=== PATIENT | male | born 1990 | race Caucasian/White ===

== ENCOUNTER 2024-11-18 13:19 | Outpatient (AMB) | payer OTHER, SELFPAY ==
--- NOTE | 2024-11-18 13:35 | MHC.PC.OV ---
Vital Signs 11/18/24 13:36 Height 5 ft 9.37 in Weight 201 lb 8 oz BMI 29.4 BP 114/76 Blood Pressure Location Lt brachial Position Sitting Pulse 73 Pulse Source Pulse Oximeter Temp 97.3 F Temp Source Temporal Artery Scan Pulse Oximetry (%) 97 Oxygen Delivery Method Room Air Intake Visit Reasons: establish care Web Systems Developer Required: No Accompanied by: Self / Same As Patient Allergies sulfamethoxazole (From Bactrim) Allergy (Severe, Verified 11/18/24 13:45) Hives trimethoprim (From Bactrim) Allergy (Severe, Verified 11/18/24 13:45) Hives Medication List - Last Reconciled 11/18/24 by Esteban Slaughter PA-C clotrimazole 1% appl topical DAILY ferrous sulfate 325 mg PO DAILY folic acid 1 mg PO DAILY loratadine 10 mg PO DAILY omeprazole 20 mg PO DAILY Tobacco use date assessed: 11/18/24 Dental Screening Dental Screen Date: 11/18/24 Did you have a dental visit in the last 12 months?: Yes Did you have a dental problem in the last 6 months where you did not have access to dental care?: No Was dental information given to patient?: Patient has dentist HPI establish care HPI Details The patient is a 34-year-old male presenting for a new patient visit and medication management. The patient reports a history of allergic rhinitis, primarily triggered by exposure to cats and seasonal allergens such as grass and tree pollen. He manages these symptoms with loratadine, which he requires regularly due to his significant allergic reactions. The patient has been diagnosed with gastroesophageal reflux disease, for which he takes omeprazole. He experiences occasional exacerbations, particularly after consuming spicy foods, and sometimes forgets to take his medication when asymptomatic. The patient was previously informed of anemia following an episode of severe illness characterized by vomiting and dehydration. He was advised to take iron supplements, which he continues to use. 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 1. Little interest or pleasure in doing things: not at all 2. Feeling down, depressed, or hopeless: not at all 3. Trouble falling or staying asleep, or sleeping too much: not at all 4. Feeling tired or having little energy: not at all 5. Poor appetite or overeating: not at all 6. Feeling bad about yourself - or that you are a failure or have let yourself or your family down: not at all 7. Trouble concentrating on things, such as reading the newspaper or watching television: not at all 8. Moving or speaking so slowly that other people could have noticed. Or the opposite - being so fidgety or restless that you have been moving around a lot more than usual: not at all 9. Thoughts that you would be better off or of hurting yourself in some way: not at all Total score: 0 Depression Screening Interpretation: Negative Depression Screening Done: Yes 66114 - PHQ-9 Billing: Yes Source: Developed by Drs. James Gutierrez, Lazara Lorenzo, Sammy Ceja and colleagues, with an educational kedar from [employer]. Thrive Questionnaire Date Thrive assessed: 11/18/24 I am a: Patient What is your living situation today?: I have a steady place to live Within the past 12 months, did the food you bought not last and you didn't have the money to get more?: I choose not to answer this question Within the past 12 months, did you worry whether your food would run out before you got money to buy more?: I choose not to answer this question Do you have trouble paying for medicines?: I choose not to answer this question Do you have trouble getting transportation to medical appointments?: I choose not to answer this question Do you have trouble paying your heating and electricity bill?: I choose not to answer this question Do you have trouble taking care of your child, family member or friend?: I choose not to answer this question Do you have trouble with day-to-day activities such as bathing, preparing meals, shopping, managing finances, etc.?: No Are you currently unemployed and looking for a job?: I choose not to answer this question Are you interested in more education?: I choose not to answer this question Please select the resources that you would like help with: None Currently or been in a relationship where the following occur: No concerns reported THRIVE Score: 0 AUDIT C Alcohol Use Questionnaire (AUDIT-C) 1. How often do you have a drink containing alcohol?: Never 3. How often do you have six or more drinks on one occasion?: Never Total Score: 0 BRISEIDA-7 AMB Questionnaire BRISEIDA-7 Date BRISEIDA - 7 assessed: 11/18/24 Feeling nervous, anxious, or on edge: 0 = Not at all Not being able to stop or control worryin = Not at all Worrying too much about different things: 0 = Not at all Trouble relaxin = Not at all Being so restless that it is hard to sit still: 0 = Not at all Becoming easily annoyed or irritable: 0 = Not at all Feeling afraid as if something awful might happen: 0 = Not at all Total BRISEIDA-7 score (0-4 normal; 5-9 mild; 10-14 moderate; 15-21 severe): 0 Source: Developed by Drs. James Gutierrez, Lazara Lorenzo, Sammy Ceja and colleagues, with an educational kedar from [employer]. BRISEIDA-7 Assessment Billing BRISEIDA-7 Assessment Tool: BRISEIDA-7 Assessment 19386 Review of Systems Const Denies headache(s) Eyes Denies loss of vision ENT Denies vertigo, Denies dizziness, Denies headache(s) and Denies sore throat Card Denies chest pain, Denies leg edema and Denies lightheadedness Resp Denies cough, Denies hemoptysis and Denies wheezing GI Denies abdominal pain, Denies melena, Denies constipation, Denies diarrhea and Denies vomiting Denies dysuria, Denies urinary frequency and Denies urinary urgency Musc Denies arthralgias, Denies joint swelling, Denies numbness and Denies tingling Neuro Denies Abnormal speech present, Denies behavioral changes, Denies vertigo, Denies dizziness, Denies headache(s), Denies loss of vision, Denies memory loss, Denies numbness and Denies tingling Psych Denies anxiety, Denies behavioral changes, Denies depression, Denies memory loss and Denies panic attacks Jesús/Lymph Denies easy bleeding and Denies easy bruising Aller/Immun Denies wheezing Physical exam (Primary Care) Vital Signs: Last Vital Signs Temp 97.3 F 11/18/24 13:36 Pulse 73 11/18/24 13:36 BP 114/76 11/18/24 13:36 Pulse Ox 97 11/18/24 13:36 Oxygen Delivery Method Room Air 11/18/24 13:36 BMI result Body Mass Index 29.4 Tobacco/Smoking Status: Tobacco use Status Tobacco use date assessed 11/18/24 11/18/24 13:42 Patient Tobacco Use Status Former Tobacco user (quit 11/18/24 13:50 about 5 years ago) Tobacco use type Cigarette 11/18/24 13:50 e-Cigarette/Vaping Use Former Use 11/18/24 13:50 PHQ-9: PHQ-9 Score PHQ-9: Total score 0 11/18/24 15:15 Depression Screening Interpretation: Negative Thrive Assessment: Date of Thrive Assessment Date Thrive assessed 11/18/24 11/18/24 13:42 Currently or been in a relationship where the following occur: No concerns reported Const General: healthy appearing, no acute distress, alert and awake Nutritional Appearance: well nourished Orientation/consciousness: oriented to person, oriented to place and oriented to time HENMT Ears: TM's normal bilaterally General nose exam: Normal nasal mucous membranes and turbinates present Eyes Conjunctivae: conjunctivae normal Sclerae: sclerae normal Pupils: Equal, round and reactive pupils present Neck Neck: Yes no lymphadenopathy and Yes no JVD Thyroid: Thyroid normal Carotids: no bruits Resp Effort & Inspection: normal respiratory effort and not tachypneic Auscultation: no crackles, no rales, no rhonchi and no wheezes Cardio Rate: regular rate Rhythm: regular rhythm Heart sounds: no murmurs and normal S1 and S2 GI Palpation (GI): Soft to palpation, nontender, no hepatomegaly and no splenomegaly Auscultation: normal bowel sounds Skin General skin exam: no rashes or lesions noted and dry skin Neuro General: oriented to person, oriented to place and oriented to time Cranial nerves: Yes Equal, round and reactive pupils present Speech: No Abnormal speech present Gait exam (Neuro): Normal gait present Motor exam (neuro): no tremor noted Extrem Right upper extremity: full ROM Left upper extremity: full ROM Right lower extremity: full ROM; no edema Left lower extremity: full ROM; no edema Psych Mental Status: mental status grossly normal Speech and movement: Normal speech and movement present Affect: normal affect Attitude: cooperative Thought process: Normal thought process present Immunizations Boostrix Tdap 2.5 Lf unit-8 mcg-5 Lf/0.5 mL intramuscular syringe Performing Provider: Esteban Slaughter PA-C [facility] Administered by: ROGELIO Cruz on 11/18/24 15:15 Dose Route Admin Location Dispensed Lot Number Expiration Date NDC Director Of Knowledge Management 0.5 mL IM Left Deltoid 0.5 mL [id number] 01/30/27 [id number] [employer] Total Dispensed Waste 0.5 mL 0 % VIS Given Date VIS Provided VIS Publication Date 11/18/24 Single Vaccine 24 Eligibility Eligibility Date Funding Source Not [facility] Eligible 11/18/24 Private Coding Level of Care Code New Pt Level 4 (98502) Diagnoses Gastroesophageal reflux disease without esophagitis K21.9 Esophagitis presence: without esophagitis Allergy, subsequent encounter T78.40XD Encounter type: subsequent encounter Screening for diabetes mellitus (DM) Z13.1 Iron deficiency anemia, unspecified iron deficiency anemia type D50.9 Anemia type: iron deficiency Iron deficiency anemia type: unspecified iron deficiency Additional Codes BRISEIDA-7 Assessment Billing - BRISEIDA-7 Assessment Tool: BRISEIDA-7 Assessment 13848 ([id number]) PHQ-9 - 88394 - PHQ-9 Billing: Yes ([id number]) Assessment & Plan Assessment & Plan (1) GERD (gastroesophageal reflux disease): Code(s): K21.9 - Gastro-esophageal reflux disease without esophagitis Category: Medical Qualifiers: Esophagitis presence: without esophagitis Qualified Code(s): K21.9 - Gastro-esophageal reflux disease without esophagitis Plan: Patient has a history of gastric reflux, uses omeprazole on nearly a daily basis. We did discuss the long-term effects of the medication and he is willing to try to use the medication on as needed basis and modify his diet to reduce his GERD symptoms. (2) Allergies: Code(s): T78.40XA - Allergy, unspecified, initial encounter Category: Medical Qualifiers: Encounter type: subsequent encounter Qualified Code(s): T78.40XD - Allergy, unspecified, subsequent encounter Plan: Continues to use loratadine on a daily basis. He reports he is mostly allergic to cats (3) Screening for diabetes mellitus (DM): Code(s): Z13.1 - Encounter for screening for diabetes mellitus Category: Medical Plan: As per HPI (4) Anemia: Code(s): D64.9 - Anemia, unspecified Category: Medical Qualifiers: Anemia type: iron deficiency Iron deficiency anemia type: unspecified iron deficiency Qualified Code(s): D50.9 - Iron deficiency anemia, unspecified Plan: The patient will continue iron supplementation, with follow-up labs to assess current anemia status and determine the necessity of ongoing treatment. Orders: Orders Complete Blood Count no Diff 11/18/24 D50.9 - Iron deficiency anemia, unspecified IRON PROFILE 11/18/24 D50.9 - Iron deficiency anemia, unspecified TDaP Immunization 11/18/24 K21.9 - Gastro-esophageal reflux disease without esophagitis, Z23 - Encounter for immunization Vitamin B12 and Folate 11/18/24 D50.9 - Iron deficiency anemia, unspecified, E53.8 - Deficiency of other specified B group vitamins Comprehensive [place]. Panel Fast 11/18/24 Z13.1 - Encounter for screening for diabetes mellitus Medications: New loratadine 10 mg PO DAILY 90 tabs 1RF 90 days T78.40XA - Allergy, unspecified, initial encounter omeprazole 20 mg PO DAILY 90 caps 1RF 90 days K21.9 - Gastro-esophageal reflux disease without esophagitis
[2024-11-18 13:36] VITALS: BP 114/76; PULSE 73; TEMP 36.3; O2SAT 97; BMI 29.4
--- OUTSIDE RECORDS SUMMARY | 2024-11-18 15:12 | XMS_ITS | Clinical Summary ---
Author Organization [facility] [address] [place] [address] [place] [phone] Phone Care Team Providers Care Genetic Coordinator Name Role Phone Unavailable Primary Care Provider Unavailabl e Allergies Active Allergy Reactions Criticality Noted Date Comments Sulfamethoxazole-Trimethoprim 2023 Other 03/20/2024 Seasonal Allergies Medications loratadine (CLARITIN) 10 mg tablet Take 1 tablet (10 mg total) by mouth 1 (one) time each day. 90 tablet 1 08/13/2024 Active omeprazole (PriLOSEC) [address] capsule Take 1 capsule (20 mg total) by mouth 1 (one) time each day. 90 capsule 1 08/13/2024 Active ferrous sulfate 325 mg (65 mg iron) EC tablet Take 1 tablet (325 mg total) by mouth 1 (one) time each day with breakfast. Do not crush, chew, or split. 90 each 08/20/2024 Active clotrimazole (LOTRIMIN) 1 % cream APPLY TO AFFECTED AREA TWICE A DAY 30 g 09/29/2024 Active folic acid (FOLVITE) 1 mg tablet TAKE 1 TABLET BY MOUTH 1 TIME EACH DAY. 30 tablet 09/29/2024 Active ondansetron (ZOFRAN) 4 mg tablet TAKE 1 TABLET (4 MG TOTAL) BY MOUTH EVERY 8 HOURS IF NEEDED FOR NAUSEA OR VOMITING FOR UP TO 7 DAYS. 20 tablet 09/29/2024 Active Active Problems Problem Noted Date Diagnosed Date Mild intermittent asthma 03/20/2024 Elevated blood pressure reading 03/20/2024 Encounters Date Type Department Care Team Description 10/29/[address] [facility] [address] [address] [place] [address] Preciado SantaADRIANA fuentes 10/24/2024 5:30 PM EDT - 10/24/2024 11:59 PM EDT Hospital Encounter [facility] MRI [address] [place] [phone] Cystic meniscus, unspecified medial meniscus, right knee Discharge Disposition: Home or Self Care 09/18/2024 10:00 AM EDT Office Visit Orthopedic Surgery - [place] [address] [facility] [address] [place] [phone] Jodi Rodriguez MD Cyst of medial meniscus of right knee (Primary Dx); Acute pain of right knee 08/26/2024 3:00 PM EDT Office Visit Adult [id number] [place], [place] [phone] Darya Meraz PA Balanitis (Primary Dx); Screen for STD (sexually transmitted disease) 08/22/2024 Telephone Adult [address] [phone] Josiah Tinoco MD std from Last 3 Months Immunizations Name Administration Dates Next Due Influenza Quadravalent, MDCK , 0.5ml, preservative free (Flucelvax) 6mo and older 05/06/2018 Surgical History Surgery Date Site/Laterality Comments SHOULDER SURGERY 01/01/2018 Right PROCEDURE: HISTORICAL SHOULDER SURGERY; COMMENT: open treatment of clavicular fracture, includes internal fixation. Medical History Medical History Date Comments Mild intermittent asthma DX:Mild intermittent asthma Tobacco abuse DX:Tobacco abuse Family History Relation Name Status Comments Brother Alive healthy Father Alive healthy Mother Alive healthy Social History Tobacco Use Types Packs/Day Years Used Date Smoking Tobacco: Former Cigarettes Smokeless Tobacco: Former Tobacco Cessation:Counseling Given: Not Answered Alcohol Use Standard Drinks/Week Comments Yes 0 (1 standard drink = 0.6 oz pur e alcohol) Sex and Gender Information Value Date Recorded Sex Assigned at Not on file Legal Sex Male 7:23 PM EST Gender Identity Not on file Sexual Orientation Not on file Obstetrics History Last Filed Vital Signs Vital Sign Reading Time Taken Comments Blood Pressure 136/88 08/26/2024 3:58 PM EDT Pulse 96 08/26/2024 2:56 PM EDT Temperature 36.8 ??C (98.3 ??F) 08/26/2024 2:56 PM ED T Respiratory Rate 18 08/26/2024 2:56 PM EDT Oxygen Saturation 97% 06/26/2024 8:33 AM EST Inhaled Oxygen Concentration - - Weight 93.9 kg (207 lb) 09/18/2024 10:12 AM EDT Height 177.8 cm (5' 10 ) 09/18/2024 10:12 AM EDT Body Mass Index 29.7 09/18/2024 10:12 AM EDT Plan of Treatment Health Maintenance Due Date Last Done Comments DTaP,Tdap,and Td Vaccines (1 - Tdap) 2010 Hepatitis A Vaccines (1 of 2 - Risk 2-dose series) 2010 Hepatitis B Vaccines (1 of 3 - 19+ 3-dose series) 2010 Pneumococcal Vaccine: Pediatrics (0 to 5 Years) and At-Risk Patients (6 to 64 Years) (1 of 2 - PCV) 2010 Depression Screening 05/06/2022 Social Influencers of Health Screening 05/06/2022 COVID-19 Vaccine (2023-2 5 season) 2024 Influenza Vaccine (Season Ended) 2025 05/06/2018 HIV Screening Completed 08/26/2024, 06/26/2024, 04/17/2023 Hepatitis C Screening Completed 08/26/2024 , 06/26/2024 HIB Vaccines Aged Out No longer eligi ble based on patient's age to complete this topic HPV Vaccines Aged Out No longer eligi ble based on patient's age to complete this topic IPV Vaccines Aged Out No longer eligi ble based on patient's age to complete this topic MMR Vaccines Aged Out No longer eligi ble based on patient's age to complete this topic Meningococcal ACWY Vaccine Aged Out N o longer eligible based on patient's age to complete this topic Meningococcal B Vaccine Aged Out No l onger eligible based on patient's age to complete this topic RSV Immunization Patients Under 20 months Aged Out No longer eligible b ased on patient's age to complete this topic Varicella Vaccines Aged Out No longer eligible based on patient's age to complete this topic Procedures Procedure Name Priority Date/Time Associated Diagnosis Comments MR KNEE WO CONTRAST RIGHT Routine 10/24/2024 6:10 PM EDT Cystic meniscus, unspecified medial meniscus, right knee HEPATITIS PANEL, ACUTE WITH REFLEX TO CONFIRMATION Routine 08/26/2024 3:43 PM EDT Screen for STD (sexually transmitted disease) HIV 1, 2 ANTIBODY, P24 ANTIGEN WITH REFLEX TO DIFFERENTIATION Routine 08/26/2024 3:43 PM EDT Screen for STD (sexually transmitted disease) TREPONEMA PALLIDUM ANTIBODY WITH REFLEX TO RPR AND PARTICLE AGGLUTINATION Routine 08/26/2024 3:43 PM EDT Screen for STD (sexually transmitted disease) HERPES SIMPLEX VIRUS 1 AND 2, IGG Routine 08/26/2024 3:43 PM EDT Screen for STD (sexually transmitted disease) CHLAMYDIA TRACHOMATIS AND NEISSERIA GONORRHOEAE PCR Routine 08/26/2024 3:43 PM EDT Screen for STD (sexually transmitted disease) from Last 3 Months Results * MR Knee wo Contrast Right (10/24/2024 6:10 PM EDT) Anatomical Region Laterality Modality Lower Extremities, Knee Right Magnetic Resonance 10/25/2024 4:56 AM EDT Impressions 10/25/2024 5:13 AM EDT 1. ??1.5 x 2.7 cm multiloculated ganglion at the level of the distal semimembranosus 2. ??Ruptured/leaking popliteal cyst with edema in the proximal right calf 3. ??Horizontal tearing of the body and posterior horn of the medial meniscus 4. ??Grade 1 MCL sprain -------- FINAL REPORT -------- Dictated By: Lata Waldrop Dictated Date: 10/25/2024 04:56 ET Assigned Physician: Lata Waldrop Reviewed and Electronically Signed By: Lata Waldrop Signed Date: 10/25/2024 05:13 ET Workstation ID: [id number] Transcribed By: Self Edit Transcribed Date: 10/25/2024 04:56 ET Narrative 10/25/2024 5:13 AM EDT INDICATION: cyst ??of medial meniscus of right knee ??palpable lump along the medial aspect of the knee. COMPARISON: ??None TECHNIQUE: ??Multiplanar, multisequence MRI examination was performed of the RIGHT knee without intravenous contrast. FINDINGS: Menisci:Horizontal signal involving the body and posterior horn of the medial meniscus in keeping with horizontal tear. ??Lateral meniscus is intact. Ligaments:Grade 1 MCL sprain. ??ACL, PCL and LCL complex are intact. ?? Tendons:Quadriceps mechanism and popliteus tendon are intact. Bones:No acute fracture or dislocation. ??Bone marrow signal is unremarkable. ??Mild lateral patellar tilt. Cartilage: Patellofemoral:Preserved Medial tibiofemoral:Mild superficial fissuring involving the weightbearing portion of the medial femoral condyle at site of patient's meniscal tear. Lateral tibiofemoral:Preserved Miscellaneous:Multiloculated fluid signal along the posterior medial aspect of the right knee at the level of the distal semimembranosus tendon measuring approximately 1.5 x 2.7 cm (series 2, image 7; series 3, image 29) in keeping with a ganglion. ??Ruptured/leaking popliteal cyst with mild edema within the proximal right calf. ??Right knee joint fluid. ??Mild prepatellar subcutaneous soft tissue swelling. Procedure Note Lata Waldrop MD - 10/25/2024 INDICATION: cyst of medial meniscus of right knee palpable lump alongthe medial aspect of the knee. COMPARISON: None TECHNIQUE: Multiplanar, multisequence MRI examination was performed ofthe RIGHT knee without intravenous contrast. FINDINGS: Menisci:Horizontal signal involving the body and posterior horn of themedial meniscus in keeping with horizontal tear. Lateral meniscus isintact. Ligaments:Grade 1 MCL sprain. ACL, PCL and LCL complex are intact. Tendons:Quadriceps mechanism and popliteus tendon are intact. Bones:No acute fracture or dislocation. Bone marrow signal isunremarkable. Mild lateral patellar tilt. Cartilage: Patellofemoral:Preserved Medial tibiofemoral:Mild superficial fissuring involving the weightbearingportion of the medial femoral condyle at site of patient's meniscaltear. Lateral tibiofemoral:Preserved Miscellaneous:Multiloculated fluid signal along the posterior medialaspect of the right knee at the level of the distal semimembranosus tendonmeasuring approximately 1.5 x 2.7 cm (series 2, image 7; series 3, image29) in keeping with a ganglion. Ruptured/leaking popliteal cyst with mildedema within the proximal right calf. Right knee joint fluid. Mildprepatellar subcutaneous soft tissue swelling. IMPRESSION: 1. 1.5 x 2.7 cm multiloculated ganglion at the level of the distalsemimembranosus 2. Ruptured/leaking popliteal cyst with edema in the proximal rightcalf 3. Horizontal tearing of the body and posterior horn of the medialmeniscus 4. Grade 1 MCL sprain -------- FINAL REPORT -------- Dictated By: Lata Waldrop Dictated Date: 10/25/2024 04:56 ET Assigned Physician: Lata Waldrop Reviewed and Electronically Signed By: Lata Waldrop Signed Date: 10/25/2024 05:13 ET Workstation ID: [id number] Transcribed By: Self Edit Transcribed Date: 10/25/2024 04:56 ET us Jodi Rodriguez MD IMG MRI PROCEDURES Final Resul t * HIV 1,2 antibody, p24 antigen with reflex to differentiation (08/26/2024 3:43 PM EDT) HIV Combo AB/AG Negative Negative LAB CHEMISTRY METHOD 08/26/2024 7:11 PM EDT [facility] Blood Venous blood specimen / Unknown Venipuncture / Unknown 08/26/2024 3:43 PM EDT 08/26/2024 3:43 PM EDT Narrative [facility] - 08/26/2024 7:11 PM EDT This assay is a 4th generation assay allowing for earlier detection of HIV infection by detecting the presence of the HIV-1 p24 antigen as well as the traditional antibodies to HIV type 1 (including group O) and type 2. ??Use of a 4th generation assay is the current CDC recommendation for HIV screening. [facility] Bahanna Meraz [place] LAB BLOOD ORDERABLES Fin al Result Performing Organization Address [facility]/ZIP Co de Phone Number [facility] [address] [place] [address], [place] [phone] * Treponema pallidum antibody with reflex to RPR and particle agglutination (08/26/2024 3:43 PM EDT) [facility] T. Pallidum Antibodies Negative Negative LAB CHEMISTRY METHOD 08/26/2024 8:06 PM EDT [facility] Blood Venous blood specimen / Unknown Venipuncture / Unknown 08/26/2024 3:43 PM EDT 08/26/2024 3:43 PM EDT [facility] [place] LAB BLOOD ORDERABLES Fin al Result Performing Organization Address [facility] Co de Phone Number [facility] [address] [place] [address], [place] [phone] * Hepatitis panel, acute with reflex to confirmation (08/26/2024 3:43 PM EDT) [facility] Hepatitis B Surface Ag Negative Negative LAB CHEMISTRY METHOD 08/26/2024 8:12 PM EDT [facility] Hepatitis A Antibody IgM Negative Negative LAB CHEMISTRY METHOD 08/26/2024 8:12 PM EDT [facility] Hep B Core IgM Negative Negative LAB CHEMISTRY METHOD 08/26/2024 8:12 PM EDT [facility] Hepatitis C Antibody Negative Negative LAB CHEMISTRY METHOD 08/26/2024 8:12 PM EDT [facility] Blood Venous blood specimen / Unknown Venipuncture / Unknown 08/26/2024 3:43 PM EDT 08/26/2024 3:43 PM EDT Draya Armstrong Bam ORTIZ LAB BLOOD ORDERABLES Fin al Result [facility] [address] [place] [address], [place] [phone] * Herpes simplex virus 1 and 2, IgG (08/26/2024 3:43 PM EDT) HSV 1 IgG 0.17 <=0.90 index luis miguel LAB CHEMISTRY METHOD 08/27/2024 10:20 AM EDT [facility] HSV-1 IgG Interpretation Negative Negative LAB CHEMISTRY METHOD 08/27/2024 10:20 AM EDT [facility] HSV 2 IgG 0.08 <=0.90 index luis miguel LAB CHEMISTRY METHOD 08/27/2024 10:20 AM EDT [facility] HSV-2 IgG Interpretation Negative Negative LAB CHEMISTRY METHOD 08/27/2024 10:20 AM EDT [facility] Blood Venous blood specimen / Unknown Venipuncture / Unknown 08/26/2024 3:43 PM EDT 08/26/2024 3:43 PM EDT Daryaemily SlaughterPattinicole ORTIZ LAB BLOOD ORDERABLES Fin al Result [facility] [address] [place] [address], [place] [phone] * Chlamydia trachomatis and Neisseria gonorrhoeae molecular study (08/26/2024 3:43 PM EDT) Neisseria gonorrhoeae PCR Negative Negative LAB MOLECULAR DIAGNOSTICS METHOD 08/27/2024 9:44 AM EDT [facility] Chlamydia trachomatis PCR Negative Negative LAB MOLECULAR DIAGNOSTICS METHOD 08/27/2024 9:44 AM EDT [facility] Swab First stream urine specimen / Unknown Non-blood Collection / Unknown 08/26/2024 3:43 PM EDT 08/26/2024 3:43 PM EDT Darya ORTIZ LAB MICROBIOLOGY - GENER AL ORDERABLES Final Result [facility] [address] [place] [address], from Last 3 Months Insurance [facility] Diagn[employer] PLAN
== END 2024-11-18 14:06 | disposition home or self-care (01) ==
PROVIDERS: PCP Physician Assistant; Visit Provider Physician Assistant
DX: K21.9 Gastro-esophageal reflux disease without esophagitis (principal); T78.40XD Allergy, unspecified, subsequent encounter; Z13.1 Encounter for screening for diabetes mellitus; D50.9 Iron deficiency anemia, unspecified

== ENCOUNTER → 2024-11-18 13:19 | Outpatient (BNVA) | payer OTHER, SELFPAY | PROVIDERS: Visit Provider Physician Assistant | DX: K21.9 Gastro-esophageal reflux disease without esophagitis (principal); J30.9 Allergic rhinitis, unspecified; D50.9 Iron deficiency anemia, unspecified; Z88.9 Allergy status to unspecified drugs, medicaments and biological substances; Z23 Encounter for immunization | CPT/HCPCS: 90471; 90715; 96127; 99202 ==

== ENCOUNTER 2025-01-08 09:39 | Outpatient (AMB) | payer OTHER, SELFPAY ==
[2025-01-08 09:47] VITALS: BP 102/60; PULSE 81; TEMP 36.7; O2SAT 96; BMI 30.3
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
--- OUTSIDE RECORDS SUMMARY | 2025-01-08 10:05 | XMS_ITS | Clinical Summary ---
Author Organization [facility] [address] [place] [address] [place] [phone] Phone Care Team Providers Care Kaiawhina Name Role Phone Unavailable Primary Care Provider [...] Care Team Description 10/29/2024 Telephone Orthopedic Surgery [facility] [address] [address] [place] [phone] Santa Preciado, ADRIANA 10/24/2024 5:30 PM EDT - 10/24/2024 11:59 PM EDT Hospital Encounter [facility] MRI [address] [place] [phone] Cystic meniscus, unspecified medial meniscus, right knee Discharge Disposition: Home or Self Care from Last 3 Months Immunizations Name Administration [...] 96 08/26/2024 2:56 PM EDT Temperature 36.8 C (98.3 F) 08/26/2024 2:56 PM EDT Respiratory Rate 18 08/26/2024 2:56 PM EDT [...] 5 Years) and At-Risk Patients (6 to 49 Years) (1 of 2 - PCV) 2010 Social Influencers of Health Screening 05/06/2022 COVID-19 Vaccine (1 - 2023-2 5 season) 2024 Depression Screening 06/04/2024 Influenza Vaccine (#1) 2025 05/06/2018 HIV Screening Completed 08/26/2024, 06/26/2024, [...] (sexually transmitted disease) from Last 3 Months or Most Recently Relevant to Health Maintenance Results * MR Knee wo Contrast Right (10/24/2024 6:10 PM EDT) Anatomical Region Laterality Modality Lower Extremities, Knee Right Magnetic Resonance 10/25/2024 4:56 AM EDT Impressions 10/25/2024 5:13 AM EDT 1. 1.5 x 2.7 cm multiloculated ganglion at the level of the distal semimembranosus 2. Ruptured/leaking popliteal cyst with edema in the proximal right calf 3. Horizontal tearing of the body and posterior horn of the medial meniscus 4. Grade 1 MCL sprain -------- FINAL REPORT -------- Dictated By: Lata Waldrop Dictated Date: 10/25/2024 04:56 ET Assigned Physician: Lata Waldrop Reviewed and Electronically Signed By: Lata Waldrop Signed Date: 10/25/2024 05:13 ET Workstation ID: [id number] Transcribed By: Self Edit Transcribed Date: 10/25/2024 04:56 ET Narrative 10/25/2024 5:13 AM EDT INDICATION: cyst of medial meniscus of right knee palpable lump along the medial aspect of the knee. COMPARISON: None TECHNIQUE: Multiplanar, multisequence MRI examination was performed of the RIGHT knee without intravenous contrast. FINDINGS: Menisci:Horizontal signal involving the body and posterior horn of the medial meniscus in keeping with horizontal tear. Lateral meniscus is intact. Ligaments:Grade 1 MCL sprain. ACL, PCL and LCL complex are intact. Tendons:Quadriceps mechanism and popliteus tendon are intact. Bones:No acute fracture or dislocation. Bone marrow signal is unremarkable. Mild lateral patellar tilt. Cartilage: Patellofemoral:Preserved Medial [...] image 29) in keeping with a ganglion. Ruptured/leaking popliteal cyst with mild edema within the proximal right calf. Right knee joint fluid. Mild prepatellar subcutaneous soft tissue swelling. Procedure Note [...] Signed Date: 10/25/2024 05:13 ET Workstation ID: [id number] Transcribed By: Self Edit Transcribed Date: 10/25/2024 04:56 ET us Jodi Rodriguez MD IMG MRI PROCEDURES Final Resul t * HIV 1,2 antibody, p24 antigen with reflex to differentiation (08/26/2024 3:43 PM EDT) [facility] HIV Combo AB/AG Negative Negative LAB CHEMISTRY METHOD 08/26/2024 7:11 PM EDT [facility] Blood Venous blood specimen / Unknown Venipuncture / Unknown 08/26/2024 3:43 PM EDT 08/26/2024 3:43 PM EDT Narrative [facility] - 08/26/2024 7:11 PM EDT This assay is a 4th generation assay allowing for earlier detection of HIV infection by detecting the presence of the HIV-1 p24 antigen as well as the traditional antibodies to HIV type 1 (including group O) and type 2. Use of a 4th generation assay is the current CDC recommendation for HIV screening. Darya ORTIZ LAB BLOOD ORDERABLES Fin al Result Performing Organization Address City/[facility]/ZIP Co de Phone Number [facility] [address] [place] [address], [place] [phone] * Hepatitis panel, acute with reflex to confirmation (08/26/2024 3:43 PM EDT) [facility] Hepatitis B Surface Ag Negative Negative LAB CHEMISTRY METHOD 08/26/2024 8:12 PM EDT [facility] Hepatitis A Antibody IgM Negative Negative LAB CHEMISTRY METHOD 08/26/2024 8:12 PM EDT [facility] Hep B Core IgM Negative Negative LAB CHEMISTRY METHOD 08/26/2024 8:12 PM EDT [facility] Hepatitis C Antibody Negative Negative LAB CHEMISTRY METHOD 08/26/2024 8:12 PM EDT [facility] Blood Venous blood specimen / Unknown Venipuncture / Unknown 08/26/2024 3:43 PM EDT 08/26/2024 3:43 PM EDT Darya ORTIZ LAB BLOOD ORDERABLES Fin al Result [facility] [address] [place] [address], from Last 3 Months or Most Recently Relevant to Health Maintenance Insurance [facility]
--- OUTSIDE RECORDS SUMMARY | 2025-01-08 10:05 | XMS_ITS | Clinical Summary ---
Author Organization [facility] Address [address] [address] Phone Care Team Providers Care Extrusion Die Repairer Name Role Phone Josiah Tinoco MD Primary Care Provider Allergies Active Allergy Reactions Criticality Noted Date Comments Sulfamethoxazole-Trimetho prim Hives 08/04/2024 Droperidol Dystonia High 08/04/2024 Abnormal mouth and tongue movements, restlessness and irritability Medications No known medications Social History Tobacco Use Types Packs/Day Years Used Date Smoking Tobacco: Never Assessed Education Answer Date Recorded Are you interested in more education? Not on wesley e 08/04/2024 Are you concerned about learning? Not on file 08/04/2024 No 08/04/2024 No 08/04/2024 Digital Access Answer Date Recorded No 08/04/2024 No 08/04/2024 Reliable internet access at home? Not on file 08/04/2024 Device with a working camera? Not on file Intimate Partner Violence Answer Date R ecorded Are you denied basic needs s uch as food, clothing, or medical care? No 08/04/2024 In the past 12 months have y ou been in a relationship with a person who hurts, threatens, or tries to control you? No 08/04/2024 Are you denied basic needs s uch as food, clothing, or medical care? No 08/04/2024 In the past 12 months have y ou been in a relationship with a person who hurts, threatens, or tries to control you? No 08/04/2024 Comments Unknown Sex and Gender Information Value Date Recorded Sex Assigned at Unknown 08/04/2024 12:12 PM EST Legal Sex Male 11:30 AM EST Gender Identity Other 08/04/2024 12:12 PM EST Sexual Orientation Don't know 08/04/2024 12 :12 PM EST Last Filed Vital Signs Vital Sign Reading Time Taken Comments Blood Pressure 141/87 08/04/2024 10:08 PM EST Pulse 82 08/04/2024 10:08 PM EST Temperature 37.2 C (99 F) 08/04/2024 10:08 PM EST Respiratory Rate 20 08/04/2024 10:08 PM EST Oxygen Saturation 97% 08/04/2024 10:08 PM EST Inhaled Oxygen Concentration - - Weight 81.6 kg (180 lb) 08/04/2024 11:36 AM EST Height 177.8 cm (5' 10 ) 08/04/2024 11:36 AM EST Body Mass Index 25.83 08/04/2024 11:36 AM EST Plan of Treatment Health Maintenance Due Date Last Done Comments Adult Td,Tdap Booster 1991 DEPRESSION SCREENING 2003 SMOKING Hx and SMOKELESS TOB ACCO SCREENING 2004 HEPATITIS C SCREENING 2009 HIV ONE-TIME SCREENING (18-6 5 YEARS) 2009 COVID-19 VACCINE ( - 2023-2 5 season) 2024 HEPATITIS A VACCINES Aged Out No long er eligible based on patient's age to complete this topic HIB VACCINES Aged Out No longer eligi ble based on patient's age to complete this topic MENINGOCOCCAL VACCINES (ACWY) Aged Out No longer eligible based on patient's age to complete this topic MENINGOCOCCAL VACCINES (B) Aged Out N o longer eligible based on patient's age to complete this topic PNEUMOCOCCAL VACCINES (0-49 years) Aged Out No longer eligible based on patient's age to complete this topic Medical Devices Not on file Insurance [facility] ACO [facility] [employer] [facility] [employer] Care Teams Extrusion Die Repairer Relationship Specialty Start Date End Date Josiah Tinoco MD [address] [place] [address] PCP - General 08/04/24 Additional Source Comments The information contained in this document represents components of the legal health record. It is not the complete legal health record.[facility]
--- OUTSIDE RECORDS SUMMARY | 2025-01-08 10:05 | XMS_ITS ---
Author Name [facility] Organization Unknown Care Team Organization Name Specialty Phone Email Start Date End Da te [facility] Josiah Tinoco Primary Care 08/09/202201/02 [facility] Jatinder Ross Primary Care 04/11/2022
== END 2025-01-08 11:10 | disposition home or self-care (01) ==
PROVIDERS: PCP Physician Assistant; Visit Provider Nurse Practitioner Family
DX: S70.02XA Contusion of left hip, initial encounter (principal); S20.212A Contusion of left front wall of thorax, initial encounter

== ENCOUNTER 2025-01-08 09:39 | Outpatient (REF) | payer OTHER, SELFPAY ==
--- NOTE | ~2025-01-08 | XR_ITS ---
EXAMINATION: XR RIBS, LEFT CLINICAL INFORMATION: S20.219A - Contusion of unspecified front wall of thorax, initial encounter COMPARISON: None available. TECHNIQUE: 3 views of the left ribs were obtained. FINDINGS: Lungs are clear. No consolidation, pneumothorax, or pleural effusion. The cardiomediastinal silhouette and pulmonary vasculature are normal. Osseous structures are unremarkable. Ribs are intact. No fractures are identified. XR/XR ribs LT min 3V w CXR1V IMPRESSION: No acute findings of the thorax or left ribs. Electronically signed by: Kurt Marquez MD 01/08/2025 10:40 AM EDT
--- NOTE | ~2025-01-08 | XR_ITS ---
EXAMINATION: XR HIP, LEFT CLINICAL INFORMATION: S70.02XA - Contusion of left hip, initial encounter COMPARISON: None available. TECHNIQUE: AP pelvis, and 2 views of the left hip. FINDINGS: No fracture, dislocation, or suspicious bone lesion. There is normal bone mineralization. The hip joints are intact and have a normal appearance. There is normal acetabular coverage. Femoral heads are normal in contour without evidence of AVN. The sacrum and SI joints appear normal. No soft tissue abnormalities. XR/XR hip LT w PEL1V IMPRESSION: Normal pelvis and left hip. Electronically signed by: Kurt Marquez MD 01/08/2025 10:39 AM EDT
== END 2025-01-08 09:40 | disposition home or self-care (01) ==
LOC: HO.HMGCX 09:39
PROVIDERS: PCP Physician Assistant; Visit Provider Nurse Practitioner Family
DX: S20.212A Contusion of left front wall of thorax, initial encounter (principal); S70.02XA Contusion of left hip, initial encounter; R07.81 Pleurodynia; M25.552 Pain in left hip; V18.0XXA Pedal cycle driver injured in noncollision transport accident in nontraffic accident, initial encounter
CPT/HCPCS: 71101; 73502; 99212

== ENCOUNTER → 2025-01-08 10:15 | Outpatient (BNV) | payer OTHER, SELFPAY | PROVIDERS: PCP Physician Assistant; Visit Provider Radiology Diagnostic Radiology | DX: R07.89 Other chest pain (principal); M25.552 Pain in left hip | CPT/HCPCS: 71101; 73502 ==

== ENCOUNTER 2025-01-13 12:52 | Outpatient (AMB) | payer OTHER, SELFPAY ==
--- OUTSIDE RECORDS SUMMARY | 2025-01-13 13:33 | XMS_ITS | Clinical Summary ---
Author Organization [facility] [address] [place] [address] [place] [phone] Phone Care Team Providers Care Trimmer Helper Name Role Phone Unavailable Primary Care Provider [...] Care Team Description 10/29/2024 Telephone Orthopedic Surgery [facility] [address] [address] [place] [phone] Santa Preciado, ARDIANA 10/24/2024 5:30 PM EDT - 10/24/2024 11:59 PM EDT Hospital Encounter [facility] MRI [address] [place] [phone] Cystic meniscus, unspecified medial meniscus, right knee [...] Signed Date: 10/25/2024 05:13 ET Workstation ID: [id number] Transcribed By: Self Edit Transcribed Date: 10/25/2024 [...] Signed Date: 10/25/2024 05:13 ET Workstation ID: [id number] Transcribed By: Self Edit Transcribed Date: 10/25/2024 04:56 ET us Jodi Rodriguez MD IMG MRI PROCEDURES Final Resul t * HIV 1,2 antibody, p24 antigen with reflex to differentiation (08/26/2024 3:43 PM EDT) [facility] HIV Combo AB/AG Negative Negative LAB CHEMISTRY METHOD 08/26/2024 7:11 PM EDT [facility] Blood Venous blood specimen / Unknown Venipuncture / Unknown 08/26/2024 3:43 PM EDT 08/26/2024 3:43 PM EDT Narrative [facility] - 08/26/2024 7:11 PM EDT This [...] ORDERABLES Fin al Result Performing Organization Address City/[facility]/ZIP Co de Phone Number [facility] [address] [place] [address], [place] [phone] * Hepatitis panel, acute with reflex to confirmation (08/26/2024 3:43 PM EDT) [facility] Hepatitis B Surface Ag Negative Negative LAB CHEMISTRY METHOD 08/26/2024 8:12 PM EDT [facility] Hepatitis A Antibody IgM Negative Negative LAB CHEMISTRY METHOD 08/26/2024 8:12 PM EDT [facility] Hep B Core IgM Negative Negative LAB CHEMISTRY METHOD 08/26/2024 8:12 PM EDT [facility] Hepatitis C Antibody Negative Negative LAB CHEMISTRY METHOD 08/26/2024 8:12 PM EDT [facility] Blood Venous blood specimen / Unknown Venipuncture / Unknown 08/26/2024 3:43 PM EDT 08/26/2024 3:43 PM EDT Darya ORTIZ LAB BLOOD ORDERABLES Fin al Result [facility] [address] [place] [address], from Last 3 Months or Most Recently Relevant to Health Maintenance Insurance [facility] HEALTH [facility]
--- OUTSIDE RECORDS SUMMARY | 2025-01-13 13:33 | XMS_ITS | Clinical Summary ---
Author Organization [facility] Address [address] [address] Phone Care Team Providers Care Security Risk Analyst Name Role Phone Josiah Tinoco MD Primary [...] topic Medical Devices Not on file Insurance [facility] [employer] ALLANCE [facility] Care Teams Security Risk Analyst Relationship Specialty Start Date End Date Josiah Tinoco MD [address] [place] [address] PCP - General 08/04/24 Additional Source Comments The information contained in this document represents components of the legal health record. It is not the complete legal health record.[facility]
[2025-01-13 13:41] VITALS: BP 110/78; PULSE 95; TEMP 36.7; O2SAT 96; BMI 30.4
--- NOTE | 2025-01-13 13:41 | MHC.OFFWIV ---
Intake Vital Signs 01/13/25 13:41 Height 5 ft 9 in Weight 206 lb BMI 30.4 BP 110/78 Blood Pressure Location Lt brachial Position Sitting Pulse 95 Pulse Source Pulse Oximeter Temp 98.0 F Temp Source Oral Pulse Oximetry (%) 96 Oxygen Delivery Method Room Air Intake Visit Reasons: EP rash under arm Intake Note: presents with itchy rash to left side of body, back and chest. Also c/o sore in nose. Patient Tobacco Use Status: Former Tobacco user (quit about 5 years ago) Allergies sulfamethoxazole (From Bactrim) Allergy (Severe, Verified 01/13/25 13:43) Hives trimethoprim (From Bactrim) Allergy (Severe, Verified 01/13/25 13:43) Hives Do you need a note to return to daycare/school/sports/work: No HPI HPI Comments History of Present Illness Details History - The patient is a 34-year-old male presenting with a rash with blisters. - The rash was first noticed last week, with blisters appearing under the armpit, on the neck, and back. - Initially thought to be bug bites, the blisters are itchy and sting, with some popping upon scratching. - The patient has been using Lotrimin and antibiotic ointment for relief, with no significant improvement. - The patient rides bikes frequently and is often outdoors, but does not recall specific exposure to plants or allergens. - No other systemic symptoms such as wheezing or shortness of breath were reported. - He denies new lotions, soaps, detergents, medications, foods, travel, pets, cologne, deodorants, or contact. Physical Exam General: Cooperative, healthy appearing, comfortable, no acute distress and well developed Orientation: Patient oriented x3 Limitations: No limitations Mouth: normal, moist oral mucosa Neck: Normal visual inspection with blisters noted, Yes full ROM Respiratory: Normal respiratory effort and able to speak in complete sentences. Clear to auscultation bilaterally. No w/r/r noted. Cardiovascular: RRR, no m/r/g noted. Normal S1 and S2 Skin: Erythematous, flat, dry, flaky, blanchable macules noted on the chest wall, left axilla, flank, back and neck. No discharge noted. No induration noted. No blisters noted. Patient was informed and verbally consented to the use of an ambient scribe for clinic note documentation during this visit [facility] Medical History (Updated 01/08/25 @ 10:14 by Lizabeth Garzon NP) Chest wall contusion Contusion of hip, left Social History (Updated 11/18/24 @ 13:50 by Esteban Slaughter PA-C) Housing: House Alcohol intake: current Alcohol intake frequency: holidays/special occasions only Patient Tobacco Use Status: Former Tobacco user (quit about 5 years ago) Tobacco use type: Cigarette e-Cigarette/Vaping Use: Former Use Substance Use Type: Marijuana service: No Current occupational status: employed Current occupation: [employer] - overnights Cognitive needs: No Hearing needs: No Vision needs: No Review of Systems Const All systems reviewed & are unremarkable except as noted in HPI and below Physical Exam Vital Signs: Last Vital Signs Temp 98.0 F 01/13/25 13:41 Pulse 95 01/13/25 13:41 BP 110/78 01/13/25 13:41 Pulse Ox 96 01/13/25 13:41 Oxygen Delivery Method Room Air 01/13/25 13:41 BMI result Body Mass Index 30.4 Assessment & Plan Assessment & Plan (1) Rash: Code(s): R21 - Rash and other nonspecific skin eruption Plan Most likely contact dermatitis vs fungal vs allergic reaction Plan - prednisone burst - clotimazole-betamethasone cream BID for 2 weeks - may need a referral to derm if no better - follow up with PCP Medications: New clotrimazole-betamethasone 1-0.05 % 1 appl topical BID 45 grams 0RF 2 weeks prednisone 40 mg (2 x 20 mg) PO DAILY 10 tabs 0RF Coding Level of Care Code Est Pt Level 3 (12793) Diagnoses Rash R21
== END 2025-01-13 15:22 | disposition home or self-care (01) ==
PROVIDERS: PCP Physician Assistant; Visit Provider Physician Assistant Medical
DX: R21 Rash and other nonspecific skin eruption (principal)

== ENCOUNTER → 2025-01-13 12:52 | Outpatient (BNVA) | payer OTHER, SELFPAY | PROVIDERS: PCP Physician Assistant; Visit Provider Physician Assistant Medical | DX: R21 Rash and other nonspecific skin eruption (principal) | CPT/HCPCS: 99212 ==

== ENCOUNTER 2025-01-20 10:09 | Outpatient (AMB) | payer OTHER, SELFPAY ==
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
[2025-01-20 10:16] VITALS: BP 120/68; PULSE 88; TEMP 36.3; O2SAT 98; BMI 31.0
--- OUTSIDE RECORDS SUMMARY | 2025-01-20 11:25 | XMS_ITS | Clinical Summary ---
Author Organization [facility] [address] [place] [address] [place] [phone] Phone Care Team Providers Care Chief Science Officer Name Role Phone Unavailable Primary Care Provider [...] Care Team Description 10/29/2024 Telephone Orthopedic Surgery [facility] [address] [address] [place] [phone] Santa Preciado, ADRIANA 10/24/2024 5:30 PM EDT - 10/24/2024 11:59 PM EDT Hospital Encounter [facility] MRI [address] [place] [phone] Cystic meniscus, unspecified medial meniscus, right knee [...] Signed Date: 10/25/2024 05:13 ET Workstation ID: [id number] Transcribed By: Self Edit Transcribed Date: 10/25/2024 [...] Signed Date: 10/25/2024 05:13 ET Workstation ID: [id number] Transcribed By: Self Edit Transcribed Date: 10/25/2024 04:56 ET us Jodi Rodriguez MD IMG MRI PROCEDURES Final Resul t * HIV 1,2 antibody, p24 antigen with reflex to differentiation (08/26/2024 3:43 PM EDT) [facility] HIV Combo AB/AG Negative Negative LAB CHEMISTRY METHOD 08/26/2024 7:11 PM EDT [facility] Blood Venous blood specimen / Unknown Venipuncture / Unknown 08/26/2024 3:43 PM EDT 08/26/2024 3:43 PM EDT Narrative [facility] - 08/26/2024 7:11 PM EDT [...] ORDERABLES Fin al Result Performing Organization Address City/[facility]/ZIP Co de Phone Number [facility] [address] [place] [address], [place] [phone] * Hepatitis panel, acute with reflex to confirmation (08/26/2024 3:43 PM EDT) [facility] Hepatitis B Surface Ag Negative Negative LAB CHEMISTRY METHOD 08/26/2024 8:12 PM EDT [facility] Hepatitis A Antibody IgM Negative Negative LAB CHEMISTRY METHOD 08/26/2024 8:12 PM EDT [facility] Hep B Core IgM Negative Negative LAB CHEMISTRY METHOD 08/26/2024 8:12 PM EDT [facility] Hepatitis C Antibody Negative Negative LAB CHEMISTRY METHOD 08/26/2024 8:12 PM EDT [facility] Blood Venous blood specimen / Unknown Venipuncture / Unknown 08/26/2024 3:43 PM EDT 08/26/2024 3:43 PM EDT Darya ORTIZ LAB BLOOD ORDERABLES Fin al Result [facility] [address] [place] [address], from Last 3 Months or Most Recently Relevant to Health Maintenance Insurance [facility]
--- OUTSIDE RECORDS SUMMARY | 2025-01-20 11:25 | XMS_ITS | Clinical Summary ---
Author Organization [facility] Address [address] [address] Phone Care Team Providers Care Mechanical Design Drafter Name Role Phone Josiah Tinoco MD Primary [...] file Insurance [facility] ACO [facility] [employer] ALLANCE ACO [facility] ALLANCE ACO Care Teams Mechanical Design Drafter Relationship Specialty Start Date End Date Josiah Tinoco MD [address] [place] [address] PCP - General 08/04/24 Additional Source Comments The information contained in this document represents components of the legal health record. It is not the complete legal health record.[facility]
== END 2025-01-20 12:31 | disposition home or self-care (01) ==
LOC: HO.HMCH 10:10
PROVIDERS: PCP Physician Assistant; Visit Provider Physician Assistant
DX: R21 Rash and other nonspecific skin eruption (principal); S70.02XD Contusion of left hip, subsequent encounter

== ENCOUNTER → 2025-01-20 10:09 | Outpatient (BNVA) | payer OTHER, SELFPAY | PROVIDERS: PCP Physician Assistant; Visit Provider Physician Assistant | DX: R21 Rash and other nonspecific skin eruption (principal); M54.9 Dorsalgia, unspecified; M25.519 Pain in unspecified shoulder; S70.02XD Contusion of left hip, subsequent encounter; V18.0XXD Pedal cycle driver injured in noncollision transport accident in nontraffic accident, subsequent encounter | CPT/HCPCS: 99212 ==

== ENCOUNTER 2025-02-06 10:03 | Outpatient (REF) | payer OTHER, SELFPAY ==
--- NOTE | ~2025-02-06 | XR_ITS ---
EXAMINATION: XR SHOULDER, LEFT CLINICAL INFORMATION: M25.512 - Pain in left shoulder COMPARISON: None available. TECHNIQUE: Two views of the left shoulder. FINDINGS: Normal bone mineralization. No fracture, dislocation, or suspicious bone lesion. Normal alignment. The glenohumeral joint is normal. The AC joint is normal. There is a type II acromion. No undersurface spurring. The subacromial space is preserved. Remainder of the soft tissue and bony structures appear normal. XR/XR shoulder LT min 2V IMPRESSION: Normal left shoulder. Electronically signed by: Kurt Marquez MD 02/06/2025 10:27 AM EDT
--- NOTE | ~2025-02-06 | XR_ITS ---
EXAMINATION: XR RIBS, BILATERAL CLINICAL INFORMATION: S29.9XXA - Unspecified injury of thorax, initial encounter COMPARISON: January 08, 2025 TECHNIQUE: AP chest. Oblique views both hemithoraces. FINDINGS: No consolidation, pleural effusion or pneumothorax. No hyperinflation. Cardiomediastinal silhouette size is normal. There is an osteotomy and probably superimposed traumatic deformity in the distal right clavicle into the right acromioclavicular joint region. Acute cortical disruption and slightly displaced abnormality in the anterior lateral aspect of the right 10th rib and likely right 11th rib. There is probably an old traumatic deformity involving the posterior lateral aspect of the left ninth rib. XR/XR ribs BI min 4V w CXR1V IMPRESSION: Acute minimally displaced right 10th and 11th rib fractures. No acute airspace disease. Old traumatic deformity and or prior surgery/osteotomy right clavicle. Text message via [employer] connect to the physician assistant clinical nurse manager Esteban Slaughter at 10:35 AM on February 06, 2025. Electronically signed by: León Brandt MD 02/06/2025 10:36 AM EDT
--- OUTSIDE RECORDS SUMMARY | 2025-02-06 10:58 | XMS_ITS | Clinical Summary ---
Author Organization [facility] Address [address] [address] Phone Care Team Providers Care Tai Chi Instructor Name Role Phone Josiah Tinoco MD Primary [...] topic Medical Devices Not on file Insurance [facility] [employer] [facility] [employer] [facility] [employer] [facility]CO [facility] [employer] ALLANCE [facility]CO [facility] [employer] ALLANCE ACO Care Teams Tai Chi Instructor Relationship Specialty Start Date End Date Josiah Tinoco MD [address] [place] [address] PCP - General 08/04/24 Additional Source Comments The information contained in this document represents components of the legal health record. It is not the complete legal health record.[facility]
--- OUTSIDE RECORDS SUMMARY | 2025-02-06 10:58 | XMS_ITS | Clinical Summary ---
Author Organization [facility] [address] [place] [address] [place] [phone] Phone Care Team Providers Care Baller Tender Name Role Phone Unavailable Primary Care Provider [...] asthma 03/20/2024 Elevated blood pressure reading 03/20/2024 Immunizations Name Administration Dates Next Due Influenza [...] 2010 Social Influencers of Health Screening 05/06/2022 Depression Screening 06/04/2024 COVID-19 Vaccine (1 - 2023-2 5 season) 2025 Influenza Vaccine (#1) 2025 05/06/2018 HIV Screening [...] Procedure Name Priority Date/Time Associated Diagnosis Comments HEPATITIS PANEL, ACUTE WITH REFLEX TO CONFIRMATION Routine 08/26/2024 3:43 PM EDT Screen for STD (sexually transmitted disease) HIV 1, 2 ANTIBODY, P24 ANTIGEN WITH REFLEX TO DIFFERENTIATION Routine 08/26/2024 3:43 PM EDT Screen for STD (sexually transmitted disease) from Last 3 Months or Most Recently Relevant to Health Maintenance Results * HIV 1,2 antibody, p24 antigen with reflex to differentiation (08/26/2024 3:43 PM EDT) HIV Combo AB/AG Negative Negative LAB CHEMISTRY METHOD 08/26/2024 7:[address] [facility] Blood Venous blood specimen / Unknown Venipuncture / Unknown 08/26/2024 3:43 PM EDT 08/26/2024 3:[address] [facility] - 08/26/2024 7:11 PM EDT [...] ORTIZ LAB BLOOD ORDERABLES Fin al Result [facility] [address] [place] [address], [place] [phone] * Hepatitis panel, acute with reflex to confirmation (08/26/2024 3:43 PM EDT) Hepatitis B Surface Ag Negative Negative LAB CHEMISTRY METHOD 08/26/2024 8:[address] [facility] Hepatitis A Antibody IgM Negative Negative LAB CHEMISTRY METHOD 08/26/2024 8:[address] [facility] Hep B Core IgM Negative Negative LAB CHEMISTRY METHOD 08/26/2024 8:[address] [facility] Hepatitis C Antibody Negative Negative LAB CHEMISTRY METHOD 08/26/2024 8:[address] [facility] Blood Venous blood specimen / Unknown Venipuncture / Unknown 08/26/2024 3:43 PM EDT 08/26/2024 3:43 PM EDT Darya ORTIZ LAB BLOOD ORDERABLES Fin al Result Performing Organization Address [facility] Co de Phone Number [facility] [address] [place] [address], [place] [phone] from Last 3 Months or Most Recently Relevant to Health Maintenance Insurance [facility] [phone]
== END 2025-02-06 10:04 | disposition home or self-care (01) ==
LOC: HO.HMGCX 10:03
PROVIDERS: PCP Physician Assistant; Visit Provider Physician Assistant
DX: S29.9XXA Unspecified injury of thorax, initial encounter (principal); M25.512 Pain in left shoulder
CPT/HCPCS: 71111; 73030

== ENCOUNTER → 2025-02-06 10:07 | Outpatient (BNV) | payer OTHER, SELFPAY | PROVIDERS: PCP Physician Assistant; Visit Provider Radiology Diagnostic Radiology | DX: S22.41XA Multiple fractures of ribs, right side, initial encounter for closed fracture (principal); M25.512 Pain in left shoulder | CPT/HCPCS: 71111; 73030 ==

== ENCOUNTER 2025-02-18 08:29 | Outpatient (AMB) | payer OTHER, SELFPAY ==
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
[2025-02-18 08:42] VITALS: BP 122/63; PULSE 71; BMI 30.9
--- OUTSIDE RECORDS SUMMARY | 2025-02-18 09:38 | XMS_ITS | Clinical Summary ---
Author Organization [facility] [address] [place] [address] [place] [phone] Phone Care Team Providers Care Java Lead Architect Name Role Phone Unavailable Primary Care Provider [...] LAB CHEMISTRY METHOD 08/26/2024 7:11 PM EDT [facility] Blood Venous blood specimen / Unknown Venipuncture / Unknown 08/26/2024 3:43 PM EDT 08/26/2024 3:43 PM EDT Narrative [facility] - 08/26/2024 7:11 [...] ORTIZ LAB BLOOD ORDERABLES Fin al Result [facility] [address] [place] [address], [place] [phone] * Hepatitis panel, acute with reflex to confirmation (08/26/2024 3:43 PM EDT) Hepatitis B Surface Ag Negative Negative LAB CHEMISTRY METHOD 08/26/2024 8:12 PM EDT [facility] Hepatitis A Antibody IgM Negative Negative LAB CHEMISTRY METHOD 08/26/2024 8:12 PM EDT [facility] Hep B Core IgM Negative Negative LAB CHEMISTRY METHOD 08/26/2024 8:12 PM EDT [facility] Hepatitis C Antibody Negative Negative LAB CHEMISTRY METHOD 08/26/2024 8:12 PM EDT [facility] Blood Venous blood specimen / Unknown Venipuncture / Unknown 08/26/2024 3:43 PM EDT 08/26/2024 3:43 PM EDT Darya ORTIZ LAB BLOOD ORDERABLES Fin al Result Performing Organization Address [facility] Co de Phone Number [facility] [address] [place] [address], [place] [phone] from Last 3 Months or Most Recently Relevant to Health Maintenance Insurance [facility]
--- OUTSIDE RECORDS SUMMARY | 2025-02-18 09:38 | XMS_ITS | Clinical Summary ---
Author Organization [facility] Address [address] [address] Phone Care Team Providers Care Laborer Hoisting Name Role Phone Josiah Tinoco MD Primary [...] HIV ONE-TIME SCREENING (18-6 5 YEARS) 2009 INFLUENZA VACCINE (#1) 2025 COVID-19 VACCINE ( - 2023-2 5 season) 2025 HEPATITIS A VACCINES Aged Out No long [...] topic Medical Devices Not on file Insurance [email or web address] [employer] A[employer] [email or web address] Member Subscriber Plan / Payer (Ef fective 2018-Present) Name:Chi Amaro Relation to Subscriber:Self Name:Chi Amaro Payer ID:[id number] Group ID:[id number] Type:Medicaid Address: [place] [id number] [facility] GREENEDr[facility] Tar[facility]REUN[facility] [address] [place] [address] [facility] Care Teams Laborer Hoisting Relationship Specialty Start Date End Date Josiah Tinoco MD [address] [place] [id number] PCP - General 08/04/24 Additional Source Comments The information contained in this document represents components of the legal health record. It is not the complete legal health record.[facility]
== END 2025-02-18 08:48 | disposition home or self-care (01) ==
LOC: HO.HGS 08:30
PROVIDERS: PCP Physician Assistant; Visit Provider Surgery
DX: S70.02XA Contusion of left hip, initial encounter (principal)
CPT/HCPCS: 99203

== ENCOUNTER → 2025-02-18 08:29 | Outpatient (BNVA) | payer OTHER, SELFPAY | PROVIDERS: PCP Physician Assistant; Visit Provider Surgery | DX: S70.02XA Contusion of left hip, initial encounter (principal) | CPT/HCPCS: 99202 ==

== ENCOUNTER 2025-02-25 07:29 | Outpatient (AMB) | payer OTHER, SELFPAY ==
--- OUTSIDE RECORDS SUMMARY | 2025-02-25 07:31 | XMS_ITS | Clinical Summary ---
Author Organization [facility] Address [address] [address] Phone Care Team Providers Care Service Transformer Repair Supervisor Name Role Phone Josiah Tinoco MD Primary [...] topic Medical Devices Not on file Insurance [facility] [employer] ACO [facility] Member Subscriber Plan / Payer (Ef fective 2018-Present) Name:Chi Amaro Relation to Subscriber:Self Name:Chi Amaro Payer ID:[id number] Group ID:[id number] Type:Medicaid Address: [place] [id number] [facility] SYSTEMBuxfer[facility]ICK[facility] [place] [address] [address] [place] [address] [facility] Care Teams Service Transformer Repair Supervisor Relationship Specialty Start Date End Date Josiah Tinoco MD [address] [place] [phone] PCP - General 08/04/24 Additional Source Comments The information contained in this document represents components of the legal health record. It is not the complete legal health record.[facility]
--- OUTSIDE RECORDS SUMMARY | 2025-02-25 07:31 | XMS_ITS | Clinical Summary ---
Author Organization [facility] [address] [place] [address] [place] [phone] Phone Care Team Providers Care Drilling Field Specialist Name Role Phone Unavailable Primary Care Provider [...] LAB CHEMISTRY METHOD 08/26/2024 7:11 PM EDT [facility] Blood Venous blood specimen / Unknown Venipuncture / Unknown 08/26/2024 3:43 PM EDT 08/26/2024 3:43 PM EDT Narrative [facility] - 08/26/2024 7:11 PM EDT [...] ORTIZ LAB BLOOD ORDERABLES Fin al Result [facility] [address] [place] [address], [place] [phone] * Hepatitis panel, acute with reflex to confirmation (08/26/2024 3:43 PM EDT) Hepatitis B Surface Ag Negative Negative LAB CHEMISTRY METHOD 08/26/2024 8:12 PM EDT [facility] Hepatitis A Antibody IgM Negative Negative LAB CHEMISTRY METHOD 08/26/2024 8:12 PM EDT [facility] Hep B Core IgM Negative Negative LAB CHEMISTRY METHOD 08/26/2024 8:12 PM EDT [facility] Hepatitis C Antibody Negative Negative LAB CHEMISTRY METHOD 08/26/2024 8:12 PM EDT [facility] Blood Venous blood specimen / Unknown Venipuncture / Unknown 08/26/2024 3:43 PM EDT 08/26/2024 3:43 PM EDT Darya ORTIZ LAB BLOOD ORDERABLES Fin al Result Performing Organization Address [facility] Co de Phone Number [facility] [address] [place] [address], [place] [phone] from Last 3 Months or Most Recently Relevant to Health Maintenance Insurance [facility]
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
[2025-02-25 07:35] VITALS: BP 104/70; PULSE 74; RESP 16; TEMP 36.9; O2SAT 97; BMI 30.7
== END 2025-02-25 08:00 | disposition home or self-care (01) ==
PROVIDERS: PCP Physician Assistant; Visit Provider Physician Assistant
DX: M25.552 Pain in left hip (principal); W19.XXXD Unspecified fall, subsequent encounter

== ENCOUNTER → 2025-02-25 07:29 | Outpatient (BNVA) | payer OTHER, SELFPAY | PROVIDERS: PCP Physician Assistant; Visit Provider Physician Assistant | DX: M25.552 Pain in left hip (principal); S22.49XD Multiple fractures of ribs, unspecified side, subsequent encounter for fracture with routine healing; V19.9XXD Pedal cyclist (driver) (passenger) injured in unspecified traffic accident, subsequent encounter | CPT/HCPCS: 99212 ==

== ENCOUNTER 2025-04-13 12:36 | Outpatient (REF) | payer OTHER, SELFPAY ==
--- NOTE | ~2025-04-13 | XR_ITS ---
EXAMINATION: XR RIBS, BILATERAL CLINICAL INFORMATION: S22.31XA - Fracture of one rib, right side, initial encounter for closed... COMPARISON: February 06, 2025 TECHNIQUE: Oblique views both hemithoraces. FINDINGS: There is callus formation within the fracture 10th and 11th ribs right hemithorax. No new fractures. No gross pneumothorax i XR/XR ribs BI 3V IMPRESSION: Healing fractures, right 10th and 11th ribs. Electronically signed by: León Brandt MD 04/13/2025 02:36 PM EST RP
--- OUTSIDE RECORDS SUMMARY | 2025-04-13 14:45 | XMS_ITS | Data Portability ---
Author Organization [facility], [facility] Address [address] [place] [address] Care Team Providers Care Social Studies Department Chair Name Role Phone [facility] Prim rody Care Provider Assessment Encounter Date Assessment Date Assessment LastModified by Organization Details LastModified Time 08/14/2024 08/14/2024 Assessment: Pt is maintaining full prom in all planes at this time. Gentle strengthening with gravity assist was tolerable without progressing symptoms. Plan: Continued POC [email or web address] Not available 08/14/2024 10:08:27 08/19/2024 08/19/2024 Assessment: Pt doing very well throughout his course of treatment. Able to complete all strength phase exercises with appropriate fatigue. Plan: Continued POC [email or web address] Not available 08/19/2024 09:41:42 08/21/2024 08/21/2024 Assessment: Pt doing very well throughout his course of treatment. Able to complete all strength phase exercises with appropriate fatigue. Plan: Continued POC [email or web address] Not available 08/20/2024 10:53:25 08/25/2024 08/25/2024 Assessment: At this time the patient is able to actively elevate overhead without challenges. Functionally he is performing all adl's without difficulties or challenges. No increased pain throughout the rx. Plan: D/c next visit [email or web address] Not available 08/25/2024 11:38:12 Plan of Treatment Reminders Order Date Submit Date Provider Last Modified By Organization Details Last Modified Time Details Appointments NEW PATIENT 15 2024 03:15P Zara Harper PA-C Not available Not available Not available Lab None recorded . Referral None recorded . Procedures None recorded . Surgeries None recorded . Imaging XR, knee, 3 view - room 217 right knee 2024 025 [email or web address] [facility], [address], [address], [place], [address], 12/08/2024 09:23:29 Medication Orders None recorded . Patient TargetsNo targets recorded. Patient InstructionsNo instructions recorded. Reason for Referral None Reported. Results Created Date Observation Date Name Description Value Unit Range Abnormal Flag Note LastModifiedBy Organization Detail LastModifiedTime 12/05/1912/04/2024 XR, knee, 3 view http:/ [email or web address] ?Encry pted=s hAaTro YD8dLq bEUv6g %2BXZw aYqtaq 0bqfl% 2Fg9IQ a4ajBk vP9nXo QUaueC m3YtLR FvZlgJ JJ8mAn HZtai3 9b2566 AC0Kla X6EVae vKiQtr MwF INTERFACE [facility] [address], [place], [address], 12/04/2024 14:11:19 12/05/19 25 12/04/2024 XR, knee, 3 view http:/ [email or web address] ?Encry pted=s hAaTro YD8dLq bEUv6g %2BXZw aYqtaq 0bqfl% 2Fg9IQ a4ajBk vP9nXo QUaueC m3YtLR F[facility] HZtai3 9r4650 AC0Kla X6EVae vKiQtr MwF INTERFACE [facility] [address], [place], [address], 12/04/2024 14:11:21 Result Notes Documentation Provider Name and Address Organization Details Recorded Time Xr, Knee, 3 View : [email or web address] Encrypted=zrPfIilTW6rVemQ Uv6g%0MJMeyIcgsu7dges%2Fg 3JMh1ufTcsQ3bMdDKumvJn9Ix ANDtCkuCIU8bLmPCccl09w750 7RQ3BujI4VHlqfNcGreLjN Not Available [facility] 12/04/2024 14:11: 20 Xr, Knee, 3 View : [email or web address] Encrypted=pjLpXfwED3aTftX Uv6g%2LFIkrAkwcs1ijue%2Fg 7DZw3hoIehT7xWnYIvdlMp1Yd WOXxZalFDZ3nKfGAljx63x937 1RH1BjkV6LGqjxVwXdfSiX Not Available [facility] 12/04/2024 14:11: 22 Problems Name Problem SNOMED Code Status Onset Date Resolution Date Notes Provider Name and Address Organization Details Recorded Time No complaint s [id number] Active Status: 'I'; Not Available [facility] 4 09:16:31 Closed fracture of shaft of right clavicle 550916487643 Active 2017 Problem Code: S42.021A ; Problem Code Type: ICD-10; Status: 'A'; Not Available [facility] 4 11:14:31 Fracture of clavicle 04474808 Active 2017 Problem Code: S42.001D ; Problem Code Type: ICD-10; Status: 'A'; Not Available [facility] 4 11:14:31 Closed fracture of right clavicle 500497333953 Active 2017 Problem Code: S42.001A ; Problem Code Type: ICD-10; Status: 'A'; Not Available [facility] 4 11:14:32 Contusion of left thumb 067050789682 Active 2018 Problem Code: S60.012A ; Problem Code Type: ICD-10; Status: 'A'; Not Available [facility] 4 11:14:31 Closed fracture of acromial end of right clavicle 772698054729 Active 2019 Problem Code: S42.034A ; Problem Code Type: ICD-10; Status: 'A'; Not Available [facility] 4 11:14:32 Removal of internal fixation device Active 2019 Problem Code: Z47.2; Problem Code Type: ICD-10; Status: 'A'; Not Available [facility] 4 11:14:31 Fracture of acromial end of clavicle 36617021 Active 2019 Problem Code: S42.034D ; Problem Code Type: ICD-10; Status: 'A'; Not Available [facility] 4 11:14:31 Fracture of shaft of clavicle 14179212 Active 2019 Problem Code: S42.021D ; Problem Code Type: ICD-10; Status: 'A'; Not Available [facility] 4 11:14:32 Pain of right knee joint 869947038979 100 Active 2023 Monroe Long MD [address], [place], [address] , [facility] 4 14:26:49 Fracture of clavicle 57393785 Active 2023 Santo Case MD [address], [place], [address] , [facility] 4 11:24:41 Arthritis of acromiocl avicular joint 839605102 Active 2023 Santo Case MD [address], [place], [address] , [facility] 4 11:24:41 Clavicle pain 294272454 Active 2023 Santo Case MD [address], [place], [address] , [facility] 4 11:24:41 Impingeme nt syndrome of left shoulder region 225797564518 104 Active 2024 JOSE A MendozaT [address], [place], [address] , [facility] 5 13:48:32 Tear of medial meniscus of knee 166446518 Active 2024 Neena Quezada PA-C [address], [place], [address] , [facility] 14:27:52 Mass of knee joint 828479082 Active 2024 Neena Quezada PA-C [address], [place], [address] , [facility] 14:27:57 Problem Notes None recorded. Procedures Surgical History Date Name Laterality Status Provider Name and Address Organization Details Recorded Time 86223 Therapeutic Exercise (1:1) cancelled Esteban Echevarria DPT [address], [place], [address], [facility] 08/27/2024 08:08:59 5 88220: Hot or Cold Pack cancelled Esteban Echevarria DPT [address], [place], [address], [facility] 08/27/2024 08:08:59 5 17216: Manual therapy cancelled Esteban Echevarria DPT [address], [place], [address], [facility] 08/27/2024 08:08:59 5 39625 Therapeutic Exercise (1:1) completed Des Brand PTA [address], [place], [address], [facility] 08/25/2024 11:29:22 5 14906: Hot or Cold Pack completed Des Brand PTA [address], [place], [address], [facility] 08/22/2024 09:54:07 5 01682: Manual therapy completed Des Brand PTA [address], [place], [address], [facility] 08/25/2024 11:29:27 5 01976 Therapeutic Exercise (1:1) completed Des Brand PTA [address], [place], [address], [facility] 08/21/2024 09:57:49 5 10015: Hot or Cold Pack completed Des Brand TOU[facility]ER UP [address], [place], [address], [facility] 08/20/2024 10:53:25 5 73811 Therapeutic Exercise (1:1) completed Des Brand TOU[facility] UP [address], [place], [address], [facility] 08/19/2024 09:48:55 5 99124: Hot or Cold Pack completed Des Brand PTA [address], [place], [address], [facility] 08/19/2024 08:30:47 5 78286 Therapeutic Exercise (1:1) completed Des Brand PTA [address], [place], [address], [facility] 08/14/2024 10:06:53 5 61505: Hot or Cold Pack completed Des Brand PTA [address], [place], [address], [facility] 08/14/2024 10:06:38 5 32465: Manual therapy completed Des Brand PTA [address], [place], [address], [facility] 08/14/2024 10:06:28 5 23870 Therapeutic Exercise (1:1) completed Des Brand TOU[facility] UP [address], [place], [address], [facility] 08/12/2024 10:11:51 5 67726 Therapeutic Exercise (1:1) completed Des Brand, TOU[facility] UP [address], [place], [address], [facility] 07/23/2024 15:20:12 5 83895: Hot or Cold Pack completed Des Brand, TOU[facility] UP [address], [place], [address], [facility] 07/23/2024 11:13:28 5 00371 Therapeutic Exercise (1:1) completed Des Brand, TOU[facility] UP [address], [place], [address], [facility] 07/21/2024 11:11:32 5 15405: Hot or Cold Pack completed Des Brand, TOUCHER UP [address], [place], [address], [facility] 07/21/2024 11:11:32 5 15714 Therapeutic Exercise (1:1) completed Des Brand, TOUCHER UP [address], [place], [address], [facility] 07/15/2024 13:25:22 5 15371: Hot or Cold Pack completed Des Brand, TOUCHER UP [address], [place], [address], [facility] 07/16/2024 11:42:19 5 91355 Therapeutic Exercise (1:1) completed Esteban Echevarria, DPT [address], [place], [address], [facility] 07/14/2024 10:27:36 5 31695: Hot or Cold Pack completed Esteban Echevarria DPT [address], [place], [address], [facility] 07/14/2024 10:27:46 5 80117: Manual therapy completed Esteban Echevarria, JOSE AT [address], [place], [address], [facility] 07/14/2024 10:27:41 5 33612 Therapeutic Exercise (1:1) completed Esteban Echevarria DPT [address], [place], [address], [facility] 07/08/2024 13:35:42 5 96065: Low complexity PT Eval completed Esteban Echevarria DPT [address], [place], [address], [facility] 07/08/2024 13:35:34 4 Sports Shoulder 4&1 completed Santo Case MD [address], [place], [address], [facility] 04/09/2024 10:20:20 Imaging Results None recorded. Procedure Notes None recorded. Medical Equipment None Reported. Allergies Allergen ID Allergen Name Allergen Category Reaction Reaction Severity Criticality Documentation Date Start Date Code Code System Note Provider Name and Address Organization Details Recorded Time 75052 Bactrim medicatio n Not available Not available Not available 08/06/20232017 35853 9 RxNorm Not Available [facility] 4 14:33:28 Medications Name Sig Start Date Stop Date Status Note LastModified by Organization Details LastModified Time amoxicillin 500 mg capsule TAKE 1 CAPSULE EVERY 6 HRS UNTIL GONE active Not Available Not Available No t Available ibuprofen 800 mg tablet TAKE 1 TABLET EVERY 8 HOURS NEEDED FOR PAIN active Not Available Not Available No t Available ondansetron HCl 4 mg tablet TAKE 1 TABLET BY MOUTH EVERY 8 HOURS NEEDED FOR NAUSEA AND VOMITING active Not Available Not Available No t Available doxycycline monohydrate 100 mg tablet TAKE 1 TABLET BY MOUTH TWICE A DAY FOR 7 DAYS 08/27 completed Not Available Not Available Not Available acetaminoph en 500 mg tablet TAKE 1 TABLET BY MOUTH EVERY 6 HOURS NEEDED FOR PAIN active Not Available Not Available No t Available erythromyci n 5 mg/gram (0.5 %) eye ointment PLACE 1 APPLICATO R INTO BOTH EYES 4 TIMES DAILY FOR 7 DAYS. 08/27 completed Not Available Not Available Not Available omeprazole 20 mg capsule,del ayed release TAKE 1 CAPSULE BY MOUTH 1 TIME EACH DAY. active Not Available Not Available No t Available diclofenac sodium 75 mg tablet,saida yed release TAKE 1 TABLET BY MOUTH TWICE A DAY FOR 14 DAYS 08/27 completed Not Available Not Available Not Available folic acid 1 mg tablet active Not Available Not Available Not Available ferrous sulfate 325 mg (65 mg iron) tablet,saida yed release active Not Available Not Available Not Available clotrimazol e 1 % topical cream APPLY TO AFFECTED AREA TWICE A DAY active Not Available Not Available No t Available loratadine 10 mg tablet TAKE 1 TABLET BY MOUTH EVERY DAY FOR 90 DAYS active Not Available Not Available No t Available naproxen 500 mg tablet TAKE 1 TABLET BY MOUTH EVERY 12 HOURS NEEDED FOR PAIN active Not Available Not Available No t Available oxycodone 5 mg tablet TAKE 1-2 TABLETS EVERY 4-6 HOURS NEEDED FOR 5 DAYS active Not Available Not Available No t Available cyclobenzap rine 5 mg tablet TAKE 1 TABLET BY MOUTH THREE TIMES A DAY NEEDED FOR MUSCLE SPASM 08/27 completed Not Available Not Available Not Available oxycodone HCl-oxycodo ne-ASA 1 -2 Q6 PRN PAIN 08/30 completed Statu s: 'Disc ontin ued'; Not Available Not Available Not Available Paxlovid 300 mg (150 mg x 2)-100 mg tablets in a dose pack TAKE 2 TABLETS OF NIRMATREL VIR AND 1 TABLET OF RITONAVIR TWICE DAILY X 5 DAYS 07/04 completed Not Available Not Available Not Available Vitals Date Recorded Body height Body mass index (BMI) Body weight Provider Name and Address Organization Details Last Updated DateTime 08/14/2024 177.8 cm 26.5 kg/m2 20250.59 g Janel Lopez ID - [facility] 08/14/2024 10:54:15 Date Recorded Body height Body mass index (BMI) Body weight Provider Name and Address Organization Details Last Updated DateTime 12/04/2024 177.8 cm 26.5 kg/m2 64553.59 g Hansa Ramires ID - [facility] 12/04/2024 14:00:40 Social History None recorded. Functional Status Question Answer Note LastModified by Organizat ion Details LastModified Time How many times per week do you consume alcohol? Less than 1 time per week [email or web address] Information not available 10/03/2024 What is your level of alcohol consumption? Occasional [email or web address] Information not available 10/03/2024 Mental Status None recorded. Family History Nothing Reported. Medical History Condition Response Coronary Artery Disease N Anxiety/Depression N Emphysema N COPD N Pacemaker N Vascular Disease N Heart Trouble N Gastrointestinal Disease N Autoimmune disease N Inflammatory Joint disease N Orthotics N Arthritis Y Blood Clot N Acid Reflux (GERD) Y Cancer N Stroke N Circulation Problems N Rheumatoid Arthritis N Arrhythmia N Headaches N Fibromyalgia N Allergies/Hayfever Y Breathing or lung disorders Y Nerve Disorders N Thyroid Problems N Kidney/Bladder Problems N Anemia N Heart Attack (NV) N Cholesterol N Diabetes N Bleeding Disorder N Seizures/Epilepsy N AIDS/HIV N Congestive Heart Failure (CHF) N Asthma N Peripheral Vascular Disease N Sleep Apnea N Hepatitis N Heart Disease N Pulmonary Embolism N Hypertension N Osteoporosis N Past Encounters Encounter ID Performer Location Encounter Start Date Encounter Closed Date Diagnosis/Indication Diagnosis SNOMED-CT Code Diagnosis ICD10 Code Diagnosis IMO Codes Diagnosis Note [id number] MD Karri Lanier 3rd [facility] [address] [place] [id number] 08/28/2023 10:22:21 09/19/2023 12:54:58 Closed fracture of right clavicle 1066095526 3239822 S42.001A [id number] MD Karri Clark 3rd floor [address] [place] [id number] 10/08/2023 08:37:28 10/30/2023 17:32:53 Closed fracture of right clavicle 1122371109 1707151 S42.001A Closed fra cture of shaft of left clavicle 7114336985 0881906 S42.022A [id number] MD Karri Clark 3rd floor [address] [place] [id number] 11/08/2023 09:31:16 12/03/2023 07:39:03 Closed fracture of right clavicle 8403637021 3213217 S42.001A Closed fra cture of shaft of left clavicle 0794333802 5368207 S42.022A [id number] Mulugeta Champagne MD [facility] 3rd floor [address] [place] [id number] 02/01/2024 10:19:37 02/19/2024 11:15:27 Fracture of clavicle 38555823 S42.001D Clavicle pain 900567011 M25.512 Arthritis of acromioclavicular joint 189460489 M13.121 [id number] MD Kare[facility] [address] [place] [id number] 04/09/2024 09:47:13 05/08/2024 06:57:05 Arthritis of acromioclavicular joint 075377554 M13.819 Pain of le ft shoulder joint 0693707322 1244720 M25.512 963095 Osteoarthr itis of joint of left shoulder region 4037872104 23053 M19.012 Internal i mpingement of left shoulder 5771143861 673547 M75.42 [id number] SANDER Martins [facility] [address] [place] [id number] 07/04/2024 13:01:06 07/14/2024 12:06:56 Impingement syndrome of left shoulder region 5584387518 96860 M75.42 [id number] MARCELA Mendoza PT [address] [place] [id number] 07/08/2024 13:34:48 07/08/2024 14:01:19 Impingement syndrome of left shoulder region 3765063699 73669 M75.42 [id number] Arthritis of acromioclavicular joint 532564427 M13.598 [id number] MARCELA Mendoza PT [address] [place] [id number] 07/14/2024 10:06:55 07/14/2024 10:37:30 Arthritis of acromioclavicular joint 961582036 M13.819 Impingemen t syndrome of left shoulder region 4725949821 06128 M75.42 [id number] Des Brand PTA [facility] [address] [place] [id number] 07/16/2024 10:33:01 07/16/2024 11:53:20 Arthritis of acromioclavicular joint 469183154 M13.819 Impingemen t syndrome of left shoulder region 2067564042 43499 M75.42 [id number] Des Brand PTA [facility] [address] [place] [id number] 07/21/2024 11:08:48 07/21/2024 12:27:35 Arthritis of acromioclavicular joint 524251166 M13.819 Impingemen t syndrome of left shoulder region 8655426624 41241 M75.42 [id number] Des Brand PTA [facility] [address] [place] [id number] 07/23/2024 11:13:13 07/23/2024 15:28:00 Arthritis of acromioclavicular joint 044719312 M13.819 Impingemen t syndrome of left shoulder region 2908959148 47124 M75.42 [id number] DEEPTHI EspinozaA - [facility] [address] [place] [id number] 08/12/2024 09:06:46 08/12/2024 10:15:05 Arthritis of acromioclavicular joint 820068938 M13.819 Impingemen t syndrome of left shoulder region 1731804194 44576 M75.42 [id number] Des Brand PTA [facility] [address] [place] [id number] 08/14/2024 09:32:43 08/14/2024 10:09:36 Arthritis of acromioclavicular joint 887986279 M13.819 Impingemen t syndrome of left shoulder region 5756277249 53613 M75.42 [id number] SANDER [facility] [address] [place] [id number] 08/14/2024 10:31:06 09/02/2024 07:43:10 Impingement syndrome of left shoulder region 1382753621 72737 M75.42 [id number] [id number] Des Brand PTA [facility] [address] [place] [id number] 08/19/2024 09:04:46 08/19/2024 09:49:41 Arthritis of acromioclavicular joint 552340970 M13.819 Impingemen t syndrome of left shoulder region 7119823418 41079 M75.42 [id number] DEEPTHI EspinozaA - [facility] [address] [place] [id number] 08/21/2024 09:25:49 08/21/2024 09:58:43 Arthritis of acromioclavicular joint 022454848 M13.819 Impingemen t syndrome of left shoulder region 8708915453 96009 M75.42 [id number] Des Brand PTA [facility] [address] [place] [id number] 08/25/2024 11:00:23 08/25/2024 11:39:05 Arthritis of acromioclavicular joint 688473021 M13.819 Impingemen t syndrome of left shoulder region 7145452259 93323 M75.42 10388761 [id number] SANDER Arauz [address] floor [address] [place] [id number] 12/04/2024 13:53:52 12/18/2024 12:23:27 Pain of knee region 3505224929 M25.561 61311311 Tear of me dial meniscus of knee 360603539 S83.241A [id number] Reviewed patient's imaging and exam findings in detail with him. Discussed that he has a medial meniscus tear which is leaking fluid into an adjacent cyst which is likely. Swelling and warmth that he was localizing to the aspect of the knee. Discussed both operative and conservati ve treatment options for this. Discussed operative interventi on would include arthroscop y with partial medial meniscecto my and decompress ion of the cyst if we were able to localize it. However if he does not find it to be all that bothersome this is not something that has to be operated on at this point. Discussed that if he has minimal pain or mechanical symptoms he may continue with activities as tolerated. If symptoms worsen or swelling/c yst enlarges to a point where he finds it bothersome would recommend referral to Dr. Case to discuss arthroscop y with partial medial meniscecto my and cyst decompress ion. He is agreeable to this. States that it is not that bothersome and he would like to continue as it is. Mass of knee joint 54719 0009 M25.861 [id number] Health Concerns Section Related Observation LastModified by Organization Detai ls LastModified Time None Recorded Concern Status LastModified by Organization Details LastModified Time None Recorded Advance Directives Directive None Recorded Payers Insurance Date Sequence Insurance Name Policy Number Policy Christiansen Covered Member ID Christiansen Member ID Guarantor Name 11/05/2024 1 [facility] [employer] (MEDICAID HMO) [place] Chi Amaro [id number] Chi Amaro 04/13/2025 1 [facility] NET PLAN (MEDICAID HMO) [place] Chi Amaro [id number] Chi Amaro 11/05/2024 1 [place] [facility] Chi Amaro [id number] Chi Amaro Notes Date Note Type Note Provider Name and Address Organization Details Recorded Time 08/14/2024 text/html Patient reporting his shoulderis feeling sore coming into therapy. Des Brand, TOU[facility]ER [facility] [address], [place], [address], [facility] - [facility] 08/14/2024 10:09:30 08/14/2024 text/html I am seeing the patient today under the supervision of Dr. Sabillon who was available but who did not see the patient.Prasad returns in follow-up for left shoulder. Status post arthroscopy SADDCE on 06/24/2024. He has had to miss some physical therapy appointments due to stomach illness. For the most part he is doing well and is going to finish his remainder of sessions. No concerns at this time.Past family, medical, social history and review of systems has been reviewed, updated and signed by me and is located in the patient s chart.Examination:ROM full, 5/5 strength including rotator cuff and periscapular musculature. Good Muscle bulk and strength without atrophy. No evidence of instability of the shoulder. Negative impingement signs. Negative AC joint tenderness. Negative Speed's, Negative O'briens, Negative [place].Impression: Status post left shoulder SADDCE, doing wellPlan:. Transitional normal activities. Follow up us as needed. José Manuel Schaefer PA-C [address], [place], [address], [facility] 08/14/2024 11:05:08 08/19/2024 text/html Patient reporting his shoulderis feeling sore coming into therapy. Des Brand TOU[facility]ER UP [address], [place], [address], [facility] 08/19/2024 09:49:30 08/21/2024 text/html Patient reporting 1/10 left shoulder pain coming into therapy. Des Brand PTA [address], [place], [address], [facility] 08/21/2024 09:58:34 08/25/2024 text/html Patient reporting 0/10 left shoulder pain coming into therapy. Des Brand PTA [address], [place], [address], [facility] [facility] 08/25/2024 11:38:58 12/04/2024 text/html ROS as noted in the HPI I am seeing the patient under the general supervision of Dr. Mcqueen who was available but who did not see the patient. HPI:Patient is a 34 year old male who presents today with chief complaint of right knee pain. 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 He reports that in the winter months while he was recovering from shoulder surgery he noticed a lump on the medial aspect of his knee which became more prominent with flexion. It was somewhat tender to palpation along the medial aspect of his knee. However since the warmer weather has come around he is gone back to most of his baseline activities and states that the knee does not bother him as much currently. He does not notice the swelling as much. He did see his primary care provider out of [place] who obtained an MRI at [facility]. I do have the MRI results which demonstrate a medial meniscus tear with adjacent parameniscal cyst along the semimembranosus, ruptured Mars's cyst leaking into the calf. He denies any mechanical symptoms including catching, locking or buckling. DIAGNOSTIC IMAGIN view right knee radiographs were ordered, obtained and independently reviewed by myself during today's visit at [facility] and demonstrate well-preserved tricompartmental joint spaces. No fracture or dislocation. Patella tracking centrally in the groove. Impression:Normal right knee films Neena Quezada PA-C [address], [place], [address], [place] ID - [facility] 12/04/2024 14:29:27
--- OUTSIDE RECORDS SUMMARY | 2025-04-13 14:45 | XMS_ITS | Clinical Summary ---
Author Organization [facility] Address [address] [address] Phone Care Team Providers Care Security Rep Name Role Phone Josiah Tinoco MD Primary [...] VACCINE (#1) 2025 COVID-19 VACCINE ( - 2024-2 6 season) 2025 HEPATITIS A VACCINES Aged Out [...] topic Medical Devices Not on file Insurance [facility] [employer] [facility] Member Subscriber Plan / Payer (Ef fective 2018-Present) Name:Chi Amaro Relation to Subscriber:Self Name:Chi Amaro Payer ID:[id number] Group ID:[id number] Type:Medicaid Address: [place] [id number] [facility] [place] [address] [place] [address] [facility] Care Teams Security Rep Relationship Specialty Start Date End Date Josiah Tinoco MD [address] [place] [id number] PCP - General 08/04/24 Additional Source Comments The information contained in this document represents components of the legal health record. It is not the complete legal health record.[facility]
--- OUTSIDE RECORDS SUMMARY | 2025-04-13 14:45 | XMS_ITS | Clinical Summary ---
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 Name Role Phone Unavailable Primary Care Provider [...] 03/20/2024 Elevated blood pressure reading 03/20/2024 Immunizations Immunization Administration Dates Next Due Influenza Quadravalent, MDCK [...] Years) (1 of 2 - PCV) 2010 HPV Vaccines (1 - 3-dose SCD M series) 2018 Social Influencers of Health Screening 05/06/2022 Depression Screening 06/04/2024 COVID-19 Vaccine (2023-2 5 season) 2025 Influenza Vaccine (#1) 2025 05/06/2018 RSV Immunization Adult Patients (1 - 1-dose 75+ series) 2066 HIV Screening Completed 08/26/2024, 06/26/2024, 04/17/2023 Hepatitis [...] ORTIZ LAB BLOOD ORDERABLES Fin al Result [facility] [address] [place] [address], [place] [phone] * Hepatitis panel, acute with reflex to confirmation (08/26/2024 3:43 PM EDT) Pathologist [facility] Hepatitis B Surface Ag Negative Negative [...] Fin al Result Performing Organization Address [facility]/ZIP Co de Phone Number [facility] [address] [place] [address], [place] [phone] from Last 3 Months or Most Recently Relevant to Health Maintenance Insurance [facility]
[2025-04-13 16:08] LABS: Hematocrit 38.1 % (42.0-52.0); Hemoglobin 12.8 g/dl (14.0-18.0); Mean Corpuscular HGB Conc 33.6 g/dl (31.0-36.0); Mean Corpuscular Hemoglobin 30.3 pg (27.0-33.0); Mean Corpuscular Volume 90.1 fL (80.0-98.0); NRBC Abs Auto 0.000 X10*3/uL (0.0-0.012); NRBC Pct Auto 0.0 /100WBC (0.0-0.2); Platelet Count 447 X10*3/uL (160-400); Red Blood Count 4.23 X10*6/uL (4.60-5.80); White Blood Count 6.7 X10*3/uL (4.8-10.8)
[2025-04-13 16:55] LABS: Alanine Aminotransferase 40 U/L (0-40); Albumin Level 4.5 g/dL (3.5-5.0); Alkaline Phosphatase 53 U/L (39-117); Anion Gap 13 (12-20); Aspartate Amino Transferase 28 U/L (5-37); Blood Urea Nitrogen 9 mg/dL (9-16); Calcium 9.6 mg/dL (8.4-10.2); Carbon Dioxide 25 mmol/L (22-29); Chloride 105 mmol/L (96-108); Estimated Glomerular Filt Rate > 60; Iron 132 mcg/dL (45-160); Percent Iron Saturation 44 % (15-50); Potassium 4.3 mmol/L (3.3-5.1); Sodium 139 mmol/L (135-145); Total Iron Binding Capacity 303 mcg/dL (228-428); Total Protein 7.1 g/dL (6.5-8.0); Unsaturated Iron Binding 171 ug/dL
[2025-04-13 17:27] LABS: Folate 5.5 ng/mL (> or = 4.0); Vitamin B12 294 pg/mL (200-900)
== END 2025-04-13 12:37 | disposition home or self-care (01) ==
LOC: HO.HMGCX 12:36
PROVIDERS: PCP Physician Assistant; Visit Provider Physician Assistant
DX: Z13.1 Encounter for screening for diabetes mellitus (principal); E53.8 Deficiency of other specified B group vitamins; D50.9 Iron deficiency anemia, unspecified; S22.31XA Fracture of one rib, right side, initial encounter for closed fracture; S22.32XA Fracture of one rib, left side, initial encounter for closed fracture
CPT/HCPCS: 36415; 71110; 80053; 82607; 82746; 83540; 85027

== ENCOUNTER → 2025-04-13 13:08 | Outpatient (BNV) | payer OTHER, SELFPAY | PROVIDERS: PCP Physician Assistant; Visit Provider Radiology Diagnostic Radiology | DX: S22.41XD Multiple fractures of ribs, right side, subsequent encounter for fracture with routine healing (principal) | CPT/HCPCS: 71110 ==

== ENCOUNTER 2025-04-14 11:24 | Outpatient (AMB) | payer OTHER, SELFPAY ==
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
[2025-04-14 11:35] VITALS: BP 132/90; PULSE 79; TEMP 36.4; O2SAT 97; BMI 28.8
--- OUTSIDE RECORDS SUMMARY | 2025-04-14 13:34 | XMS_ITS | Clinical Summary ---
Author Organization [facility] [address] [place] [address] [place] [phone] Phone Care Team Providers Care Cord Cutter Name Role Phone Unavailable Primary Care Provider [...] Screening 05/06/2022 Depression Screening 06/04/2024 COVID-19 Vaccine ( - 2024-2 6 season) 2025 Influenza Vaccine (#1) 2025 05/06/2018 [...] LAB CHEMISTRY METHOD 08/26/2024 7:11 PM EDT [facility] Blood Venous blood specimen / Unknown Venipuncture / Unknown 08/26/2024 3:43 PM EDT 08/26/2024 3:43 PM EDT Narrative [facility] - 08/26/2024 7:11 PM [...] ORTIZ LAB BLOOD ORDERABLES Fin al Result [facility] [address] [place] [address], [place] [phone] * Hepatitis panel, acute with reflex to confirmation (08/26/2024 3:43 PM EDT) Pathologist [facility] Hepatitis B Surface Ag Negative Negative LAB CHEMISTRY METHOD 08/26/2024 8:12 PM EDT [facility] Hepatitis A Antibody IgM Negative Negative LAB CHEMISTRY METHOD 08/26/2024 8:12 PM EDT [facility] Hep B Core IgM Negative Negative LAB CHEMISTRY METHOD 08/26/2024 8:12 PM EDT [facility] Hepatitis C Antibody Negative Negative LAB CHEMISTRY METHOD 08/26/2024 8:12 PM EDT [facility] Blood Venous blood specimen / Unknown Venipuncture / Unknown 08/26/2024 3:43 PM EDT 08/26/2024 3:43 PM EDT Darya ORTIZ LAB BLOOD ORDERABLES Fin al Result Performing Organization Address [facility]/ZIP Co de Phone Number [facility] [address] [place] [address], [place] [phone] from Last 3 Months or Most Recently Relevant to Health Maintenance Insurance [facility]
--- OUTSIDE RECORDS SUMMARY | 2025-04-14 13:34 | XMS_ITS | Clinical Summary ---
Author Organization 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 [employer] [place] [address] [place] [address] [facility] [employer] Care Teams Sheet Metal Shop Supervisor Relationship Specialty Start Date End Date Josiah Tinoco MD [address] [place] [id number] PCP - General 08/04/24 Additional Source Comments The information contained in this document represents components of the legal health record. It is not the complete legal health record.[facility]
== END 2025-04-14 12:20 | disposition home or self-care (01) ==
LOC: HO.HMCH 11:25
PROVIDERS: PCP Physician Assistant; Visit Provider Physician Assistant
DX: R11.15 Cyclical vomiting syndrome unrelated to migraine (principal); S46.811A Strain of other muscles, fascia and tendons at shoulder and upper arm level, right arm, initial encounter

== ENCOUNTER → 2025-04-14 11:24 | Outpatient (BNVA) | payer OTHER, SELFPAY | PROVIDERS: PCP Physician Assistant; Visit Provider Physician Assistant | DX: R11.15 Cyclical vomiting syndrome unrelated to migraine (principal); S46.811A Strain of other muscles, fascia and tendons at shoulder and upper arm level, right arm, initial encounter | CPT/HCPCS: 99212 ==

== ENCOUNTER 2025-04-20 14:53 | Outpatient (AMB) | payer OTHER, SELFPAY ==
[2025-04-20 15:18] VITALS: BP 120/76; PULSE 71; TEMP 36.4; O2SAT 96; BMI 28.8
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
--- OUTSIDE RECORDS SUMMARY | 2025-04-21 05:22 | XMS_ITS | Clinical Summary ---
Author Organization [facility] [address] [place] [address] [place] [id number] Phone Care Team Providers Care Sound Cutter Name Role Phone Unavailable Primary Care [...] [facility] [address] [place] [address], [place] [phone] * Hepatitis panel, acute with reflex to confirmation (08/26/2024 3:43 PM EDT) Pathologist [facility] Hepatitis B Surface Ag Negative Negative [...] al Result Performing Organization Address [facility]/ZIP Co de Phone Number [facility] [address] [place] [address], [place] [phone] from Last 3 Months or Most Recently Relevant to Health Maintenance Insurance [facility] [employer]
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
--- OUTSIDE RECORDS SUMMARY | 2025-04-21 05:23 | XMS_ITS | Clinical Summary ---
Author Organization Located Within [facility] Address [address] [address] Phone Care Team Providers Care Ice Platform Supervisor Name Role Phone Josiah Tinoco MD [...] topic Medical Devices Not on file Insurance [facility] [address] [place] [address] [employer] [address] [place] [address] [employer] [place] [address] [place] [address] [facility] Ethics Resource GroupHON[facility]HE[facility] A[facility] Care Teams Ice Platform Supervisor Relationship Specialty Start Date End Date Josiah Tinoco MD [address] [place] [address] PCP - General 08/04/24 Additional Source Comments The information contained in this document represents components of the legal health record. It is not the complete legal health record.[facility]
== END 2025-04-20 16:04 | disposition home or self-care (01) ==
LOC: HO.HMCH 14:55
PROVIDERS: PCP Physician Assistant; Visit Provider Physician Assistant
DX: S49.91XA Unspecified injury of right shoulder and upper arm, initial encounter (principal); G44.319 Acute post-traumatic headache, not intractable; R07.81 Pleurodynia

== ENCOUNTER 2025-04-20 14:53 | Outpatient (REF) | payer OTHER, SELFPAY ==
--- NOTE | ~2025-04-20 | XR_ITS ---
EXAMINATION: XR SHOULDER, RIGHT CLINICAL INFORMATION: S49.91XA - Unspecified injury of right shoulder and upper arm, initial e... COMPARISON: None available. TECHNIQUE: Three views of the right shoulder. FINDINGS: There is chronic deformity involving the distal diaphysis of the clavicle. The AC joint is intact. There is short segment of absent bone involving the distal and of the clavicle otherwise that is likely postsurgical in nature. The glenohumeral joint is intact and unremarkable. XR/XR shoulder RT min 2V IMPRESSION: Suspected postsurgical changes with osteotomy of the distal clavicle with an intact AC joint. Otherwise, unremarkable right shoulder. Electronically signed by: Ceferino Zuluaga MD 04/20/2025 05:48 PM EST
--- NOTE | ~2025-04-20 | XR_ITS ---
EXAMINATION: XR RIBS, RIGHT CLINICAL INFORMATION: R07.81 - Pleurodynia COMPARISON: April 13, 2025 TECHNIQUE: 3 views of the right ribs were obtained. FINDINGS: There are fractures involving the lateral 10th and 11th right ribs with periosteal new bone formation Fractures appeared similar on the prior. XR/XR ribs RT 2V IMPRESSION: Subacute lateral right 10th and 11th rib fractures. Little to no interval change. Electronically signed by: Ceferino Zuluaga MD 04/20/2025 05:51 PM EST RP
== END 2025-04-20 14:54 | disposition home or self-care (01) ==
LOC: HO.XRAY 14:53
PROVIDERS: PCP Physician Assistant; Visit Provider Physician Assistant
DX: R07.81 Pleurodynia (principal); S49.91XA Unspecified injury of right shoulder and upper arm, initial encounter; G44.319 Acute post-traumatic headache, not intractable; Z79.899 Other long term (current) drug therapy; Z87.891 Personal history of nicotine dependence
CPT/HCPCS: 71100; 73030; 96127; 99212

== ENCOUNTER → 2025-04-20 16:11 | Outpatient (BNV) | payer OTHER, SELFPAY | PROVIDERS: PCP Physician Assistant; Visit Provider Radiology Diagnostic Radiology | DX: S22.41XA Multiple fractures of ribs, right side, initial encounter for closed fracture (principal); S49.91XA Unspecified injury of right shoulder and upper arm, initial encounter | CPT/HCPCS: 71100; 73030 ==

== ENCOUNTER 2025-04-22 08:38 | Outpatient (AMB) | payer OTHER, SELFPAY ==
--- NOTE | 2025-04-22 08:46 | MHC.OFFWIV ---
Intake Vital Signs 04/22/25 08:47 Height 5 ft 9 in Weight 195 lb BMI 28.8 BP 126/98 H Blood Pressure Location Lt brachial Position Sitting Pulse 82 Pulse Source Pulse Oximeter Temp 99.1 F Temp Source Oral Pulse Oximetry (%) 98 Oxygen Delivery Method Room Air Intake Visit Reasons: EP Sore throat, cough Intake Note: Patient presents c/o sore throat, runny nose since last night. Patient Tobacco Use Status: Former Tobacco user (quit about 5 years ago) Allergies sulfamethoxazole (From Bactrim) Allergy (Severe, Verified 04/22/25 08:49) Hives trimethoprim (From Bactrim) Allergy (Severe, Verified 04/22/25 08:49) Hives Do you need a note to return to daycare/school/sports/work: No HPI EP Sore throat, cough HPI Details This is a 35 year old male patient who presents to the [place] clinic today with report of a sore/itchy throat and runny nose since last night. No known exposure to sick contacts. No respiratory symptoms. Mild cough/post nasal drip. No fevers/chills. 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 occupation: [employer] - overnights Cognitive needs: No Hearing needs: No Vision needs: No Review of Systems Const All systems reviewed & are unremarkable except as noted in HPI and below Physical Exam Vital Signs: Last Vital Signs Temp 99.1 F 04/22/25 08:47 Pulse 82 04/22/25 08:47 BP 126/98 H 04/22/25 08:47 Pulse Ox 98 04/22/25 08:47 Oxygen Delivery Method Room Air 04/22/25 08:47 BMI result Body Mass Index 28.8 Const General: cooperative, healthy appearing, comfortable and no acute distress HEENT Head: Yes normal to inspection Ears: hearing grossly normal bilaterally, external ears normal and TM's normal bilaterally General nose exam: Normal external nose present Face and sinus: Yes normal facial exam and Yes sinuses nontender Mouth: Normal oral and palatal mucosa present and oropharynx normal Throat: Yes posterior oropharynx normal Neck Neck: Yes no lymphadenopathy Cardio Palpation: normal PMI Rate: regular rate Rhythm: regular rhythm Skin General skin exam: no rashes or lesions noted Extrem General: Yes capillary refill normal and Yes no clubbing, cyanosis or edema Psych Appearance: grossly normal Mental Status: mental status grossly normal Speech and movement: Normal speech and movement present Assessment & Plan Assessment & Plan (1) Upper respiratory infection, viral: Code(s): J06.9 - Acute upper respiratory infection, unspecified Plan: This is a 35-year-old male patient with symptoms consistent with viral upper respiratory infection /pharyngitis. Rapid strep was negative. COVID/flu / RSV swab was obtained, and patient aware he will be notified of results once these are available. Assessment is unremarkable. Advised conservative measures with rest, adequate hydration, amvh-ssw-uuisfrp cold/ flu products as needed for symptom management. He was advised to return to the clinic if he does not improve with time and conservative measures. Patient verbalizes understanding and agrees to plan. Work note provided. Orders: Orders AMB Rapid Strep Screen Today Z13.9 - Encounter for screening, unspecified SARS-CoV2/FLU/RSV Today R09.89 - Other specified symptoms and signs involving the circulatory and respiratory systems Coding Level of Care Code Est Pt Level 4 (66952) Diagnoses Upper respiratory infection, viral J06.9
[2025-04-22 08:47] VITALS: BP 126/98; PULSE 82; TEMP 37.3; O2SAT 98; BMI 28.8
--- OUTSIDE RECORDS SUMMARY | 2025-04-22 16:21 | XMS_ITS | Clinical Summary ---
Author Organization [facility] Address [address] [address] Phone Care Team Providers Care Trouble Lineman Name Role Phone Josiah Tinoco MD Primary [...] topic Medical Devices Not on file Insurance [facility] [place] [address] [place] [id number] [employer] [place] [address] [place] [id number] [employer] [facility] [employer] [place] [address] [place] [address] [facility] Inlet TechnologiesSOUTHEASTERN ARIZ[facility] ACO Care Teams Trouble Lineman Relationship Specialty Start Date End Date Josiah Tinoco MD [address] [place] [address] PCP - General 08/04/24 Additional Source Comments The information contained in this document represents components of the legal health record. It is not the complete legal health record.[facility]
--- OUTSIDE RECORDS SUMMARY | 2025-04-22 16:21 | XMS_ITS | Continuity of Care Document ---
Author Organization [facility], [facility] Address [address] [place] [address] Care Team Providers Care Pediatric Physician Name Role Phone [facility] Care Provider Assessment No assessment recorded. Plan of Treatment Reminders Order Date Submit Date Provider Last Modified By Organization Details Last Modified Time Details Appointments None record ed. Lab None record ed. Referral None record ed. Procedures None record ed. Surgeries None record ed. Imaging XR, hip + pelvis , unilat eral, 2 or 3 view - rm 216 2V left hip pain 025 04/16/20 [email or web address] [facility] Office, [address] [facility], [facility] [address], [place], [address], 5 16:48:10 Medication Orders None record ed. Patient TargetsNo targets recorded. Patient InstructionsNo instructions recorded. Reason for Referral None Reported. Results Created Date Observation Date Name Description Value Unit Range Abnormal Flag Note LastModifiedBy Organization Detail LastModifiedTime 04/16/20 25 04/16/2025 XR, hip + pelvi s, unila teral , 2 or 3 view http:/ [email or web address] ?Encry pted=s hAaTro YD8dLq bEUv6g %2BXZw aYqtaq 0bqfl% 2Fg9IQ a4ajBk vP9nXo QUaueC m3YtLR FvZlgJ JJ8mAn HZtai3 5c4199 AC0KlY 36HVaq nKiQtr MwF INTERFACE [facility] [address], [place], [address], 04/16/2025 15:22:53 04/16/2004/16/2025 XR, hip + pelvi s, unila teral , 2 or 3 view http:/ [email or web address] ?Encry pted=s hAaTro YD8dLq bEUv6g %2BXZw aYqtaq 0bqfl% 2Fg9IQ a4ajBk vP9nXo QUaueC m3YtLR FvZlgJ JJ8mAn HZtai3 0b2297 AC0KlY 36HVaq nKiQtr MwF INTERFACE [facility] [address] [facility] [address], [place], [address], 04/16/2025 15:22:55 Result Notes Documentation Provider Name and Address Organization Details Recorded Time Xr, Hip + Pelvis, Unilateral, 2 Or 3 View : [email or web address] Encrypted=tdWwTllZQ8uMxmN Uv6g%5ZPTziVytaj7qlcv%2Fg 7BJn5xwHqzI8nYpSYacuAq0Au TRWyTmtQPG3yNyURxcj80q256 6JU2DeN66BAmgvMoAbfBmU Not Available [facility] 04/16/2025 15:22: 54 Xr, Hip + Pelvis, Unilateral, 2 Or 3 View : [email or web address] Encrypted=gfMaBsgFP0yIapT Uv6g%8JAFatShprn6qufp%2Fg 4IEb9piYbjH8bEoWGamtEq6Ep KLUfKpjIWQ7mMiPHbuy82d601 3UM2YiU77FDslzJdUnxPyI Not Available [facility] 04/16/2025 15:22: 56 Problems Name Problem SNOMED Code Status Onset Date Resolution Date Notes Provider Name and Address Organization Details Recorded Time No complaint s 703098507 Active Status: 'I'; Not Available [facility] 09:16:31 Closed fracture of shaft of right clavicle 570125992856 00968 Active 2017 Problem Code: S42.021A ; Problem Code Type: ICD-10; Status: 'A'; Not Available [facility] 4 11:14:31 Fracture of clavicle 58267603 Active 2017 Problem Code: S42.001D ; Problem Code Type: ICD-10; Status: 'A'; Not Available [facility] 4 11:14:31 Closed fracture of right clavicle 942839270497 Active 2017 Problem Code: S42.001A ; Problem Code Type: ICD-10; Status: 'A'; Not Available [facility] 4 11:14:32 Contusion of left thumb 131707885629 Active 2018 Problem Code: S60.012A ; Problem Code Type: ICD-10; Status: 'A'; Not Available [facility] 4 11:14:31 Closed fracture of acromial end of right clavicle 481173375881 16453 Active 2019 Problem Code: S42.034A ; Problem Code Type: ICD-10; Status: 'A'; Not Available [facility] 4 11:14:32 Removal of internal fixation device Active 2019 Problem Code: Z47.2; Problem Code Type: ICD-10; Status: 'A'; Not Available [facility] 4 11:14:31 Fracture of acromial end of clavicle 31749555 Active 2019 Problem Code: S42.034D ; Problem Code Type: ICD-10; Status: 'A'; [facility] Available [facility] 4 11:14:31 Fracture of shaft of clavicle 96136649 Active 2019 Problem Code: S42.021D ; Problem Code Type: ICD-10; Status: 'A'; Not Available [facility] 4 11:14:32 Pain of right knee joint 824860805183 100 Active 2023 Monroe Long MD [facility] [address], [place], [address] , [facility] 4 14:26:49 Fracture of clavicle 71371883 Active 2023 Santo Case MD [address], [place], [address] , [facility] 4 11:24:41 Arthritis of acromiocl avicular joint 465360273 Active 2023 Santo Case MD [address], [place], [address] , [facility] 4 11:24:41 Clavicle pain 927922853 Active 2023 Santo Case MD [address], [place], [address] , [facility] 4 11:24:41 Impingeme nt syndrome of left shoulder region 493922346291 104 Active 2024 Esteban Echevarria DPT [address], [place], [address] , [facility] 5 13:48:32 Tear of medial meniscus of knee 964329975 Active 2024 Neena Quezada PA-C [address], [place], [address] , [facility] 5 14:27:52 Mass of knee joint 836136612 Active 2024 Neena Quezada PA-C [address], [place], [address] , [facility] 5 14:27:57 Problem Notes None recorded. Procedures Surgical History Date Name Laterality Status Provider Name and Address Organization Details Recorded Time 5 29319 Therapeutic Exercise (1:1) cancelled Esteban Echevarria DPT [address], [place], [address], [facility] 08/27/2024 08:08:59 5 06774: Hot or Cold Pack cancelled Esteban Echevarria, DPT [address], [place], [address], [facility] 08/27/2024 08:08:59 5 56950: Manual therapy cancelled Esteban Echevarria, DPT [address], [place], [address], [facility] 08/27/2024 08:08:59 5 25725 Therapeutic Exercise (1:1) completed Des Brand, PROBATE JUDGE [address], [place], [address], [facility] 08/25/2024 11:29:22 5 67445: Hot or Cold Pack completed Des Brand, PROBATE JUDGE [address], [place], [address], [facility] 08/22/2024 09:54:07 5 83781: Manual therapy completed Des Brand, PROBATE JUDGE [address], [place], [address], [facility] 08/25/2024 11:29:27 5 11112 Therapeutic Exercise (1:1) completed Des Brand, PROBATE JUDGE [address], [place], [address], [facility] 08/21/2024 09:57:49 5 38926: Hot or Cold Pack completed Des Brand, PROBATE JUDGE [address], [place], [address], [facility] 08/20/2024 10:53:25 5 48601 Therapeutic Exercise (1:1) completed Des Brand, PROBATE JUDGE [address], [place], [address], [facility] 08/19/2024 09:48:55 5 40898: Hot or Cold Pack completed Lincolna Sunday, PROBATE JUDGE [address], [place], [address], [facility] 08/19/2024 08:30:47 5 92815 Therapeutic Exercise (1:1) completed Des Brand, PROBATE JUDGE [address], [place], [address], [facility] 08/14/2024 10:06:53 5 01389: Hot or Cold Pack completed Des Brand, PROBATE JUDGE [address], [place], [address], [facility] 08/14/2024 10:06:38 5 71824: Manual therapy completed Des Brand PROBATE JUDGE [address], [place], [address], [facility] 08/14/2024 10:06:28 5 35363 Therapeutic Exercise (1:1) completed Des Brand PROBATE JUDGE [address], [place], [address], [facility] 08/12/2024 10:11:51 5 68815 Therapeutic Exercise (1:1) completed Des Brand PROBATE JUDGE [address], [place], [address], [facility] 07/23/2024 15:20:12 5 28246: Hot or Cold Pack completed Des Brand PROBATE JUDGE [address], [place], [address], [facility] 07/23/2024 11:13:28 5 99692 Therapeutic Exercise (1:1) completed Des Brand PROBATE JUDGE [address], [place], [address], [facility] 07/21/2024 11:11:32 5 53545: Hot or Cold Pack completed Des Brand PROBATE JUDGE [address], [place], [address], [facility] 07/21/2024 11:11:32 5 46125 Therapeutic Exercise (1:1) completed Des Brand PTA [address] [facility], [place], [address], [facility] 07/15/2024 13:25:22 5 19056: Hot or Cold Pack completed Des Brand PTA [address], [place], [address], [facility] 07/16/2024 11:42:19 5 45489 Therapeutic Exercise (1:1) completed Esteban Echevarria DPT [address] [facility], [place], [address], [facility] 07/14/2024 10:27:36 5 60405: Hot or Cold Pack completed Esteban Echevarria DPT [address] [facility], [place], [address], [facility] 07/14/2024 10:27:46 5 45826: Manual therapy completed Esteban Echevarria DPT [address] [facility], [place], [address], [facility] 07/14/2024 10:27:41 5 00939 Therapeutic Exercise (1:1) completed Esteban Echevarria DPT [address] [facility], [place], [address], [facility] 07/08/2024 13:35:42 5 46882: Low complexity PT Eval completed Esteban Echevarria DPT [address] [facility], [place], [address], [facility] 07/08/2024 13:35:34 4 Sports Shoulder 4&1 completed Santo Case MD [address], [place], [address], [facility] 04/09/2024 10:20:20 Imaging Results None recorded. Procedure Notes None recorded. Medical Equipment None Reported. Allergies Allergen ID Allergen Name Allergen Category Reaction Reaction Severity Criticality Documentation Date Start Date Code Code System Note Provider Name and Address Organization Details Recorded Time 868254 sulfameth oxazole / trimethop rim medicatio n Not available Not available Not available 04/20/20252021 33714 RxNorm Unkno wn Not Available irving - External Data Service - prod 5 08:14:32 76144 Bactrim medicatio n Not available Not available Not available 08/06/20232017 55794 9 RxNorm Not Available [facility] 14:33:28 Medications Name Sig Start Date Stop [...] Updated DateTime 04/16/2025 177.8 cm 27.3 kg/m2 06318.55 g LUCIO DOLAN [place] - [facility] 04/16/2025 15:14:54 Social History None recorded. Functional Status Question Answer Note LastModified by Organizat ion Details LastModified Time How many times per week do you consume alcohol? Less than 1 time per week [email or web address] Information not available 10/03/2024 What is your level of alcohol consumption? Occasional [email or web address] Information not available 10/03/2024 Mental Status None recorded. Family History Nothing Reported. Medical History Condition Response Allergies/Hayfever Y Coronary Artery Disease N Anxiety/Depression N Breathing or lung disorders Y Emphysema N Nerve Disorders N Thyroid Problems N COPD N Pacemaker N Anemia N Kidney/Bladder Problems N Vascular Disease N Heart Trouble N Heart Attack (CA) N Gastrointestinal Disease N Cholesterol N Diabetes N Autoimmune disease N Bleeding Disorder N Inflammatory Joint disease N Orthotics N Arthritis Y Seizures/Epilepsy N Blood Clot N AIDS/HIV N Congestive Heart Failure (CHF) N Acid Reflux (GERD) Y Cancer N Stroke N Asthma N Circulation Problems N Peripheral Vascular Disease N Sleep Apnea N Hepatitis N Heart Disease N Rheumatoid Arthritis N Arrhythmia N Pulmonary Embolism N Headaches N Fibromyalgia N Hypertension N Osteoporosis N Past Encounters Encounter ID Performer Location Encounter Start Date Encounter Closed Date Diagnosis/Indication Diagnosis SNOMED-CT Code Diagnosis ICD10 Code Diagnosis IMO Codes Diagnosis Note [id number] [facility] [address] [place] [address] 04/16/2025 15:09:13 04/20/2025 07:37:17 Pain of hip region 91761154 M25.552 [id number] Health Concerns Section Related Observation LastModified by Organization Detai ls LastModified Time None Recorded Concern Status LastModified by Organization Details LastModified Time None Recorded Payers Encounter Date Sequence Insurance Name Policy Number Policy Christiansen Covered Member ID Christiansen Member ID Guarantor Name 04/16/2025 1 [facility] HEALTH NET PLAN (MEDICAID HMO) JOLIE Amaro [id number] Chi Amaro Notes Date Note Type Note Provider Name and Address Organization Details Recorded Time 04/16/2025 text/html I am seeing the patient [...] Has difficulty lying on his side at night.PMH/PSH/MEDS/ ALL/FMH/SOC HX/ROS are reviewed in detail per my medical intake sheet. General Exam: Vital signs are as noted belowMental status: Alert and lucid. Normal insight, affect and grooming.SEQUINS WINDER: Gross motor coordination is intact. No spasticity or clonus noted.Extremities:C ivy are soft non tender, skin intact.Orthopedic Examination:Patient [...] and Tylenol. Call with any questions or concerns.[employer] speech recognition oxygen therapy teacher software was used to create portions of this document. An attempt at proofreading has been made to minimize errors. Please call for corrections. Hubert Harper PA-C [address], [place], [address], [facility] 04/20/2025 07:37:16
--- OUTSIDE RECORDS SUMMARY | 2025-04-22 16:21 | XMS_ITS | Clinical Summary ---
Author Organization [facility] [address] [place] [address] [place] [phone] Phone Care Team Providers Care Safety Inspector Name Role Phone Unavailable Primary Care Provider [...] LAB CHEMISTRY METHOD 08/26/2024 7:11 PM EDT [facility] Blood Venous blood specimen / Unknown Venipuncture / Unknown 08/26/2024 3:43 PM EDT 08/26/2024 3:43 PM EDT Narrative [facility] - 08/26/2024 7:11 PM [...] ORTIZ LAB BLOOD ORDERABLES Fin al Result [facility] [address] [place] [address], [place] [phone] * Hepatitis panel, acute with reflex to confirmation (08/26/2024 3:43 PM EDT) Pathologist [facility] Hepatitis B Surface Ag Negative Negative LAB CHEMISTRY METHOD 08/26/2024 8:12 PM EDT [facility] Hepatitis A Antibody IgM Negative Negative LAB CHEMISTRY METHOD 08/26/2024 8:12 PM EDT [facility] Hep B Core IgM Negative Negative LAB CHEMISTRY METHOD 08/26/2024 8:12 PM EDT [facility] Hepatitis C Antibody Negative Negative LAB CHEMISTRY METHOD 08/26/2024 8:12 PM EDT [facility] Blood Venous blood specimen / Unknown Venipuncture / Unknown 08/26/2024 3:43 PM EDT 08/26/2024 3:43 PM EDT Darya ORTIZ LAB BLOOD ORDERABLES Fin al Result Performing Organization Address [facility]/ZIP Co de Phone Number [facility] [address] [place] [address], [place] [phone] from Last 3 Months or Most Recently Relevant to Health Maintenance Insurance [facility]
== END 2025-04-22 09:19 | disposition home or self-care (01) ==
PROVIDERS: PCP Physician Assistant; Visit Provider Nurse Practitioner Family
DX: J06.9 Acute upper respiratory infection, unspecified (principal)

== ENCOUNTER 2025-04-22 08:38 | Outpatient (REF) | payer OTHER, SELFPAY ==
[2025-04-22 11:50] LABS: Resp Syncy Virus RNA Qual PCR NEGATIVE (Negative); SARS COV2 PCR INHOUSE NEGATIVE (Negative)
== END 2025-04-22 08:39 | disposition home or self-care (01) ==
LOC: HO.LAB 08:38
PROVIDERS: PCP Physician Assistant; Visit Provider Nurse Practitioner Family
DX: R05.9 Cough, unspecified (principal); J02.9 Acute pharyngitis, unspecified; R09.82 Postnasal drip; R09.89 Other specified symptoms and signs involving the circulatory and respiratory systems; Z87.891 Personal history of nicotine dependence
CPT/HCPCS: 87637; 99212

== ENCOUNTER 2025-05-15 08:44 | Outpatient (AMB) | payer OTHER, SELFPAY ==
[2025-05-15 09:13] VITALS: BP 112/80; PULSE 78; O2SAT 98; BMI 28.6
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
== END 2025-05-15 10:23 | disposition home or self-care (01) ==
PROVIDERS: PCP Physician Assistant; Visit Provider Physician Assistant
DX: M77.8 Other enthesopathies, not elsewhere classified (principal)

== ENCOUNTER 2025-05-15 08:44 | Outpatient (REF) | payer OTHER, SELFPAY ==
--- NOTE | ~2025-05-15 | XR_ITS ---
EXAMINATION: XR HAND, RIGHT CLINICAL INFORMATION: M79.644 - Pain in right finger(s) COMPARISON: None available. TECHNIQUE: PA, lateral, and oblique views of the right hand. FINDINGS: The metacarpal bones are intact. Phalanges are intact with normal alignment. No bony erosions. No soft tissue calcifications. No metallic or radiopaque foreign body. No subcutaneous emphysema. The carpal bones are intact. Distal radius and ulna are intact. XR/XR hand RT min 3V IMPRESSION: Normal x-ray right hand. Electronically signed by: León Brandt MD 05/15/2025 10:07 AM KOBE
== END 2025-05-15 08:45 | disposition home or self-care (01) ==
LOC: HO.HMGCX 08:44
PROVIDERS: PCP Physician Assistant; Visit Provider Physician Assistant
DX: M77.8 Other enthesopathies, not elsewhere classified (principal)
CPT/HCPCS: 73130; 99212

== ENCOUNTER → 2025-05-15 09:52 | Outpatient (BNV) | payer OTHER, SELFPAY | PROVIDERS: PCP Physician Assistant; Visit Provider Radiology Diagnostic Radiology | DX: M79.644 Pain in right finger(s) (principal) | CPT/HCPCS: 73130 ==

== ENCOUNTER 2025-05-20 10:52 | Outpatient (AMB) | payer OTHER, SELFPAY ==
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
[2025-05-20 11:00] VITALS: BP 116/78; PULSE 64; RESP 18; TEMP 37.4; O2SAT 97; BMI 28.2
--- OUTSIDE RECORDS SUMMARY | 2025-05-20 14:12 | XMS_ITS | Clinical Summary ---
Author Organization [facility] [address] [place] [address] [place] [phone] Phone Care Team Providers Care Assistant [employer] Public [employer] Name Role Phone Unavailable Primary Care Provider [...] on file Sexual Orientation Not on file Last Filed Vital Signs Vital Sign Reading [...] ORDERABLES Fin al Result Performing Organization Address [facility]/ZIP Co de Phone Number [facility] [address] [place] [address], [place] [phone] * Hepatitis panel, acute with reflex to confirmation (08/26/2024 3:43 PM EDT) Pathologist [facility] [place] Hepatitis B Surface Ag Negative Negative LAB [...] PM EDT 08/26/2024 3:43 PM EDT Darya Patti Meraz [place] LAB BLOOD ORDERABLES Fin al Result Performing Organization Address [facility]/ZIP Co de Phone Number [facility] [address] [place] [address], [place] [phone] from Last 3 Months or Most Recently Relevant to Health Maintenance Insurance [facility] [employer]
--- OUTSIDE RECORDS SUMMARY | 2025-05-20 14:12 | XMS_ITS | Data Portability ---
Author Organization [facility], [facility] Address [address] [place] [address] Care Team Providers Care Escrow Closer Name Role Phone [facility] Care Provider Assessment Encounter Date Assessment Date Assessment LastModified by Organization Details LastModified Time 08/19/2024 08/19/2024 Assessment: Pt doing very well throughout his course of treatment. Able to complete all strength phase exercises with appropriate fatigue. Plan: Continued POC [email or web address] Not available 08/19/2024 09:41:42 08/21/2024 08/21/2024 Assessment: Pt doing very well throughout his course of treatment. Able to complete all strength phase exercises with appropriate fatigue. Plan: Continued POC [email or web address] Not available 08/20/2024 10:53:25 08/25/2024 08/25/2024 Assessment: At this time the patient is able to actively elevate overhead without challenges. Functionally he is performing all adl's without difficulties or challenges. No increased pain throughout the rx. Plan: D/c next visit [email or web address] Not available 08/25/2024 11:38:12 Plan of Treatment Reminders Order Date Submit Date Provider Last Modified By Organization Details Last Modified Time Details Appointments RECHECK 15 2024 09:00A M José Manuel butler PA-C Not available Not available Not available Lab None recorded . Referral None recorded . Procedures None recorded . Surgeries None recorded . Imaging XR, hip + pelvis, unilater al, 2 or 3 view - rm 216 2V left hip pain 2024 025 [email or web address] [facility], [address], [address], [place], [address], 04/16/2025 16:48:10 XR, knee, 3 view - room 217 right knee 2024 025 [email or web address] [facility], [address], [address], [place], [address], 12/08/2024 09:23:29 Medication Orders None recorded . Patient TargetsNo targets recorded. Patient InstructionsNo instructions recorded. Reason for Referral None Reported. Results Created Date Observation Date Name Description Value Unit Range Abnormal Flag Note LastModifiedBy Organization Detail LastModifiedTime 12/05/1912/04/2024 XR, knee, 3 view http:/ [email or web address] ?Encry pted=s hAaTro YD8dLq bEUv6g %2BXZw aYqtaq 0bqfl% 2Fg9IQ a4ajBk vP9nXo QUaueC m3YtLR FvZlgJ JJ8mAn HZtai3 8f1454 AC0Kla X6EVae vKiQtr MwF INTERFACE [facility] [address], [place], [address], 12/04/2024 14:11:19 12/05/19 25 12/04/2024 XR, knee, 3 view http:/ [email or web address] ?Encry pted=s hAaTro YD8dLq bEUv6g %2BXZw aYqtaq 0bqfl% 2Fg9IQ a4ajBk vP9nXo QUaueC m3YtLR FvZlgJ JJ8mAn HZtai3 0b6380 AC0Kla X6EVae vKiQtr MwF INTERFACE [facility] [address], [place], [address], 12/04/2024 14:11:21 04/16/20 25 04/16/2025 XR, hip + pelvi s, unila teral , 2 or 3 view http:/ [email or web address] ?Encry pted=s hAaTro YD8dLq bEUv6g %2BXZw aYqtaq 0bqfl% 2Fg9IQ a4ajBk vP9nXo QUaueC m3YtLR FvZlgJ JJ8mAn HZtai3 3r0402 AC0KlY 36HVaq nKiQtr MwF INTERFACE [facility] [address], [place], [address], 04/16/2025 15:22:53 04/16/20 25 04/16/2025 XR, hip + pelvi s, unila teral , 2 or 3 view http:/ [email or web address] ?Encry pted=s DamienaTro YD8dLq bEUv6g %2BXZw aYqtaq 0bqfl% 2Fg9IQ a4ajBk vP9nXo QUaueC m3YtLR FvZlgJ JJ8mAn HZtai3 5t6702 AC0KlY 36HVaq nKiQtr MwF INTERFACE [facility] [address] [facility] [address], [place], [address], 04/16/2025 15:22:55 Result Notes Documentation Provider Name and Address Organization Details Recorded Time Xr, Knee, 3 View : [email or web address]? Encrypted=vcQpCovYH4qHznD Uv6g%2RCKiiIsiac3jvcg%2Fg 3LMk9yvJpqI7nZhYHjmyMb9Gv CEVsOnxQGT3tXuXSgfl77c783 3PB6KmcX6FAtlpDrMmlKfO Not Available [facility] 12/04/2024 14:11: 20 Xr, Knee, 3 View : [email or web address]? Encrypted=hoAnWzcPP6nStkX Uv6g%3PHLsjOwxjk3psyq%2Fg 9FEy2fdBgaJ3qNxBYeekZu7Pl RHCxUlzCCH0sFgLPodv40v974 0JF5NzhA1SSzumIqTaxXtV Not Available [facility] 12/04/2024 14:11: 22 Xr, Hip + Pelvis, Unilateral, 2 Or 3 View : [email or web address]? Encrypted=aiIrJqhWX8oPgsX Uv6g%6KXUcwFkrwt2oyft%2Fg 9BKc2vdUzdA0iMeNSyzgQu5Go VKImWdoJIA4cTfQChxb58q835 5VV5JhF10MJsbuIaJlbTtX Not Available [facility] 04/16/2025 15:22: 54 Xr, Hip + Pelvis, Unilateral, 2 Or 3 View : [email or web address]? Encrypted=yiTkTbqUZ9pXqtF Uv6g%1TXOhrDsmxw3yehq%2Fg 1FSk6arBhoQ8uEdYQlshLo7Qf IGXgUddYII8dNeOPvoj52b949 0WL6OyD66SFyltQhGapXeX Not Available [facility] 04/16/2025 15:22: 56 Problems Name Problem SNOMED Code Status Onset Date Resolution Date Notes Provider Name and Address Organization Details Recorded Time No complaint s 803281045 Active Status: 'I'; Not Available [facility] 4 09:16:31 Closed fracture of shaft of right clavicle 933805214882 Active 2017 Problem Code: S42.021A ; Problem Code Type: ICD-10; Status: 'A'; Not Available [facility] 4 11:14:31 Fracture of clavicle 94464298 Active 2017 Problem Code: S42.001D ; Problem Code Type: ICD-10; Status: 'A'; Not Available [facility] 4 11:14:31 Closed fracture of right clavicle 997220509130 Active 2017 Problem Code: S42.001A ; Problem Code Type: ICD-10; Status: 'A'; Not Available [facility] 4 11:14:32 Contusion of left thumb 393229058878 66997 Active 2018 Problem Code: S60.012A ; Problem Code Type: ICD-10; Status: 'A'; Not Available [facility] 4 11:14:31 Closed fracture of acromial end of right clavicle 553875865866 52765 Active 2019 Problem Code: S42.034A ; Problem Code Type: ICD-10; Status: 'A'; Not Available [facility] 4 11:14:32 Removal of internal fixation device Active 2019 Problem Code: Z47.2; Problem Code Type: ICD-10; Status: 'A'; Not Available [facility] 4 11:14:31 Fracture of acromial end of clavicle 16038334 Active 2019 Problem Code: S42.034D ; Problem Code Type: ICD-10; Status: 'A'; Not Available [facility] 4 11:14:31 Fracture of shaft of clavicle 30094447 Active 2019 Problem Code: S42.021D ; Problem Code Type: ICD-10; Status: 'A'; Not Available [facility] 4 11:14:32 Pain of right knee joint 696809956765 100 Active 2023 Monroe Long MD [address], [place], [address] , [facility] 4 14:26:49 Fracture of clavicle 37171174 Active 2023 Santo Case MD [address], [place], [address] , [facility] 4 11:24:41 Arthritis of acromiocl avicular joint 741235172 Active 2023 Santo Case MD [address], [place], [address] , [facility] 4 11:24:41 Clavicle pain 742588079 Active 2023 Santo Case MD [address], [place], [address] , [facility] 4 11:24:41 Impingeme nt syndrome of left shoulder region 430995487475 104 Active 2024 Esteban Echevarria DPT [address], [place], [address] , [facility] 5 13:48:32 Tear of medial meniscus of knee 493383434 Active 2024 Neena Quezada PA-C [address], [place], [address] , [facility] 5 14:27:52 Mass of knee joint 407476048 Active 2024 Neena Quezada PA-C [address], [place], [address] , [facility] 14:27:57 Problem Notes None recorded. Procedures Surgical History Date Name Laterality Status Provider Name and Address Organization Details Recorded Time 5 25860 Therapeutic Exercise (1:1) cancelled Esteban Echevarria DPT [address], [place], [address], [facility] 08/27/2024 08:08:59 5 06460: Hot or Cold Pack cancelled Esteban Echevarria DPT [address], [place], [address], [facility] 08/27/2024 08:08:59 5 06103: Manual therapy cancelled Esteban Echevarria DPT [address], [place], [address], [facility] 08/27/2024 08:08:59 5 79807 Therapeutic Exercise (1:1) completed Des Brand PTA [address], [place], [address], [facility] 08/25/2024 11:29:22 03/24/202 5 68411: Hot or Cold Pack completed Shadina Sunday, BRICK SORTER [address], [place], [address], [facility] 08/22/2024 09:54:07 5 62323: Manual therapy completed Jonesdina Sunday, BRICK SORTER [address], [place], [address], [facility] 08/25/2024 11:29:27 5 92136 Therapeutic Exercise (1:1) completed Shadina Sunday, BRICK SORTER [address], [place], [address], [facility] 08/21/2024 09:57:49 5 03418: Hot or Cold Pack completed Lincolna Sunday, BRICK SORTER [address], [place], [address], [facility] 08/20/2024 10:53:25 5 76786 Therapeutic Exercise (1:1) completed Lincolna Sunday, BRICK SORTER [address], [place], [address], [facility] 08/19/2024 09:48:55 5 67569: Hot or Cold Pack completed [place]incolna Sunday, BRICK SORTER [address], [place], [address], [facility] 08/19/2024 08:30:47 5 05493 Therapeutic Exercise (1:1) completed Shadina Sunday, BRICK SORTER [address], [place], [address], [facility] 08/14/2024 10:06:53 5 25780: Hot or Cold Pack completed Shadina Sunday, BRICK SORTER [address], [place], [address], [facility] 08/14/2024 10:06:38 5 15308: Manual therapy completed Shadina Sunday, BRICK SORTER [address], [place], [address], [facility] 08/14/2024 10:06:28 5 32261 Therapeutic Exercise (1:1) completed Des Brand, BRICK SORTER [address], [place], [address], [facility] 08/12/2024 10:11:51 5 47392 Therapeutic Exercise (1:1) completed Des Brand, BRICK SORTER [address], [place], [address], [facility] 07/23/2024 15:20:12 5 20155: Hot or Cold Pack completed Des Brand BRICK SORTER [address], [place], [address], [facility] 07/23/2024 11:13:28 5 22189 Therapeutic Exercise (1:1) completed Des Brand, BRICK SORTER [address], [place], [address], [facility] 07/21/2024 11:11:32 5 28075: Hot or Cold Pack completed Des Brand BRICK SORTER [address], [place], [address], [facility] 07/21/2024 11:11:32 5 28111 Therapeutic Exercise (1:1) completed Des Brand, BRICK SORTER [address], [place], [address], [facility] 07/15/2024 13:25:22 5 25196: Hot or Cold Pack completed Des Brand BRICK SORTER [address], [place], [address], [facility] 07/16/2024 11:42:19 5 70267 Therapeutic Exercise (1:1) completed Esteban Echevarria DPT [address], [place], [address], [facility] 07/14/2024 10:27:36 5 04861: Hot or Cold Pack completed Esteban Echevarria DPT [address] [facility], [place], [address], [facility] 07/14/2024 10:27:46 5 42984: Manual therapy completed Esteban Echevarria DPT [address] [facility], [place], [address], [facility] 07/14/2024 10:27:41 5 51228 Therapeutic Exercise (1:1) completed Esteban Echevarria DPT [address] [facility], [place], [address], [facility] 07/08/2024 13:35:42 5 91822: Low complexity PT Eval completed Esteban Echevarria DPT [address] [facility], [place], [address], [facility] 07/08/2024 13:35:34 4 Sports Shoulder 4&1 completed Santo Case MD [address] [facility], [place], [address], [facility] 04/09/2024 10:20:20 Imaging Results None recorded. Procedure Notes None recorded. Medical Equipment None Reported. Allergies Allergen ID Allergen Name Allergen Category Reaction Reaction Severity Criticality Documentation Date Start Date Code Code System Note Provider Name and Address Organization Details Recorded Time 059247 sulfameth oxazole / trimethop rim medicatio n Not available Not available Not available 04/20/20252021 58541 RxNorm Unkno wn Not Available [facility] - External Data [employer] - prod 08:14:32 565972 droperido l medicatio n Not available Not available high 05/07/20252024 3648 RxNorm Abnor mal mouth and tongu e movem ents, restl essne ss and irrit abili ty unrec ogniz ed react ion (text : Dysto nicolas, code: 83041 004) (from [facility]) Not Available [place] - External Data Service - prod 5 15:25:14 00835 Bactrim medicatio n Not available Not available Not available 08/06/20232017 59372 9 RxNorm Not Available [facility] 4 14:33:28 Medications Name Sig Start [...] Not Available Not Available No t Available baclofen 10 mg tablet TAKE 1 TABLET (10 MG) BY MOUTH AT BEDTIME FOR 10 DAYS active Not Available Not [...] TABLET BY MOUTH 1 TIME EACH DAY. active [...] Updated DateTime 12/04/2024 177.8 cm 26.5 kg/m2 13982.59 g Hansa Ramires [facility] 12/04/2024 14:00:40 Date Recorded Body height Body mass index (BMI) Body weight Provider Name and Address Organization Details Last Updated DateTime 04/16/2025 177.8 cm 27.3 kg/m2 68945.55 g HANSA DOLAN [facility] 04/16/2025 15:14:54 Social History None recorded. Functional Status Question Answer Note LastModified by Organizat ion Details LastModified Time How many times per week do you consume alcohol? Less than 1 time per week [email or web address] Information not available 10/03/2024 What is your level of alcohol consumption? Occasional Information not available 10/03/2024 Mental Status None recorded. Family History Nothing Reported. Medical History Condition Response Allergies/Hayfever Y Coronary Artery Disease N Breathing or lung disorders Y Anxiety/Depression N Emphysema N Nerve Disorders N Thyroid Problems N COPD N Pacemaker N Kidney/Bladder Problems N Anemia N Vascular Disease N Heart Trouble N Heart Attack ([place]) N Gastrointestinal Disease N Cholesterol N Diabetes [...] ICD10 Code Diagnosis IMO Codes Diagnosis Note [id number] MD Karri Lanier [address] [place] [address] [place] [address] 08/28/2023 10:22:21 09/19/2023 12:54:58 Closed fracture of right clavicle 7314795351 7048260 S42.001A [id number] MD Karri Clark [address] [facility] [address] [place] [address] 10/08/2023 08:37:28 10/30/2023 17:32:53 Closed fracture of right clavicle 0729695269 7639723 S42.001A Closed fra cture of shaft of left clavicle 4294807841 2494779 S42.022A [id number] MD Karri Clark [address]rd [address] [place] [address] 11/08/2023 09:31:16 12/03/2023 07:39:03 Closed fracture of right clavicle 5565816201 0653650 S42.001A Closed fra cture of shaft of left clavicle 6376584271 3231579 S42.022A [id number] MD Karri Clark [address] [place] [address] 02/01/2024 10:19:37 02/19/2024 11:15:27 Fracture of clavicle 98627871 S42.001D Clavicle pain 379044405 M25.512 Arthritis of acromioclavicular joint 276776751 M13.755 [id number] MD Karely [facility] [address] [place] [address] 04/09/2024 09:47:13 05/08/2024 06:57:05 Arthritis of acromioclavicular joint 320855486 M13.819 Pain of le ft shoulder joint 3223128637 8248812 M25.512 298109 Osteoarthr itis of joint of left shoulder region 3367265512 94241 M19.012 Internal i mpingement of left shoulder 5435653685 621071 M75.42 [id number] SANDER [facility] [address] [place] [address] 07/04/2024 13:01:06 07/14/2024 12:06:56 Impingement syndrome of left shoulder region 6060444363 66916 M75.42 00211218 [id number] MARCELA Mendoza PT [address] [place] [address] 07/08/2024 13:34:48 07/08/2024 14:01:19 Impingement syndrome of left shoulder region 3435009515 01879 M75.42 30500238 Arthritis of acromioclavicular joint 800239978 M13.950 [id number] MARCELA Mendoza PT [address] [place] [address] 07/14/2024 10:06:55 07/14/2024 10:37:30 Arthritis of acromioclavicular joint 891044086 M13.819 Impingemen t syndrome of left shoulder region 6234594557 78812 M75.42 20632366 [id number] DEEPTHI Espinoza PT [address] [place] [address] 07/16/2024 10:33:01 07/16/2024 11:53:20 Arthritis of acromioclavicular joint 802987673 M13.819 Impingemen t syndrome of left shoulder region 3902042720 42139 M75.42 39529937 [id number] DEEPTHI Espinoza PT [address] [place] [address] 07/21/2024 11:08:48 07/21/2024 12:27:35 Arthritis of acromioclavicular joint 794725703 M13.819 Impingemen t syndrome of left shoulder region 5522926740 41595 M75.42 42837280 [id number] DEEPTHI Espinoza PT [address] [place] [address] 07/23/2024 11:13:13 07/23/2024 15:28:00 Arthritis of acromioclavicular joint 037014345 M13.819 Impingemen t syndrome of left shoulder region 5477955433 02182 M75.42 55232773 [id number] DEEPTHI Espinoza PT [address] [place] [address] 08/12/2024 09:06:46 08/12/2024 10:15:05 Arthritis of acromioclavicular joint 428252754 M13.819 Impingemen t syndrome of left shoulder region 5604634837 69992 M75.42 22853351 [id number] DEEPTHI Espinoza PT [address] [place] [address] 08/14/2024 09:32:43 08/14/2024 10:09:36 Arthritis of acromioclavicular joint 868292347 M13.819 Impingemen t syndrome of left shoulder region 0757218222 79550 M75.42 17594433 [id number] SANDER [facility] [address] [place] [address] 08/14/2024 10:31:06 09/02/2024 07:43:10 Impingement syndrome of left shoulder region 4129447060 47251 M75.42 56400873 [id number] DEEPTHI Espinoza [facility] [address] [place] [address] 08/19/2024 09:04:46 08/19/2024 09:49:41 Arthritis of acromioclavicular joint 859403895 M13.819 Impingemen t syndrome of left shoulder region 1728615521 48735 M75.42 59893267 [id number] DEEPTHI Espinoza [facility] [address] [place] [address] 08/21/2024 09:25:49 08/21/2024 09:58:43 Arthritis of acromioclavicular joint 175037828 M13.819 Impingemen t syndrome of left shoulder region 3925673215 97716 M75.42 50383811 [id number] DEEPTHI Espinoza [facility] [address] [place] [address] 08/25/2024 11:00:23 08/25/2024 11:39:05 Arthritis of acromioclavicular joint 870895135 M13.819 Impingemen t syndrome of left shoulder region 8189829676 66831 M75.42 18841167 [id number] SANDER Arauz 2nd floor [address] [facility] [place] [place] [address] 12/04/2024 13:53:52 12/18/2024 12:23:27 Pain of knee region 6431230665 M25.561 08616190 Tear of me dial meniscus of knee 740026791 S83.241A 3336957 Reviewed patient's imaging and exam findings in [...] as it is. Mass of knee joint 31952 0009 M25.861 367231 [id number] SANDER White [address] [place] [address] 04/16/2025 15:09:13 04/27/2025 15:32:02 Pain of hip region 08062977 M25.552 032506 Health Concerns Section Related Observation LastModified by Organization Detai ls LastModified Time None Recorded Concern Status LastModified by Organization Details LastModified Time None Recorded Advance Directives Directive None Recorded Payers Insurance Date Sequence Insurance Name Policy Number Policy Christiansen Covered Member ID Christiansen Member ID Guarantor Name 04/16/2025 1 [facility] NET PLAN (MEDICAID HMO) LYUDMILAYACO Chi Amaro [id number] Chi Amaro 05/19/2025 1 [facility] HEALTH NET PLAN (MEDICAID HMO) BOSTNACO Chi Amaro [id number] Chi Amaro 04/16/2025 1 [place] [facility] Chi Amaro [id number] Chi Amaro Notes Date Note Type Note Provider Name and Address Organization Details Recorded Time 08/19/2024 text/html Patient reporting his shoulderis feeling sore coming into therapy. Des Brand PTA [address], [place], [address], [facility] 08/19/2024 09:49:30 08/21/2024 text/html Patient reporting 1/10 left shoulder pain coming into therapy. Des Brand PTA [address], [place], [address], [facility] 08/21/2024 09:58:34 08/25/2024 text/html Patient reporting 0/10 left shoulder pain coming into therapy. Des Brand, BRICK SORTER [address], [place], [address], [facility] 08/25/2024 11:38:58 12/04/2024 text/html ROS as noted in the HPI I am seeing the patient under the general supervision of Dr. Mcqueen who was available but who did not see the patient. HPI:Patient is a 34 year old male who presents today with chief complaint of right knee pain. 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 He reports that in the winter [...] see his primary care provider out of [place] who obtained an MRI at [facility]. I do have the MRI results which demonstrate a medial meniscus tear with adjacent parameniscal cyst along the semimembranosus, ruptured Mars's cyst leaking into the calf. He denies any mechanical symptoms including catching, locking or buckling. DIAGNOSTIC IMAGIN view right knee radiographs were ordered, obtained and independently reviewed by myself during today's visit at [facility] and demonstrate well-preserved tricompartmental joint spaces. No fracture or dislocation. Patella tracking centrally in the groove. Impression:Normal right knee films Neena Quezada PA-C [address], [place], [address], [facility] 12/04/2024 14:29:27 04/16/2025 text/html [...] Alert and lucid. Normal insight, affect and grooming.OUTPATIENT PHLEBOTOMIST: Gross motor coordination is intact. No spasticity [...] and Tylenol. Call with any questions or concerns.[facility] speech recognition outside solar sales consultant software was used to create portions of this document. An attempt at proofreading has been made to minimize errors. Please call for corrections. Hubert Harper PA-C [address] [place] [address] [address] [facility], [place], [address], [facility] 04/20/2025 07:37:16
--- OUTSIDE RECORDS SUMMARY | 2025-05-20 14:12 | XMS_ITS | Clinical Summary ---
Author Organization [facility] Address [address] [address] Phone Care Team Providers Care Zipper Setter Chainstitch Name Role Phone Josiah Tinoco MD Primary [...] topic Medical Devices Not on file Insurance [facility] [employer] [facility] With [facility] Member Subscriber Plan / Payer (Ef fective 2018-Present) Name:Chi Amaro Relation to Subscriber:Self Name:Chi Amaro Payer ID:[id number] Group ID:[id number] Type:Medicaid Address: [place] [id number] [facility] [place] [address] [place] [address] [facility] Care Teams Zipper Setter Chainstitch Relationship Specialty Start Date End Date Josiah Tinoco MD [address] [place] [id number] PCP - General 08/04/24 Additional Source Comments The information contained in this document represents components of the legal health record. It is not the complete legal health record.[facility]
--- OUTSIDE RECORDS SUMMARY | 2025-05-20 14:12 | XMS_ITS | Continuity of Care Document ---
Author Organization [facility], [address] Address [address] [place] [address] Care Team Providers Care Critical Care Nurse Specialist Name Role Phone [facility] Care Provider Assessment No assessment recorded. Plan of Treatment Reminders Order Date Submit Date Provider Last Modified By Organization Details Last Modified Time Details Appointments RECHECK 15 2024 09:00A Zara butler PA-C Not available Not available Not available Lab None recorded . Referral None recorded . Procedures None recorded . Surgeries None recorded . Imaging XR, hip + pelvis, unilater al, 2 or 3 view - rm 216 2V left hip pain 2024 025 [email or web address] [facility], [address], [address], [place], [address], 04/16/2025 16:48:10 Medication Orders None recorded . Patient TargetsNo [...] a4ajBk vP9nXo QUaueC m3YtLR FvZlgJ JJ8mAn HZtai3 5n2379 AC0KlY 36HVaq nKiQtr MwF INTERFACE [facility] [address] [facility] [address], [place], [address], 04/16/2025 15:22:53 04/16/20 25 04/16/2025 XR, hip + pelvi s, unila teral , 2 or 3 view http:/ [email or web address] ?Encry pted=s hAaTro YD8dLq bEUv6g %2BXZw aYqtaq 0bqfl% 2Fg9IQ a4ajBk vP9nXo QUaueC m3YtLR FvZlgJ JJ8mAn HZtai3 6g4245 AC0KlY 36HVaq nKiQtr MwF INTERFACE [facility] [address] [facility] [address], [place], [address], 04/16/2025 15:22:55 Result Notes Documentation Provider Name and Address Organization Details Recorded Time Xr, Hip + Pelvis, Unilateral, 2 Or 3 View : [email or web address]? Encrypted=xyTvWnbGO5uYobH Uv6g%0KDRhiSnkuy7nhzk%2Fg 3WHh5rnVobH7uWrBDylfEf5Jd RMKgNexHCM3vTfWTevf41f740 0GX1WiO88RLeteLlAzcYxG Not Available [facility] 04/16/2025 15:22: 54 Xr, Hip + Pelvis, Unilateral, 2 Or 3 View : [email or web address]? Encrypted=owNtRoaOX1vVnjN Uv6g%5ZXUjxNwsvj9fhqr%2Fg 0CLv9eeTlhQ0nPyMUzzfOn0Aw RMPzOsrHHF1cQwMNyuj38h841 1IC6TvQ69WAtiiPmUlaSeV Not Available [facility] 04/16/2025 15:22: 56 Problems Name Problem SNOMED Code Status Onset Date Resolution Date Notes Provider Name and Address Organization Details Recorded Time No complaint s 384805898 Active Status: 'I'; Not Available [facility] 4 09:16:31 Closed fracture of shaft of right clavicle 834213632601 27999 Active 2017 Problem Code: S42.021A ; Problem Code Type: ICD-10; Status: 'A'; Not Available [facility] 4 11:14:31 Fracture of clavicle 84089378 Active 2017 Problem Code: S42.001D ; Problem Code Type: ICD-10; Status: 'A'; [facility] Available [facility] 4 11:14:31 Closed fracture of right clavicle 722589590554 69926 Active 2017 Problem Code: S42.001A ; Problem Code Type: ICD-10; Status: 'A'; Not Available [facility] 4 11:14:32 Contusion of left thumb 853088917016 05896 Active 2018 Problem Code: S60.012A ; Problem Code Type: ICD-10; Status: 'A'; Not Available [facility] 4 11:14:31 Closed fracture of acromial end of right clavicle 074310144981 82043 Active 2019 Problem Code: S42.034A ; Problem Code Type: ICD-10; Status: 'A'; Not Available [facility] 4 11:14:32 Removal of internal fixation device Active 2019 Problem Code: Z47.2; Problem Code Type: ICD-10; Status: 'A'; Not Available [facility] 4 11:14:31 Fracture of acromial end of clavicle 44517742 Active 2019 Problem Code: S42.034D ; Problem Code Type: ICD-10; Status: 'A'; Not Available [facility] 4 11:14:31 Fracture of shaft of clavicle 55996603 Active 2019 Problem Code: S42.021D ; Problem Code Type: ICD-10; Status: 'A'; Not Available [facility] 4 11:14:32 Pain of right knee joint 335997864598 100 Active 2023 Monroe Long MD [address], [place], [address] , [facility] 4 14:26:49 Fracture of clavicle 50877312 Active 2023 Santo Case MD [address], [place], [address] , [facility] 4 11:24:41 Arthritis of acromiocl avicular joint 299310731 Active 2023 Santo Case MD [address], [place], [address] , [facility] 4 11:24:41 Clavicle pain 694644957 Active 2023 Santo Case MD [address], [place], [address] , [facility] 4 11:24:41 Impingeme nt syndrome of left shoulder region 235558066269 104 Active 2024 Esteban Echevarria DPT [address], [place], [address] , [facility] 5 13:48:32 Tear of medial meniscus of knee 693230638 Active 2024 Neena Quezada PA-C [address], [place], [address] , [facility] 5 14:27:52 Mass of knee joint 264966784 Active 2024 Neena Quezada PA-C [address], [place], [address] , [facility] 5 14:27:57 Problem Notes None recorded. Procedures Surgical History Date Name Laterality Status Provider Name and Address Organization Details Recorded Time 5 28667 Therapeutic Exercise (1:1) cancelled Esteban Echevarria DPT [address], [place], [address], [facility] 08/27/2024 08:08:59 5 10020: Hot or Cold Pack cancelled Esteban Echevarria, DPT [address], [place], [address], [facility] 08/27/2024 08:08:59 5 64132: Manual therapy cancelled Esteban Echevarria, DPT [address], [place], [address], [facility] 08/27/2024 08:08:59 5 29636 Therapeutic Exercise (1:1) completed Des Brand EVENT SPECIALIST [address], [place], [address], [facility] 08/25/2024 11:29:22 5 32282: Hot or Cold Pack completed Des Brand, EVENT SPECIALIST [address], [place], [address], [facility] 08/22/2024 09:54:07 5 29875: Manual therapy completed Des Brand EVENT SPECIALIST [address], [place], [address], [facility] 08/25/2024 11:29:27 5 96716 Therapeutic Exercise (1:1) completed Des Brand, EVENT SPECIALIST [address], [place], [address], [facility] 08/21/2024 09:57:49 5 79213: Hot or Cold Pack completed Des Brand, EVENT SPECIALIST [address], [place], [address], [facility] 08/20/2024 10:53:25 5 80707 Therapeutic Exercise (1:1) completed Des Brand, EVENT SPECIALIST [address], [place], [address], [facility] 08/19/2024 09:48:55 5 35846: Hot or Cold Pack completed Lincolna Sunday, EVENT SPECIALIST [address], [place], [address], [facility] 08/19/2024 08:30:47 5 01713 Therapeutic Exercise (1:1) completed Des Brand, EVENT SPECIALIST [address], [place], [address], [facility] 08/14/2024 10:06:53 5 13316: Hot or Cold Pack completed Lincolna Sunday, EVENT SPECIALIST [address], [place], [address], [facility] 08/14/2024 10:06:38 5 50621: Manual therapy completed Des Brand, EVENT SPECIALIST [address], [place], [address], [facility] 08/14/2024 10:06:28 5 15555 Therapeutic Exercise (1:1) completed Des Brand, EVENT SPECIALIST [address], [place], [address], [facility] 08/12/2024 10:11:51 5 23735 Therapeutic Exercise (1:1) completed Des Brand, EVENT SPECIALIST [address], [place], [address], [facility] 07/23/2024 15:20:12 5 02295: Hot or Cold Pack completed Des Brand, EVENT SPECIALIST [address], [place], [address], [facility] 07/23/2024 11:13:28 5 89130 Therapeutic Exercise (1:1) completed Des Brand, EVENT SPECIALIST [address], [place], [address], [facility] 07/21/2024 11:11:32 5 52849: Hot or Cold Pack completed Lincolna Sunday, EVENT SPECIALIST [address], [place], [address], [facility] 07/21/2024 11:11:32 5 55233 Therapeutic Exercise (1:1) completed Des Brand PTA [address], [place], [address], [facility] 07/15/2024 13:25:22 5 35743: Hot or Cold Pack completed Des Brand PTA [address], [place], [address], [facility] 07/16/2024 11:42:19 5 33700 Therapeutic Exercise (1:1) completed Esteban Echevarria DPT [address], [place], [address], [facility] 07/14/2024 10:27:36 5 75258: Hot or Cold Pack completed Esteban Echevarria DPT [address], [place], [address], [facility] 07/14/2024 10:27:46 5 84607: Manual therapy completed Esteban Echevarria DPT [address], [place], [address], [facility] 07/14/2024 10:27:41 5 70139 Therapeutic Exercise (1:1) completed Esteban Echevarria DPT [address], [place], [address], [facility] 07/08/2024 13:35:42 5 83080: Low complexity PT Eval completed Esteban Echevarria DPT [address], [place], [address], [facility] 07/08/2024 13:35:34 4 Sports Shoulder 4&1 completed Santo Case MD [address], [place], [address], [place] - [facility] 04/09/2024 10:20:20 Imaging Results None recorded. Procedure Notes None recorded. Medical Equipment None Reported. Allergies Allergen ID Allergen Name Allergen Category Reaction Reaction Severity Criticality Documentation Date Start Date Code Code System Note Provider Name and Address Organization Details Recorded Time 327726 sulfameth oxazole / trimethop rim medicatio n Not available Not available Not available 04/20/20252021 10750 RxNorm Unkno wn Not Available estelle - External Data Service - prod 5 08:14:32 039786 droperido l medicatio n Not available Not available [facility] 05/07/20252024 3648 RxNorm Abnor mal mouth and tongu e movem ents, restl essne ss and irrit abili ty unrec ogniz ed react ion (text : Dysto nicolas, code: 08718 004) (from exter nal sourc e) Not Available [employer] Data Service - prod 5 15:25:14 08260 Bactrim medicatio n Not available Not available Not available 08/06/20232017 81834 9 RxNorm Not Available [facility] 4 14:33:28 Medications Name Sig Start Date [...] Updated DateTime 04/16/2025 177.8 cm 27.3 kg/m2 16406.55 g LUCIO DOLAN [place] - [facility] 04/16/2025 15:14:54 Social History None recorded. Functional Status Question Answer Note LastModified by Organizat ion Details LastModified Time How many times per week do you consume alcohol? Less than 1 time per week [email or web address] Information not available 10/03/2024 What is your level of alcohol consumption? Occasional [email or web address] Information not available 10/03/2024 Mental Status None recorded. Family History Nothing Reported. Medical History Condition Response Allergies/Hayfever Y Coronary Artery Disease N Breathing or lung disorders Y Anxiety/Depression N Emphysema N Nerve Disorders N Thyroid Problems N COPD N Pacemaker N Kidney/Bladder Problems N Anemia N Vascular Disease N Heart Trouble N Heart Attack ([place]) N Gastrointestinal Disease N Cholesterol N Diabetes [...] ICD10 Code Diagnosis IMO Codes Diagnosis Note [id number] S[address] [place] [address] 04/16/2025 15:09:13 04/27/2025 15:32:02 Pain of hip region 93962286 M25.552 [id number] Health Concerns Section Related Observation LastModified by Organization Page north LastModified Time None Recorded Concern Status LastModified by Organization Details LastModified Time None Recorded Payers Encounter Date Sequence Insurance Name Policy Number Policy Christiansen Covered Member ID Christiansen Member ID Guarantor Name 04/16/2025 1 [facility] HEALTH NET PLAN (MEDICAID HMO) OJLIE Amaro [id number] Chi Amaro Notes Date Note Type Note [...] Alert and lucid. 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 No spasticity [...] and Tylenol. Call with any questions or concerns.[employer] speech recognition catalogue and special products manager software was used to create portions of this document. An attempt at proofreading has been made to minimize errors. Please call for corrections. Hubert Harper PA-C [address] [facility] [address], [place], [address], [facility] - [facility] 04/20/2025 07:37:16
== END 2025-05-20 12:03 | disposition home or self-care (01) ==
LOC: HO.HMCH 10:53
PROVIDERS: PCP Physician Assistant; Visit Provider Internal Medicine
DX: Z00.00 Encounter for general adult medical examination without abnormal findings (principal); M79.646 Pain in unspecified finger(s); F12.90 Cannabis use, unspecified, uncomplicated; Z23 Encounter for immunization

== ENCOUNTER → 2025-05-20 10:52 | Outpatient (BNVA) | payer OTHER, SELFPAY | PROVIDERS: PCP Physician Assistant; Visit Provider Internal Medicine | DX: Z00.00 Encounter for general adult medical examination without abnormal findings (principal); K21.9 Gastro-esophageal reflux disease without esophagitis; R29.6 Repeated falls; M79.641 Pain in right hand; F12.90 Cannabis use, unspecified, uncomplicated; Z23 Encounter for immunization; Z87.891 Personal history of nicotine dependence | CPT/HCPCS: 90471; 90656; 99395 ==

== ENCOUNTER 2025-05-30 09:14 | Outpatient (AMB) | payer OTHER, SELFPAY ==
--- OUTSIDE RECORDS SUMMARY | 2025-05-30 09:17 | XMS_ITS | Clinical Summary ---
Author Organization [facility] [address] [place] [address] [place] [address] Phone Care Team Providers Care Mica Plate Layer Hand Name Role Phone Unavailable Primary Care Provider [...] Fin al Result Performing Organization Address City/[facility]/ZIP Co de Phone Number [facility] [address] [place] [address], [place] [phone] * Hepatitis panel, acute with reflex to confirmation (08/26/2024 3:43 PM EDT) Pathologist [facility] Hepatitis B Surface Ag Negative Negative LAB [...] 08/26/2024 3:43 PM EDT Darya Patti Meraz [place] LAB BLOOD ORDERABLES Fin al Result Performing Organization Address City/[facility]/ZIP Co de Phone Number [facility] [address] [place] [address], [place] [phone] from Last 3 Months or Most Recently Relevant to Health Maintenance Insurance [facility] [facility]
--- OUTSIDE RECORDS SUMMARY | 2025-05-30 09:17 | XMS_ITS | Data Portability ---
Author Organization [facility], [facility] Address [address] [place] [address] Care Team Providers Care [facility]y Division Chief Name Role Phone [facility] Prim rody Care Provider Assessment Encounter Date Assessment Date Assessment LastModified by Organization Details LastModified Time 08/21/2024 08/21/2024 Assessment: Pt doing very well throughout his course of treatment. Able to complete all strength phase exercises with appropriate fatigue. Plan: Continued POC [email or web address] Not available 08/20/2024 10:53:25 08/25/2024 08/25/2024 Assessment: At this time the patient is able to actively elevate overhead without challenges. Functionally he is performing all adl's without difficulties or challenges. No increased pain throughout the rx. Plan: D/c next visit [email or web address] Not available 08/25/2024 11:38:12 Plan of Treatment Reminders Order Date Submit Date Provider Name Organization Details Last Modified By Last Modified Time Details Appointments NEW PATIEN T 15 2025 09:00A M Beverly Hackett PA-C Not available Not available Not available PT ADDI RAINES 2025 02:30P M Esteban Echevarria DPT Not available Not available Not available Lab None record ed. Referral physic al therap ist referr al 2024 09:26: 10 025 José Manuel butler PA-C [facility] [address], [place], [address], [facility] 05/25/2025 08:45:47 Procedures None record ed. Surgeries None record ed. Imaging XR, hip + pelvis , unilat eral, 2 or 3 view 2024 15:15: 09 025 Hubert Harper PA-C [facility] [address], [place], [address], Hubert Harper PA-C 04/16/2025 16:48:10 XR, knee, 3 view 2024 14:01: 35 025 Neena Quezada PA-C [facility] [address], [place], [address], Neena Quezada PA-C 12/08/2024 09:23:29 MedicationOrders None record ed. VaccineOrders None record ed. Patient TargetsNo targets recorded. Patient InstructionsNo instructions recorded. Reason for Referral Physical Therapist Referral for History of arthroscopic procedure on shoulder s/p L shldr AAA SAD DCE w/ Dr. Case 06/2024 rom, stretching and strengthening Referring Physician: José Manuel Schaefer, Orthopedic Surgery, Encounter Date: 05/22/2025 Results Created Date Observation Date Name Description Value Unit Range Abnormal Flag Specimen Type Note LastModifiedBy Organization Detail LastModifiedTime 12/04/2024 12/04/2024 knee 3 view [email or web address]=lnHyCdlYE7dPskCIh5d%8LDQboVfodg2kxpu%3Ry7XAq5 ycLemD3cFfJZnicAd4FxHBKtHaqWQW4gAoPSlpv54k6582MK8XsqQ0OTvswFlHcwZvA Not Available [facility] , [address] , [place] , [address], , 12/04/2024 14:11:20 12/04/2024 12/04/2024 knee 3 view [email or web address]=uxYsJlnVP7kMenOMk3o%5YLNuoIdafu6ywtt%2Qf6DNm8 woCbyO2oCuXIauzSe6OzOYDoLifKHJ2fOkCLmif55a5482FC0WdeS7NMfxqBwXciXeQ Not Available [facility] , [address] , [place] , [address], , 12/04/2024 14:11:22 04/16/2025 04/16/2025 xr hip + pelvi s, unila teral 2 or 3 view, [id number] [email or web address]=bxYkXgzUJ3mOprDGe2u%7TXAyxSvmte8vfwr%3Ao0ZZy9 mdHmlN5qUiYSzexXi0AqHTQcVllUQN8nCsBZwcf61g1074DC4VqG03YQcfjXmZfyIoB Not Available [facility] , [address],[facility] [address] , [place] , [address], [place] , 04/16/2025 15:22:54 04/16/2025 04/16/2025 xr hip + pelvi s, unila teral 2 or 3 view, [address] [email or web address]=vhVfKjnSW0kQiiISq8g%0MBBziWptih7ghej%7La9DFp8 laCpoR2uFlXSwjkKy0EaAMRbBnuPNH2qJwEHkms55l0884PZ5RsL07OOnzqUmEioGaH Not Available [facility] , [address] , [place] , [address], , 04/16/2025 15:22:56 Result Notes Documentation Provider Name and Address Organization Details Recorded Time Xr, Knee, 3 View : [email or web address] Encrypted=qfPwYyiXD6tTdfP Uv6g%9GWTqqMftmq6duev%2Fg 1HYs7ekLwwE5uBrSJbelLp4No TRNkFvpLOT6mRwBEybq07w689 7NS9KhtI3DNfqyXoQqzZwG Not Available [facility] 12/04/2024 14:11: 20 Xr, Knee, 3 View : [email or web address] Encrypted=kmAjBxlAQ9rDiqR Uv6g%8JNWqwCzwpz0zota%2Fg 1OIh7qfTbiT0cHlNSnlaWz9Vp HLLyCliNAD7cZxLNtgt59g580 1RF0YdfP3WYcncBlMktGzU Not Available [facility] 12/04/2024 14:11: 22 Xr, Hip + Pelvis, Unilateral, 2 Or 3 View : [email or web address] Encrypted=jpUsYokFF8rDbiI Uv6g%2VVHfaKoptb6ntmr%2Fg 4DNy1mtGhhX2uPuGCqfmRy6Vb IVNhXipALP1fWaTMsmh30v764 6FX1BfF55QZpmfIlPhuOrA Not Available [facility] 04/16/2025 15:22: 54 Xr, Hip + Pelvis, Unilateral, 2 Or 3 View : [email or web address] Encrypted=hyKuZysLF2xLeuZ Uv6g%8EHLgxUwrsr4yeyo%2Fg 0RSf0teHssE7yByIGyuoJb2Md GMJnYtfOBB2wTpMVtni64m489 8ZJ6QkL78OPmljNoSidEpJ Not Available [facility] 04/16/2025 15:22: 56 Problems Name Problem SNOMED Code Status Onset Date Resolution Date Notes Provider Name and Address Organization Details Recorded Time No complaint s 900118076 Active Status: 'I'; Not Available [facility] 09:16:31 Closed fracture of shaft of right clavicle 578647787015 86530 Active 2017 Problem Code: S42.021A ; Problem Code Type: ICD-10; Status: 'A'; Not Available [facility] 4 11:14:31 Fracture of clavicle 76397493 Active 2017 Problem Code: S42.001D ; Problem Code Type: ICD-10; Status: 'A'; Not Available [facility] 4 11:14:31 Closed fracture of right clavicle 113609755816 Active 2017 Problem Code: S42.001A ; Problem Code Type: ICD-10; Status: 'A'; Not Available [facility] 4 11:14:32 Contusion of left thumb 947409699887 Active 2018 Problem Code: S60.012A ; Problem Code Type: ICD-10; Status: 'A'; Not Available [facility] 4 11:14:31 Closed fracture of acromial end of right clavicle 003812417870 15791 Active 2019 Problem Code: S42.034A ; Problem Code Type: ICD-10; Status: 'A'; Not Available [facility] 4 11:14:32 Removal of internal fixation device Active 2019 Problem Code: Z47.2; Problem Code Type: ICD-10; Status: 'A'; Not Available [facility] 4 11:14:31 Fracture of acromial end of clavicle 87709315 Active 2019 Problem Code: S42.034D ; Problem Code Type: ICD-10; Status: 'A'; Not Available [facility] 4 11:14:31 Fracture of shaft of clavicle 31039272 Active 2019 Problem Code: S42.021D ; Problem Code Type: ICD-10; Status: 'A'; Not Available [facility] 4 11:14:32 Pain of right knee joint 014744693486 100 Active 2023 Monroe Long MD [facility] [address], [place], [address] , [facility] 4 14:26:49 Fracture of clavicle 17715054 Active 2023 Santo Case MD [address], [place], [address] , [facility] 4 11:24:41 Arthritis of acromiocl avicular joint 866942554 Active 2023 Santo Case MD [address], [place], [address] , [facility] 4 11:24:41 Clavicle pain 352495446 Active 2023 Santo Case MD [address], [place], [address] , [facility] 4 11:24:41 Impingeme nt syndrome of left shoulder region 509425015358 104 Active 2024 Esteban Echevarria DPT [address], [place], [address] , [facility] 5 13:48:32 Tear of medial meniscus of knee 391145337 Active 2024 Neena Quezada PA-C [address], [place], [address] , [facility] 5 14:27:52 Mass of knee joint 674701655 Active 2024 Neena Quezada PA-C [address], [place], [address] , [facility] 5 14:27:57 Problem Notes None recorded. Procedures Surgical History Date Name Laterality Status Provider Name and Address Organization Details Recorded Time 5 54219 Therapeutic Exercise (1:1) cancelled Esteban Echevarria DPT [address], [place], [address], [facility] 08/27/2024 08:08:59 5 19717: Hot or Cold Pack cancelled Esteban Echevarria, DPT [address], [place], [address], [facility] 08/27/2024 08:08:59 5 60061: Manual therapy cancelled Esteban Echevarria, DPT [address], [place], [address], [facility] 08/27/2024 08:08:59 5 78518 Therapeutic Exercise (1:1) completed Des Brand, LICENSED SALES ASSISTANT [address], [place], [address], [facility] 08/25/2024 11:29:22 5 33910: Hot or Cold Pack completed Des Brand, LICENSED SALES ASSISTANT [address], [place], [address], [facility] 08/22/2024 09:54:07 5 94258: Manual therapy completed Des Brand, LICENSED SALES ASSISTANT [address], [place], [address], [facility] 08/25/2024 11:29:27 5 78110 Therapeutic Exercise (1:1) completed Des Brand, LICENSED SALES ASSISTANT [address], [place], [address], [facility] 08/21/2024 09:57:49 5 55344: Hot or Cold Pack completed Des Brand, LICENSED SALES ASSISTANT [address], [place], [address], [facility] 08/20/2024 10:53:25 5 51828 Therapeutic Exercise (1:1) completed Des Brand, LICENSED SALES ASSISTANT [address], [place], [address], [facility] 08/19/2024 09:48:55 5 15178: Hot or Cold Pack completed Lincolna Sunday, LICENSED SALES ASSISTANT [address], [place], [address], [facility] 08/19/2024 08:30:47 5 17388 Therapeutic Exercise (1:1) completed Des Brand, LICENSED SALES ASSISTANT [address], [place], [address], [facility] 08/14/2024 10:06:53 5 06951: Hot or Cold Pack completed Des Brand, LICENSED SALES ASSISTANT [address], [place], [address], [facility] 08/14/2024 10:06:38 5 13943: Manual therapy completed Des Brand LICENSED SALES ASSISTANT [address], [place], [address], [facility] 08/14/2024 10:06:28 5 67184 Therapeutic Exercise (1:1) completed Des Brand LICENSED SALES ASSISTANT [address], [place], [address], [facility] 08/12/2024 10:11:51 5 50969 Therapeutic Exercise (1:1) completed Des Brand LICENSED SALES ASSISTANT [address], [place], [address], [facility] 07/23/2024 15:20:12 5 62932: Hot or Cold Pack completed Des Brand LICENSED SALES ASSISTANT [address], [place], [address], [facility] 07/23/2024 11:13:28 5 47254 Therapeutic Exercise (1:1) completed Des Brand LICENSED SALES ASSISTANT [address], [place], [address], [facility] 07/21/2024 11:11:32 5 11708: Hot or Cold Pack completed Des Brand LICENSED SALES ASSISTANT [address], [place], [address], [facility] 07/21/2024 11:11:32 5 25730 Therapeutic Exercise (1:1) completed Des Brand PTA [address] [facility], [place], [address], [facility] 07/15/2024 13:25:22 5 97879: Hot or Cold Pack completed Des Brand PTA [address], [place], [address], [facility] 07/16/2024 11:42:19 5 80601 Therapeutic Exercise (1:1) completed Esteban Echevarria DPT [address] [facility], [place], [address], [facility] 07/14/2024 10:27:36 5 33026: Hot or Cold Pack completed Esteban Echevarria DPT [address] [facility], [place], [address], [facility] 07/14/2024 10:27:46 5 77666: Manual therapy completed Esteban Echevarria DPT [address] [facility], [place], [address], [facility] 07/14/2024 10:27:41 5 71683 Therapeutic Exercise (1:1) completed Esteban Echevarria DPT [address] [facility], [place], [address], [facility] 07/08/2024 13:35:42 5 89884: Low complexity PT Eval completed Esteban Echevarria DPT [address] [facility], [place], [address], [facility] 07/08/2024 13:35:34 4 Sports Shoulder 4&1 completed Santo Case MD [address], [place], [address], [facility] 04/09/2024 10:20:20 Imaging Results Imaging Date Name Status LastModifiedBy Organization Detail LastModifiedTime 12/04/2024 knee 3 view completed Not Available [facility] , [address] , [place] , [address], [place] , 12/04/2024 14:11:20 12/04/2024 knee 3 view completed Not Available [facility] , [address] , [place] , [address], [place] , 12/04/2024 14:11:22 04/16/2025 xr hip + pelvis, unilateral 2 or 3 view, 98190 completed Not Available [facility] , [address] , [place] , [address], [place] , 04/16/2025 15:22:54 04/16/2025 xr hip + pelvis, unilateral 2 or 3 view, 574[address] completed Not Available [facility] , [address] , [place] , [address], [place] , 04/16/2025 15:22:56 Procedure Notes None recorded. Medical Equipment None Reported. Allergies Allergen ID Allergen Name Allergen Category Reaction Reaction Severity Criticality Documentation Date Start Date Code Code System Note Provider Name and Address Organization Details Recorded Time 953954 sulfameth oxazole / trimethop rim medicatio n Not available Not available Not available 04/20/20252021 90405 RxNorm Unkno wn Not Available [facility] External Data [facility] - prod 5 08:14:32 256874 droperido l medicatio n Not available Not available high 05/07/20252024 3648 RxNorm Abnor mal mouth and tongu e movem ents, restl essne ss and irrit abili ty unrec ogniz ed react ion (text : Dysto nicolas, code: 67144 [id number]) (from exter nal sourc e) Not Available [facility] External Data Service - prod 5 15:25:14 30640 Bactrim medicatio n Not available Not available Not available 08/06/20232017 29333 9 RxNorm Not Available [facility] 4 14:33:28 Medications Name Authored On Sig Start Date Stop Date Status Note Indication Fill Status Repeat Number Dispense Quantity LastModified by Organization Details LastModified Time oxyco done HCl-o xycod one-A SA 4 19:03:42 1 -2 Q6 PRN PAIN 08/30 aborted Statu s: 'Disc ontin ued'; Not Available Not availab le 0 Not Available Not Available [facility] 08/06/2023 19:03:42 diclo fenac sodiu m 75 mg table t,del ayed relea se 4 10:23:03 TAKE 1 TABL ET BY MOUT H TWIC E A DAY FOR 14 DAYS 08/27 aborted Not Available Not availab le 0 Not Available AMAN BRAND [facility] 08/28/2023 10:27:55 doxyc yclin e monoh ydrat e 100 mg table t 4 10:23:03 TAKE 1 TABL ET BY MOUT H TWIC E A DAY FOR 7 DAYS 08/27 aborted Not Available Not availab le 0 Not Available AMAN BRAND [facility] 08/28/2023 10:27:58 cyclo benza ravindra 5 mg table t 4 10:23:03 TAKE 1 TABL ET BY JOSE Menezes THRE E TIME S A DAY NEED ED FOR MUSC LE SPAS M 08/27 aborted Not Available Not availab le 0 Not Available AMAN BRAND [facility] 08/28/2023 10:28:00 eryth romyc in 5 mg/gr am (0.5 %) eye ointm ent 4 10:23:03 08/27 aborted Not Available Not availab le 0 Not Available AMAN BRAND [facility] 08/28/2023 10:28:03 Paxlo vid 300 mg (150 mg x 2)-10 0 mg table ts in a dose pack 4 07:13:03 TAKE 2 TABL ETS OF NIRM ATRE LVIR AND 1 TABL ET OF YOU MEJIA R TWIC E JONAH Y X 5 DAYS 07/04 aborted Not Available Not availab le 0 Not Available Janel Lopez [place] - [facility] 07/04/2024 13:05:43 amoxi cilli n 500 mg capsu le 5 05:57:45 TAKE 1 CAPS ULE EVER Y 6 HRS UNTI L GONE active Not Available Not availab le 0 Not Available Not Available [facility] 07/29/2024 05:57:45 napro xen 500 mg table t 5 05:57:45 TAKE 1 TABL ET BY MOUT H EVER Y 12 HOUR S NEED ED FOR PAIN active Not Available Not availab le 0 Not Available Not Available [facility] 07/29/2024 05:57:45 mayra us sulfa te 325 mg (65 mg iron) table t,del aymoriah relea se 5 22:09:42 active Not Available Not availab le 0 Not Available Not Available [facility] 08/20/2024 22:09:42 folic acid 1 mg table t 5 22:09:42 active Not Available Not availab le 0 Not Available Not Available [facility] 08/20/2024 22:09:42 clotr imazo le 1 % topic al cream 5 21:57:20 APPL Y TO AFFE CTED AREA TWIC E A DAY active Not Available Not availab le 0 Not Available Not Available [facility] External Data [facility] - prod 10/07/2024 21:57:20 ondan setro n HCl 4 mg table t 5 11:03:23 TAKE 1 TABL ET BY MOUT H EVER Y 8 HOUR S NEED ED FOR NAUS EA AND VOMI TING active Not Available Not availab le 0 Not Available Not Available [facility] - External Data Service - prod 11/02/2024 11:03:23 ondan setro n 4 mg disin tegra ting table t 5 15:57:51 TAKE 1 TABL ET BY MOUT H EVER Y 8 HOUR S NEED ED FOR NAUS EA AND VOMI TING FOR 10 DAYS active Not Available Not availab le 0 Not Available Not Available [facility] External Data [facility] - prod 04/13/2025 15:57:51 aceta minop hen 500 mg table t 15:57:52 TAKE 1 TABL ET BY MOUT H EVER Y 6 HOUR S NEED ED FOR PAIN active Not Available Not availab le 0 Not Available Not Available [facility] External Data Service - prod 04/13/2025 15:57:52 amoxi cilli n 875 mg-po tassi um clavu lanat e 125 mg table t 15:57:52 TAKE 1 TABL ET BY MOUT H TWIC E A DAY FOR 5 DAYS 04/13 aborted Not Available Not availab le 0 Not Available Not Available [facility] - External Data Service - prod 04/13/2025 15:57:52 clotr imazo le-be tamet hason e 1 %-0.0 5 % topic al cream 15:57:52 APPL Y TOPI CALL Y 2 TIME S A DAY FOR 2 WEEK S active Not Available Not availab le 0 Not Available Not Available [facility] External Data [facility] - prod 04/13/2025 15:57:52 cyclo benza ravindra 10 mg table t 15:57:52 TAKE 1 TABL ET BY MOUT H AT BEDT FRANCIA active Not Available Not availab le 0 Not Available Not Available [facility] External Data Service - prod 04/13/2025 15:57:52 gabap entin 100 mg capsu le 15:57:52 TAKE 2 CAPS ULES BY MOUT H 3 TIME S A DAY active Not Available Not availab le 0 Not Available Not Available [facility] External Data [facility] - prod 04/13/2025 15:57:52 ibupr ofen 800 mg table t 15:57:52 TAKE 1 TABL ET BY MOUT H EVER Y 8 HOUR S active Not Available Not availab le 0 Not Available Not Available [facility] External Data Service - prod 04/13/2025 15:57:52 oxyco done 5 mg table t 15:57:52 TAKE 1 TABL ET BY MOUT H EVER Y 6 HOUR S NEED ED FOR PAIN active Not Available Not availab le 0 Not Available Not Available [facility] External Data [facility] - prod 04/13/2025 15:57:52 predn isone 20 mg table t 15:57:52 TAKE 2 TABL ETS BY MOUT H ONCE JONAH Y active Not Available Not availab le 0 Not Available Not Available [facility] - External Data Service - prod 04/13/2025 15:57:52 baclo fen 10 mg table t 12:38:17 TAKE 1 TABL ET (10 MG) BY MOUT H AT BEDT FRANCIA FOR 10 DAYS active Not Available Not availab le 0 Not Available Not Available [facility] External Data Service - prod 05/05/2025 12:38:17 lorat adine 10 mg table t 12:38:17 TAKE 1 TABL ET BY MOUT H 1 TIME EACH DAY. active Not Available Not availab le 0 Not Available Not Available [facility] External Data Service - prod 05/05/2025 12:38:17 omepr azole 20 mg capsu le,de layed relea se 21:55:29 TAKE 1 CAPS ULE BY MOUT H EVER Y DAY FOR 90 DAYS active Not Available Not availab le 0 Not Available Not Available [facility] [employer] [facility] External Data Service - prod 05/21/2025 21:55:29 Vitals Date Recorded Body height Body mass index (BMI) Body weight Provider Name and Address Organization Details Last Updated DateTime 12/04/2024 177.8 cm 26.5 kg/m2 63715.59 g Hansa Ramires [facility] 12/04/2024 14:00:40 Date Recorded Body height Body mass index (BMI) Body weight Provider Name and Address Organization Details Last Updated DateTime 04/16/2025 177.8 cm 27.3 kg/m2 20610.55 g HANSA DOLAN [place] - [facility] 04/16/2025 15:14:54 Date Recorded Body height Body mass index (BMI) Body weight Provider Name and Address Organization Details Last Updated DateTime 05/22/2025 177.8 cm 27.3 kg/m2 77473.55 g Janel Lopez [facility] 05/22/2025 09:05:37 Social History Question Answer Notes LastModified by Organizat ion Details LastModified Time Tobacco Smoking Status [facility] 10/03/2024 10:08:50 What Is Your Level Of Alcohol Consumption? [facility] 10/03/2024 10:08:50 Social History Observation Description Date Observed Sex Unknown 05/08/2025 Legal Sex Male Status Not (finding) 05/30/20 25 No social history survey screeners recorded No social history SDOH screeners recorded Functional Status Question Answer Note LastModified by Organizat ion Details LastModified Time What is your level of alcohol consumption? Occasional [facility] 10/03/2024 10:08:50 How many times per week do you consume alcohol? Less than 1 time per week [facility] 10/03/2024 10:08:50 Date Assessment Value LastModified by Organizat ion Details LastModified Time 07/08/2024 DASH Outcome Measure 62 Esteban Echevarria DPT [facility] 07/08/2024 14:01:00 No Functional SDOH screeners recorded Mental Status None recorded. No Mental Screening assessment recorded No Mental SDOH screeners recorded Family History Nothing Reported. Medical History Condition Response Allergies/Hayfever Y Coronary Artery Disease N Anxiety/Depression N Breathing or lung disorders Y Emphysema N Nerve Disorders N Thyroid Problems N COPD N Pacemaker N Anemia N Kidney/Bladder Problems N Vascular Disease N Heart Trouble N Gastrointestinal Disease N Heart Attack ([place]) N Cholesterol N Diabetes N Autoimmune disease [...] ICD10 Code Diagnosis IMO Codes Diagnosis Note [id number] MD [facility] [address] [place] [address] 08/28/2023 10:22:21 09/19/2023 12:54:58 Closed fracture of right clavicle [id number] S42.001A [id number] Mulugeta Champagne MD [facility] [address] [place] [address] 10/08/2023 08:37:28 10/30/2023 17:32:53 Closed fracture of right clavicle [id number] S42.001A Closed fra cture of shaft of left clavicle [id number] 7562627 S42.022A [id number] [facility] 3[facility] [address] [place] [address] 11/08/2023 09:31:16 12/03/2023 07:39:03 Closed fracture of right clavicle [id number] 1963549 S42.001A Closed fra cture of shaft of left clavicle [id number] 8376271 S42.022A [id number] Mulugeta Champagne MD [facility] 3rd [facility] [address] [place] [address] 02/01/2024 10:19:37 02/19/2024 11:15:27 Fracture of clavicle 70660172 S42.001D Clavicle pain 004961368 M25.512 Arthritis of acromioclavicular joint 394806274 M13.829 [id number] MD [facility] [address] [place] [address] 04/09/2024 09:47:13 05/08/2024 06:57:05 Arthritis of acromioclavicular joint 401712401 M13.819 Pain of le ft shoulder joint 7492663522 4772770 M25.512 [id number] Osteoarthr itis of joint of left shoulder region 8506338050 02705 M19.012 Internal i mpingement of left shoulder 2882785361 291465 M75.42 [id number] SANDER [facility] [address] [place] [address] 07/04/2024 13:01:06 07/14/2024 12:06:56 Impingement syndrome of left shoulder region 4544846542 25011 M75.42 [id number] [id number] Esteban Echevarria DPT [facility] [address] [place] [address] 07/08/2024 13:34:48 07/08/2024 14:01:19 Impingement syndrome of left shoulder region 0445944684 84508 M75.42 [id number] Arthritis of acromioclavicular joint 014256361 M13.595 [id number] Esteban Echevarria DPT [facility] [address] [place] [address] 07/14/2024 10:06:55 07/14/2024 10:37:30 Arthritis of acromioclavicular joint 956619342 M13.819 Impingemen t syndrome of left shoulder region 4207265388 44623 M75.42 75775550 [id number] DEEPTHI Espinoza[facility] [address] [place] [address] 07/16/2024 10:33:01 07/16/2024 11:53:20 Arthritis of acromioclavicular joint 746012115 M13.819 Impingemen t syndrome of left shoulder region 6015459163 53221 M75.42 25431026 [id number] Des Brand PTA [facility] [address] [place] [address] 07/21/2024 11:08:48 07/21/2024 12:27:35 Arthritis of acromioclavicular joint 225269423 M13.819 Impingemen t syndrome of left shoulder region 6429090639 11124 M75.42 99622543 [id number] Des Brand PTA [facility] [address] [place] [address] 07/23/2024 11:13:13 07/23/2024 15:28:00 Arthritis of acromioclavicular joint 184132086 M13.819 Impingemen t syndrome of left shoulder region 5904196409 37624 M75.42 70847047 [id number] Des Brand PTA [facility] [address] [place] [address] 08/12/2024 09:06:46 08/12/2024 10:15:05 Arthritis of acromioclavicular joint 186805832 M13.819 Impingemen t syndrome of left shoulder region 3894891296 66230 M75.42 [id number] Des Brand PTA [facility] [address] [place] [address] 08/14/2024 09:32:43 08/14/2024 10:09:36 Arthritis of acromioclavicular joint 031436683 M13.819 Impingemen t syndrome of left shoulder region 3312150959 90800 M75.42 [id number] [id number] S[facility] [address] [place] [address] 08/14/2024 10:31:06 09/02/2024 07:43:10 Impingement syndrome of left shoulder region 7887512023 10430 M75.42 [id number] [id number] DEEPTHI Espinoza[facility] [address] [place] [address] 08/19/2024 09:04:46 08/19/2024 09:49:41 Arthritis of acromioclavicular joint 891896846 M13.819 Impingemen t syndrome of left shoulder region 7956667170 68406 M75.42 98015615 [id number] Des Brand PTA [facility] [address] [place] [address] 08/21/2024 09:25:49 08/21/2024 09:58:43 Arthritis of acromioclavicular joint 961139856 M13.819 Impingemen t syndrome of left shoulder region 2560117264 75504 M75.42 [id number] [id number] Des Brand PTA [facility] [address] [place] [address] 08/25/2024 11:00:23 08/25/2024 11:39:05 Arthritis of acromioclavicular joint 413867433 M13.819 Impingemen t syndrome of left shoulder region 3893816837 29489 M75.42 13726742 [id number] SANDER Arauz [address]nd [address] [place] [address] 12/04/2024 13:53:52 12/18/2024 12:23:27 Pain of knee region 0176806243 M25.561 [id number] Tear of me dial meniscus of knee 800922882 S83.241A [id number] Reviewed patient's imaging and exam findings in [...] as it is. Mass of knee joint 53813 0009 M25.861 [id number] SANDER White 2nd floor [address] [place] [address] 04/16/2025 15:09:13 04/27/2025 15:32:02 Pain of hip region 53611697 M25.552 899830 [id number] SANDER Martins [facility] [place] [address] 05/22/2025 08:58:03 05/22/2025 09:28:56 History of arthroscopic procedure on shoulder 643469567 Z98.890 [id number] Health Concerns Section Related Observation LastModified by Organization Detai ls LastModified Time None Recorded Concern Status LastModified by Organization Details LastModified Time None Recorded SDOH Concern Status LastModified by Organization Detai ls LastModified Time None Recorded Advance Directives Directive None Recorded Payers Insurance Date Sequence Insurance Name Policy Number Policy Christiansen Covered Member ID Christiansen Member ID Guarantor Name 04/16/2025 1 [facility] [employer] (MEDICAID HMO) WALTER Mireles Claudia Amaro [id number] Chi Claudia Amaro 05/21/2025 1 [facility] NET [employer]AN (MEDICAID HMO) JOLIE Chi Amaro [id number] Chi Amaro 04/16/2025 1 [place] [facility] Chi Amaro [id number] Chi Amaro Notes Date Note Type Note Provider Name and Address Organization Details Recorded Time 08/21/2024 text/html Patient reporting 1/10 left shoulder pain coming into therapy. Des Brand, LICENSED SALES ASSISTANT [address], [place], [address], [facility] 08/21/2024 09:58:34 08/25/2024 text/html Patient reporting 0/10 left shoulder pain coming into therapy. Des Brand LICENSED SALES ASSISTANT [address], [place], [address], [facility] 08/25/2024 11:38:58 12/04/2024 text/html ROS as [...] see his primary care provider out of [place] who obtained an MRI at [facility]. I do have the MRI results which demonstrate a medial meniscus tear with adjacent parameniscal cyst along the semimembranosus, ruptured Mars's cyst leaking into the calf. He denies any mechanical symptoms including catching, locking or buckling. DIAGNOSTIC IMAGIN view right knee radiographs were ordered, obtained and independently reviewed by myself during today's visit at [facility] and demonstrate well-preserved tricompartmental joint spaces. No fracture or dislocation. Patella tracking centrally in the groove. Impression:Normal right knee films Neena Quezada PA-C [address] [facility] [address], [place], [address], [facility] 12/04/2024 14:29:27 04/16/2025 text/html I am seeing [...] Alert and lucid. 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 No spasticity [...] and Tylenol. Call with any questions or concerns.[facility] speech recognition clinical medical transcriptionist software was used to create portions of this document. An attempt at proofreading has been made to minimize errors. Please call for corrections. Hubert Harper PA-C [address], [place], [address], [facility] 04/20/2025 07:37:16 05/22/2025 text/html I am seeing the patient today under the supervision of Dr. Herrera who was available but who did not see the patient.Prasad returns in follow-up left shoulder. Status post SA and has some low-grade discomfort to the shoulder. D DCE by Dr. Case in June of this year. Went on to do well. 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 Full active and passive arc of motion. No discernible pain with range of motion. 5/5 rotator cuff and deltoid integrity. No instability. No crepitus. No tenderness over the AC joint or distal clavicle.Impression: Status post left shoulder arthroscopy, with more recent falls resulting in contusion left shoulderPlan: Reviewed and discussed at length conservative care. Elected to proceed with reviewed course of physical therapy for the left shoulder. Will follow-up with us as needed. José Manuel Schaefer PA-C [address], [place], [address], [facility] 05/22/2025 09:28:55 Care Team Name Role Member ID Specialty Address Phone [facility] Primary Care Provider [id number] [phone] [place] [place], [place]
--- OUTSIDE RECORDS SUMMARY | 2025-05-30 09:17 | XMS_ITS | Continuity of Care Document ---
Author Organization [facility], [place] - [address] floor Address [address] [place] [address] Care Team Providers Care Signal Supervisor Name Role Phone [facility] MEDICAL [facility] Care Provider Assessment No assessment recorded. Plan of Treatment Reminders Order Date Submit Date Provider Name Organization Details Last Modified By Last Modified Time Details Appointments NEW PATIEN T 15 2025 09:00A M Beverly Hackett PA-C Not available Not available Not available PT ADDI RAINES 2025 02:30P M Esteban Echevarria DPT Not available Not available Not available Lab None record ed. Referral None record ed. Procedures None record ed. Surgeries None record ed. Imaging XR, hip + pelvis , unilat eral, 2 or 3 view 2024 15:15: 09 025 [facility] [address], [place], [address], Hubert Harper PA-C 04/16/2025 16:48:10 MedicationOrders None record ed. VaccineOrders None record ed. Patient TargetsNo targets recorded. Patient InstructionsNo instructions recorded. Reason for Referral None Reported. Results Created Date Observation Date Name Description Value Unit Range Abnormal Flag Specimen Type Note LastModifiedBy Organization Detail LastModifiedTime 04/16/2025 04/16/2025 xr hip + pelvis, unilateral 2 or 3 view, 88969 [email or web address]=zxSnAapVT5vSppEKx7u%2FEKscKlung6ypuc%8Zj4QIc0 qxOyiB1uHjXWstwJf1UgSNEdVtrXGE1mZlTTrri00b0538UH1VvQ95TIdudFaPkyJlP Not Available [facility] , [address],[facility] [address] , [place] , [address], , 04/16/2025 15:22:54 04/16/2025 04/16/2025 xr hip + pelvis, unilateral 2 or 3 view, 64013 [email or web address]=ceNxWidAH8iKpiDMv8f%8NQTztTcdmp1lvdg%8Ex3KDd9 fsNffC0aHsMGsypAf9TdQNKeQyhRCU5yEwNAwcc11e3074VQ0DgL60PQlpkJsRhpIrP Not Available [facility] , [address],[facility] [address] , [place] , [address], , 04/16/2025 15:22:56 Result Notes Documentation Provider Name and Address Organization Details Recorded Time Xr, Hip + Pelvis, Unilateral, 2 Or 3 View : [email or web address] Encrypted=yqKjGxgDJ8qNcjZ Uv6g%9PXRuvCnghv1zepa%2Fg 4YBc1exQipR4pIfNYucqVq0Bb DWZdYkrUJW5zBzOSmbp07p151 7HV9NbE01UTmwqAhKxzWmJ Not Available [facility] 04/16/2025 15:22: 54 Xr, Hip + Pelvis, Unilateral, 2 Or 3 View : [email or web address] Encrypted=dwOdHxaWB6vIcfY Uv6g%5FJLncCvoda8rxgu%2Fg 3TJn9fmGzvW7lDqAKrhaJr8Sn JFNfYyhAUV4lBbCLqny42h857 4EC7BaZ40PPddsIcJoeZcJ Not Available [facility] 04/16/2025 15:22: 56 Problems Name Problem SNOMED Code Status Onset Date Resolution Date Notes Provider Name and Address Organization Details Recorded Time No complaint s 273906787 Active Status: 'I'; Not Available [facility] 4 09:16:31 Closed fracture of shaft of right clavicle 495460775336 Active 2017 Problem Code: S42.021A ; Problem Code Type: ICD-10; Status: 'A'; Not Available [facility] 4 11:14:31 Fracture of clavicle 02903094 Active 2017 Problem Code: S42.001D ; Problem Code Type: ICD-10; Status: 'A'; Not Available [facility] 4 11:14:31 Closed fracture of right clavicle 028187640555 Active 2017 Problem Code: S42.001A ; Problem Code Type: ICD-10; Status: 'A'; Not Available [facility] 4 11:14:32 Contusion of left thumb 524406686531 Active 2018 Problem Code: S60.012A ; Problem Code Type: ICD-10; Status: 'A'; Not Available [facility] 4 11:14:31 Closed fracture of acromial end of right clavicle 322007780709 Active 2019 Problem Code: S42.034A ; Problem Code Type: ICD-10; Status: 'A'; Not Available [facility] 4 11:14:32 Removal of internal fixation device Active 2019 Problem Code: Z47.2; Problem Code Type: ICD-10; Status: 'A'; Not Available [facility] 4 11:14:31 Fracture of acromial end of clavicle 42657005 Active 2019 Problem Code: S42.034D ; Problem Code Type: ICD-10; Status: 'A'; Not Available [facility] 4 11:14:31 Fracture of shaft of clavicle 64501386 Active 2019 Problem Code: S42.021D ; Problem Code Type: ICD-10; Status: 'A'; Not Available [facility] 4 11:14:32 Pain of right knee joint 778645646080 100 Active 2023 Monroe Long MD [address], [place], [address] , [facility] 4 14:26:49 Fracture of clavicle 30260957 Active 2023 Santo Case MD [address], [place], [address] , [facility] 4 11:24:41 Arthritis of acromiocl avicular joint 697353422 Active 2023 Santo Case MD [address], [place], [address] , [facility] 4 11:24:41 Clavicle pain 881843492 Active 2023 Santo Case MD [address], [place], [address] , [facility] 4 11:24:41 Impingeme nt syndrome of left shoulder region 855255391602 104 Active 2024 JOSE A MendozaT [address], [place], [address] , [facility] 5 13:48:32 Tear of medial meniscus of knee 338791250 Active 2024 Neena Quezada PA-C [address], [place], [address] , [facility] 5 14:27:52 Mass of knee joint 347868024 Active 2024 Neena Quezada PA-C [address], [place], [address] , [facility] 5 14:27:57 Problem Notes None recorded. Procedures Surgical History Date Name Laterality Status Provider Name and Address Organization Details Recorded Time 23776 Therapeutic Exercise (1:1) cancelled JOSE A MendozaT [address], [place], [address], [facility] 08/27/2024 08:08:59 5 28169: Hot or Cold Pack cancelled Esteban Echevarria DPT [address], [place], [address], [facility] 08/27/2024 08:08:59 5 50635: Manual therapy cancelled Esteban Echevarria DPT [address], [place], [address], [facility] 08/27/2024 08:08:59 5 06857 Therapeutic Exercise (1:1) completed Des Brand PTA [address], [place], [address], [facility] 08/25/2024 11:29:22 5 11666: Hot or Cold Pack completed Des Brand SUPER[employer]UC[employer] [address], [place], [address], [facility] 08/22/2024 09:54:07 5 70384: Manual therapy completed Des Brand PTA [address], [place], [address], [facility] 08/25/2024 11:29:27 5 19528 Therapeutic Exercise (1:1) completed Des Brand [employer]PER[employer] [address], [place], [address], [facility] 08/21/2024 09:57:49 5 72481: Hot or Cold Pack completed Des Brand [employer] [address], [place], [address], [facility] 08/20/2024 10:53:25 5 00466 Therapeutic Exercise (1:1) completed Des Brand, [employer]UC[employer] [address], [place], [address], [facility] 08/19/2024 09:48:55 5 60462: Hot or Cold Pack completed Des Brand, SUPER[employer]UC[employer] [address], [place], [address], [facility] 08/19/2024 08:30:47 5 00143 Therapeutic Exercise (1:1) completed Des Brand, [employer]PER[employer] [address], [place], [address], [facility] 08/14/2024 10:06:53 5 91477: Hot or Cold Pack completed Des Brand, [employer] [address], [place], [address], [facility] 08/14/2024 10:06:38 5 74922: Manual therapy completed Des Brand, [employer] [address], [place], [address], [facility] 08/14/2024 10:06:28 5 28829 Therapeutic Exercise (1:1) completed Des Brand, SUPER[employer]UC[employer] [address], [place], [address], [facility] 08/12/2024 10:11:51 5 80667 Therapeutic Exercise (1:1) completed Des Brand, SUPER[employer]UC[employer] [address], [place], [address], [facility] 07/23/2024 15:20:12 5 07507: Hot or Cold Pack completed Des Brand, SUPER[employer] [address], [place], [address], [facility] 07/23/2024 11:13:28 5 20763 Therapeutic Exercise (1:1) completed Des Brand, [employer]PER[employer]UC[employer] [address], [place], [address], [facility] 07/21/2024 11:11:32 5 68543: Hot or Cold Pack completed Des Brand, SUPER[employer]UC[employer] [address], [place], [address], [facility] 07/21/2024 11:11:32 5 51898 Therapeutic Exercise (1:1) completed Des Brand, [employer]PER[employer] [address], [place], [address], [facility] 07/15/2024 13:25:22 5 50301: Hot or Cold Pack completed Des Brand, SUPER[employer]UCATION [address], [place], [address], [facility] 07/16/2024 11:42:19 5 72723 Therapeutic Exercise (1:1) completed JOSE A MendozaT [address], [place], [address], [facility] 07/14/2024 10:27:36 5 20188: Hot or Cold Pack completed JOSE A MendozaT [address], [place], [address], [facility] 07/14/2024 10:27:46 5 95047: Manual therapy completed JOSE A MendozaT [address], [place], [address], [facility] 07/14/2024 10:27:41 5 07680 Therapeutic Exercise (1:1) completed JOSE A MendozaT [address], [place], [address], [facility] 07/08/2024 13:35:42 5 41720: Low complexity PT Eval completed Esteban Echevarria, JOSE AT [address], [place], [address], [place] [facility] 07/08/2024 13:35:34 4 Sports Shoulder 4&1 completed Santo Case MD [address], [place], [address], [place] [facility] 04/09/2024 10:20:20 Imaging Results Imaging Date Name Status LastModifiedBy Organization Detail LastModifiedTime 04/16/2025 xr hip + pelvis, unilateral 2 or 3 view, 32585 completed Not Available [facility] , [address] , [place] , [address], , 04/16/2025 15:22:54 04/16/2025 xr hip + pelvis, unilateral 2 or 3 view, 94768 completed Not Available [facility] , [address] , [place] , [address], [place] , 04/16/2025 15:22:56 Procedure Notes None recorded. Medical Equipment None Reported. Allergies Allergen ID Allergen Name Allergen Category Reaction Reaction Severity Criticality Documentation Date Start Date Code Code System Note Provider Name and Address Organization Details Recorded Time 854157 sulfameth oxazole / trimethop rim medicatio n Not available Not available Not available 04/20/20252021 13105 RxNorm Unkno wn Not Available estelle - External Data Service - prod 5 08:14:32 432669 droperido l medicatio n Not available Not available high 05/07/20252024 3648 RxNorm Abnor mal mouth and tongu e movem ents, restl essne ss and irrit abili ty unrec ogniz ed react ion (text : Dysto nicolas, code: 62802 004) (from exter nal sourc e) Not Available estelle - External Data Service - prod 5 15:25:14 70794 Bactrim medicatio n Not available Not available Not available 08/06/20232017 53355 9 RxNorm Not Available [facility] 4 14:33:28 Medications Name Authored On Sig Start Date Stop Date Status Note Indication Fill Status Repeat Number Dispense Quantity LastModified by Organization Details LastModified Time oxyco done HCl-o xycod one-A SA 4 19:03:42 1 -2 Q6 PRN PAIN 08/30 aborted Statu s: 'Disc ontin ued'; Not Available Not availab le 0 Not Available Not Available [facility] 08/06/2023 19:03:42 diclo fenac sodiu m 75 mg table t,del ayed relea se 4 10:23:03 TAKE 1 TABL ET BY MOUT H TWIC E A DAY FOR 14 DAYS 08/27 aborted Not Available Not availab le 0 Not Available AMAN BRAND [facility] 08/28/2023 10:27:55 doxyc yclin e monoh ydrat e 100 mg table t 4 10:23:03 TAKE 1 TABL ET BY MOUT H TWIC E A DAY FOR 7 DAYS 08/27 aborted Not Available Not availab le 0 Not Available AMAN BRAND [facility] 08/28/2023 10:27:58 cyclo benza ravindra 5 mg table t 4 10:23:03 TAKE 1 TABL ET BY JOSE ARREGUIN E TIME S A DAY NEED ED FOR MUSC LE SPAS M 08/27 aborted Not Available Not availab le 0 Not Available AMAN BRAND [facility] 08/28/2023 10:28:00 eryth romyc in 5 mg/gr am (0.5 %) eye ointm ent 4 10:23:03 08/27 aborted Not Available Not availab le 0 Not Available AMAN BRAND [facility] 08/28/2023 10:28:03 Paxlo vid 300 mg (150 mg x 2)-10 0 mg table ts in a dose pack 4 07:13:03 TAKE 2 TABL ETS OF NIRM ATRE LVIR AND 1 TABL ET OF YOU MEJIA R TWIC E JONAH Y X 5 DAYS 07/04 aborted Not Available Not availab le 0 Not Available Janel Lopez [place] - [facility] 07/04/2024 13:05:43 amoxi cilli n 500 mg capsu le 5 05:57:45 TAKE 1 CAPS ULE EVER Y 6 HRS UNTI L GONE active Not Available Not availab le 0 Not Available Not Available [facility] 07/29/2024 05:57:45 napro xen 500 mg table t 5 05:57:45 TAKE 1 TABL ET BY MOUT H EVER Y 12 HOUR S NEED ED FOR PAIN active Not Available Not availab le 0 Not Available Not Available [facility] 07/29/2024 05:57:45 mayra us sulfa te 325 mg (65 mg iron) table t,del ayed relea se 5 22:09:42 active Not Available Not availab le 0 Not Available Not Available [facility] 08/20/2024 22:09:42 folic acid 1 mg table t 5 22:09:42 active Not Available Not availab le 0 Not Available Not Available [facility] 08/20/2024 22:09:42 clotr imazo le 1 % [...] 15:57:52 oxyco done 5 mg table t 5 15:57:52 TAKE 1 TABL ET BY MOUT [...] estelle - External Data Service - prod 05/05/2025 12:38:17 lorat adine 10 mg table t 12:38:17 TAKE 1 TABL ET BY MOUT H 1 TIME EACH DAY. active Not Available Not availab le 0 Not Available Not Available [facility]elle - [employer] - prod 05/05/2025 12:38:17 omepr azole 20 mg capsu le,de layed relea se 21:55:29 TAKE 1 CAPS ULE BY MOUT H EVER Y DAY FOR 90 DAYS active Not Available Not availab le 0 Not Available Not Available [facility] [employer] - prod 05/21/2025 21:55:29 Vitals Date Recorded Body height Body mass index (BMI) Body weight Provider Name and Address Organization Details Last Updated DateTime 04/16/2025 177.8 cm 27.3 kg/m2 27679.55 g LUCIO DOLAN [facility] 04/16/2025 15:14:54 Social History Question Answer Notes LastModified by Organizat ion Details LastModified Time Tobacco Smoking Status Never Smoker JANNETH ORTIZ [facility] 10/03/2024 10:08:50 What Is Your Level Of Alcohol Consumption? Occasional JANNETH ORTIZ [facility] 10/03/2024 10:08:50 Social History Observation Description Date Observed Sex Unknown 04/16/2025 Legal Sex Male Status Not (finding) 05/30/20 25 No social history survey screeners recorded No social history SDOH screeners recorded Functional Status Question Answer Note LastModified by Organizat ion Details LastModified Time What is your level of alcohol consumption? Occasional JANNETH ORTIZ [facility] 10/03/2024 10:08:50 How many times per week do you consume alcohol? Less than 1 time per week JANNETH ORTIZ [facility] 10/03/2024 10:08:50 Date Assessment Value LastModified by Organizat ion Details LastModified Time 07/08/2024 DASH Outcome Measure 62 Esteban Echevarria DPT [facility] 07/08/2024 14:01:00 No Functional SDOH screeners [...] Disease N Heart Trouble N Heart Attack (SD) N Gastrointestinal Disease N Cholesterol N Diabetes [...] ICD10 Code Diagnosis IMO Codes Diagnosis Note [id number] SANDER White [address] [place] [address] 04/16/2025 15:09:13 04/27/2025 15:32:02 Pain of hip region 85030255 M25.552 213365 Health Concerns Section Related Observation LastModified by Organization Detai ls LastModified Time None Recorded Concern Status LastModified by Organization Details LastModified Time None Recorded SDOH Concern Status LastModified by Organization Detai ls LastModified Time None Recorded Payers Encounter Date Sequence Insurance Name Policy Number Policy Christiansen Covered Member ID Christiansen Member ID Guarantor Name 04/16/2025 1 [facility] NET PLAN (MEDICAID HMO) JOLIE Amaro [id number] Chi Amaro Notes Date Note Type Note [...] Alert and lucid. 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 No spasticity [...] and Tylenol. Call with any questions or concerns.[employer] speech recognition customer solutions teammate software was used to create portions of this document. An attempt at proofreading has been made to minimize errors. Please call for corrections. Hubert Harper PA-C [address] [facility] [address], [place], [address], [facility] 04/20/2025 07:37:16 Care Team Name Role Member ID Specialty Address Phone [facility] Primary Care Provider [phone] [facility], [place]
--- OUTSIDE RECORDS SUMMARY | 2025-05-30 09:17 | XMS_ITS | Clinical Summary ---
Author Organization [facility] Address [address] [address] Phone Care Team Providers Care Collet Gluer Name Role Phone Josiah Tinoco MD Primary [...] topic Medical Devices Not on file Insurance [facility] Member Subscriber Plan / Payer (Ef fective 2018-Present) Name:Chi Amaro Relation to Subscriber:Self Name:Chi Amaro Payer ID:[id number] Group ID:[id number] Type:Medicaid Address: [place] [id number] [facility]ista[facility] [place] [address] [address] [place] [address] [facility] Care Teams Collet Gluer Relationship Specialty Start Date End Date Josiah Tinoco MD [address] [place] [id number] PCP - General 08/04/24 Additional Source Comments The information contained in this document represents components of the legal health record. It is not the complete legal health record.[facility]
--- OUTSIDE RECORDS SUMMARY | 2025-05-30 09:17 | XMS_ITS | Continuity of Care Document ---
Author Organization [facility], ROBIN K[facility] Clinical Address [address] [place] [address] Care Team Providers Care Band Manager Name Role Phone [facility] Care Provider Assessment No assessment recorded. Plan of Treatment Reminders Order Date Submit Date Provider Name Organization Details Last Modified By Last Modified Time Details Appointments NEW PATIEN T 15 2025 09:00A M Beverly Hackett PA-C Not available Not available Not available PT INITIA Kassandra EVAL 2025 02:30P M Esteban Echevarria DPT Not available Not available Not available Lab None record ed. Referral physic al therap ist referr al 2024 09:26: 10 025 José Manuel butler PA-C [facility] [address], [place], [address], [facility] 05/25/2025 08:45:47 Procedures None record ed. Surgeries None record ed. Imaging None record ed. MedicationOrders None record ed. VaccineOrders None record ed. Patient TargetsNo targets recorded. Patient InstructionsNo instructions recorded. Reason for Referral Physical Therapist Referral for History of arthroscopic procedure on shoulder s/p L shldr AAA SAD FE w/ Dr. Case 06/2024 rom, stretching and strengthening Referring Physician: José Manuel Schaefer, Orthopedic Surgery, Encounter Date: 05/22/2025 Problems Name Problem SNOMED Code Status Onset Date Resolution Date Notes Provider Name and Address Organization Details Recorded Time No complaint s [id number] Active Status: 'I'; Not Available [facility] 4 09:16:31 Closed fracture of shaft of right clavicle 597891512498 Active 2017 Problem Code: S42.021A ; Problem Code Type: ICD-10; Status: 'A'; Not Available [facility] 4 11:14:31 Fracture of clavicle 31689857 Active 2017 Problem Code: S42.001D ; Problem Code Type: ICD-10; Status: 'A'; Not Available [facility] 4 11:14:31 Closed fracture of right clavicle 442724834684 Active 2017 Problem Code: S42.001A ; Problem Code Type: ICD-10; Status: 'A'; Not Available [facility] 4 11:14:32 Contusion of left thumb 052616379064 72258 Active 2018 Problem Code: S60.012A ; Problem Code Type: ICD-10; Status: 'A'; Not Available [facility] 4 11:14:31 Closed fracture of acromial end of right clavicle 676848447805 Active 2019 Problem Code: S42.034A ; Problem Code Type: ICD-10; Status: 'A'; Not Available [facility] 4 11:14:32 Removal of internal fixation device Active 2019 Problem Code: Z47.2; Problem Code Type: ICD-10; Status: 'A'; Not Available [facility] 4 11:14:31 Fracture of acromial end of clavicle 38108439 Active 2019 Problem Code: S42.034D ; Problem Code Type: ICD-10; Status: 'A'; Not Available [facility] 4 11:14:31 Fracture of shaft of clavicle 79865229 Active 2019 Problem Code: S42.021D ; Problem Code Type: ICD-10; Status: 'A'; Not Available [facility] 4 11:14:32 Pain of right knee joint 548713978344 100 Active 2023 Monroe Long MD [address], [place], [address] , [facility] 4 14:26:49 Fracture of clavicle 87915734 Active 2023 Santo Case MD [address], [place], [address] , [facility] 4 11:24:41 Arthritis of acromiocl avicular joint 776604327 Active 2023 Santo Case MD [address], [place], [address] , [facility] 4 11:24:41 Clavicle pain 770514173 Active 2023 Santo Case MD [address], [place], [address] , [facility] 4 11:24:41 Impingeme nt syndrome of left shoulder region 498309692421 104 Active 2024 Esteban Echevarria DPT [address], [place], [address] , [facility] 5 13:48:32 Tear of medial meniscus of knee 072885567 Active 2024 Neena Quezada PA-C [address], [place], [address] , [facility] 5 14:27:52 Mass of knee joint 639683230 Active 2024 Neena Quezada PA-C [address], [place], [address] , [facility] 5 14:27:57 Problem Notes None recorded. Procedures Surgical History Date Name Laterality Status Provider Name and Address Organization Details Recorded Time 5 87806 Therapeutic Exercise (1:1) cancelled Esteban Catjakis, DPT [address], [place], [address], [facility] 08/27/2024 08:08:59 5 86193: Hot or Cold Pack cancelled Estebansai Echevarria, DPT [address], [place], [address], [facility] 08/27/2024 08:08:59 5 93309: Manual therapy cancelled Esteban Echevarria, DPT [address], [place], [address], [facility] 08/27/2024 08:08:59 5 82519 Therapeutic Exercise (1:1) completed Des Brand, SCOUT EXECUTIVE [address], [place], [address], [facility] 08/25/2024 11:29:22 5 30163: Hot or Cold Pack completed Des Brand, SCOUT EXECUTIVE [address], [place], [address], [facility] 08/22/2024 09:54:07 5 54135: Manual therapy completed Des Brand, SCOUT EXECUTIVE [address], [place], [address], [facility] 08/25/2024 11:29:27 5 17826 Therapeutic Exercise (1:1) completed Des Brand, SCOUT EXECUTIVE [address], [place], [address], [facility] 08/21/2024 09:57:49 5 28505: Hot or Cold Pack completed Des Brand, SCOUT EXECUTIVE [address], [place], [address], [facility] 08/20/2024 10:53:25 5 84725 Therapeutic Exercise (1:1) completed Des Brand, SCOUT EXECUTIVE [address], [place], [address], [facility] 08/19/2024 09:48:55 5 38100: Hot or Cold Pack completed Des Brand PTA [address], [place], [address], [facility] 08/19/2024 08:30:47 5 87734 Therapeutic Exercise (1:1) completed Des Brand PTA [address], [place], [address], [facility] 08/14/2024 10:06:53 5 79506: Hot or Cold Pack completed Des Brand PTA [address], [place], [address], [facility] 08/14/2024 10:06:38 5 68633: Manual therapy completed Des Brand PTA [address], [place], [address], [facility] 08/14/2024 10:06:28 5 71918 Therapeutic Exercise (1:1) completed Des Brand PTA [address], [place], [address], [facility] 08/12/2024 10:11:51 5 97311 Therapeutic Exercise (1:1) completed Des Brand PTA [address], [place], [address], [facility] 07/23/2024 15:20:12 5 11977: Hot or Cold Pack completed Des Brand PTA [address], [place], [address], [facility] 07/23/2024 11:13:28 5 74284 Therapeutic Exercise (1:1) completed Des Brand SCOUT EXECUTIVE [address], [place], [address], [facility] 07/21/2024 11:11:32 02/17/202 5 18780: Hot or Cold Pack completed Des Brand, SCOUT EXECUTIVE [address], [place], [address], [facility] 07/21/2024 11:11:32 5 70814 Therapeutic Exercise (1:1) completed Des Brand, SCOUT EXECUTIVE [address], [place], [address], [facility] 07/15/2024 13:25:22 5 70024: Hot or Cold Pack completed Des Brand, SCOUT EXECUTIVE [address], [place], [address], [facility] 07/16/2024 11:42:19 5 01133 Therapeutic Exercise (1:1) completed Esteban Echevarria DPT [address], [place], [address], [facility] 07/14/2024 10:27:36 5 73126: Hot or Cold Pack completed Esteban Echevarria DPT [address], [place], [address], [facility] 07/14/2024 10:27:46 5 67333: Manual therapy completed Esteban Echevarria DPT [address], [place], [address], [facility] 07/14/2024 10:27:41 5 69009 Therapeutic Exercise (1:1) completed Esteban Echevarria DPT [address], [place], [address], [facility] 07/08/2024 13:35:42 5 43115: Low complexity PT Eval completed Esteban Echevarria DPT [address], [place], [address], [facility] 07/08/2024 13:35:34 11/06/202 4 Sports Shoulder 4&1 completed Santo Case MD [address] [facility] [address], [place], [address], [facility] 04/09/2024 10:20:20 Imaging Results None recorded. Procedure Notes None recorded. Medical Equipment None Reported. Allergies Allergen ID Allergen Name Allergen Category Reaction Reaction Severity Criticality Documentation Date Start Date Code Code System Note Provider Name and Address Organization Details Recorded Time 109074 sulfameth oxazole / trimethop rim medicatio n Not available Not available Not available 04/20/20252021 94855 RxNorm Unkno wn Not Available [facility] - External Data Service - prod 5 08:14:32 486115 droperido l medicatio n Not available Not available [facility] 05/07/20252024 3648 RxNorm Abnor mal mouth and tongu e movem ents, restl essne ss and irrit abili ty unrec ogniz ed react ion (text : Dysto nicolas, code: 43598 004) (from exter nal sourc e) Not Available [facility] - External Data Service - prod 5 15:25:14 18279 Bactrim medicatio n Not available Not available Not available 08/06/20232017 34049 9 RxNorm Not Available [facility] 4 14:33:28 Medications Name Authored On Sig Start Date Stop Date Status Note Indication Fill Status Repeat Number Dispense Quantity LastModified by Organization Details LastModified Time oxyco done HCl-o xycod one-A SA 4 19:03:42 1 -2 Q6 PRN PAIN 08/30 aborted Statu s: 'Disc ontin ued'; Not Available Not availab le 0 Not Available Not Available [facility] 08/06/2023 19:03:42 diclo fenac sodiu m 75 mg table t,del ayed relea se 4 10:23:03 TAKE 1 TABL ET BY MOUT H TWIC E A DAY FOR 14 DAYS 08/27 aborted Not Available Not availab le 0 Not Available AMAN BRAND [facility] 08/28/2023 10:27:55 doxyc yclin e monoh ydrat e 100 mg table t 4 10:23:03 TAKE 1 TABL ET BY MOUT H TWIC E A DAY FOR 7 DAYS 08/27 aborted Not Available Not availab le 0 Not Available AMANMERARY BRAND [facility] 08/28/2023 10:27:58 cyclo benza ravindra 5 mg table t 4 10:23:03 TAKE 1 TABL ET BY MOUT H THRE E TIME S A DAY NEED ED FOR MUSC LE SPAS M 08/27 aborted Not Available Not availab le 0 Not Available AMAN BRAND [facility] 08/28/2023 10:28:00 eryth romyc in 5 mg/gr am (0.5 %) eye ointm ent 4 10:23:03 08/27 aborted Not Available Not availab le 0 Not Available AMAN BRAND [facility] 08/28/2023 10:28:03 Paxlo vid 300 mg (150 mg x 2)-10 0 mg table ts in a dose pack 4 07:13:03 TAKE 2 TABL ETS OF NIRM ATRE LVIR AND 1 TABL ET OF YOU MEJIA R TWIC E JONAH Y X 5 DAYS 07/04 aborted Not Available Not availab le 0 Not Available Janel Lopez [facility] 07/04/2024 13:05:43 amoxi cilli n 500 mg capsu le 5 05:57:45 TAKE 1 CAPS ULE EVER Y 6 HRS UNTI L GONE active Not Available Not availab le 0 Not Available Not Available [facility] 07/29/2024 05:57:45 napro xen 500 mg table t 5 05:57:45 TAKE 1 TABL ET BY MOUT H EVER Y 12 HOUR S NEED ED FOR PAIN active Not Available Not availab le 0 Not Available Not Available [facility] 07/29/2024 05:57:45 mayra us sulfa te 325 mg (65 mg iron) table t,del ayed relea se 5 22:09:42 active Not Available Not availab le 0 Not Available Not Available [facility] 08/20/2024 22:09:42 folic acid 1 mg table t 5 22:09:42 active Not Available Not availab le 0 Not Available Not Available [facility] 08/20/2024 22:09:42 clotr imazo le 1 [...] aceta minop hen 500 mg table t 5 15:57:52 TAKE 1 TABL ET BY MOUT H EVER Y 6 HOUR S NEED ED FOR PAIN active Not Available Not availab le 0 Not Available Not Available [facility] - External Data Service - prod 04/13/2025 15:57:52 amoxi cilli n 875 mg-po tassi um clavu lanat e 125 mg table t 5 15:57:52 TAKE 1 [...] cyclo benza ravindra 10 mg table t 5 15:57:52 TAKE 1 TABL ET BY MOUT H AT BEDT FRANCIA active Not Available Not availab le 0 Not Available Not Available [facility] - External Data Service - prod 04/13/2025 15:57:52 gabap entin 100 mg capsu le 5 15:57:52 TAKE 2 CAPS ULES BY MOUT H 3 TIME S A DAY active Not Available Not availab le 0 Not Available Not Available [facility] - External Data Service - prod 04/13/2025 15:57:52 ibupr ofen 800 mg table t 5 15:57:52 TAKE 1 [...] 15:57:52 predn isone 20 mg table t 5 15:57:52 TAKE 2 TABL ETS BY MOUT H ONCE JONAH Y active Not Available Not availab le 0 Not Available Not Available [facility] - External Data Service - prod 04/13/2025 15:57:52 baclo fen 10 mg table t 5 12:38:17 TAKE 1 TABL ET (10 MG) BY MOUT H AT BEDT FRANCIA FOR 10 DAYS active Not Available Not availab le 0 Not Available Not Available [facility] - External Data Service - prod 05/05/2025 12:38:17 lorat adine 10 mg table t 5 12:38:17 TAKE 1 TABL ET BY MOUT [...] [facility] - External Data Service - prod 05/21/2025 21:55:29 Vitals Date Recorded Body height Body mass index (BMI) Body weight Provider Name and Address Organization Details Last Updated DateTime 05/22/2025 177.8 cm 27.3 kg/m2 49455.55 g Janel Lopez [facility] 05/22/2025 09:05:37 Social History Question Answer Notes LastModified by Organizat ion Details LastModified Time Tobacco Smoking Status Never Smoker [facility] 10/03/2024 10:08:50 What Is Your Level Of Alcohol Consumption? Occ[facility]ional [facility] 10/03/2024 10:08:50 Social History Observation Description Date Observed Sex Unknown 05/22/2025 Legal Sex Male Status Not (finding) 05/30/20 25 No social history survey screeners recorded No social history SDOH screeners recorded Functional Status Question Answer Note LastModified by Organizat ion Details LastModified Time What is your level of alcohol consumption? [facility] 10/03/2024 10:08:50 How many times per week do you consume alcohol? Less than 1 time per week [facility] 10/03/2024 10:08:50 Date Assessment Value LastModified by Organizat ion Details LastModified Time 07/08/2024 DASH Outcome Measure 62 Esteban Echevarria DPT [facility] 07/08/2024 14:01:00 No Functional SDOH screeners recorded [...] Disease N Heart Trouble N Heart Attack ([place]) N Gastrointestinal Disease N Cholesterol N Diabetes [...] ICD10 Code Diagnosis IMO Codes Diagnosis Note [id number] [facility] [address] [place] [address] 05/22/2025 08:58:03 05/22/2025 09:28:56 History of arthroscopic procedure on shoulder 700771669 Z98.890 [id number] Health Concerns Section Related Observation LastModified by Organization Detai ls LastModified Time None Recorded Concern Status LastModified by Organization Details LastModified Time None Recorded SDOH Concern Status LastModified by Organization Detai ls LastModified Time None Recorded Payers Encounter Date Sequence Insurance Name Policy Number Policy Christiansen Covered Member ID Christiansen Member ID Guarantor Name 05/22/2025 1 [facility] HEALTH NET PLAN (MEDICAID HMO) [facility] Chi Amaro [id number] Chi [place]aro Notes Date Note Type Note Provider Name and Address Organization Details Recorded Time 05/22/2025 text/html I am seeing the patient [...] tenderness over the AC joint or distal clavicle.Impression : Status post left shoulder arthroscopy, with more recent falls resulting in contusion left shoulderPlan: Reviewed and discussed at length conservative care. Elected to proceed with reviewed course of physical therapy for the left shoulder. Will follow-up with us as needed. José Manuel Schaefer PA-C [address] [facility] [address], [place], [address], [facility] 05/22/2025 09:28:55 Care Team Name Role Member ID Specialty Address Phone [facility] Primary Care Provider [id number] [address], [place]
[2025-05-30 10:13] VITALS: BP 122/80; PULSE 61; RESP 16; TEMP 36.5; O2SAT 98; BMI 29.8
--- NOTE | 2025-05-30 10:13 | MHC.OFFWIV ---
Intake Vital Signs 05/30/25 10:13 Height 5 ft 9 in Weight 202 lb BMI 29.8 BP 122/80 Blood Pressure Location Rt brachial Position Sitting Respiration 16 Pulse 61 Pulse Source Pulse Oximeter Temp 97.7 F Temp Source Oral Pulse Oximetry (%) 98 Oxygen Delivery Method Room Air Intake Visit Reasons: EP congestion Intake Note: Pt is here today c/o nasal congestion and sinus pressure x1week Patient Tobacco Use Status: Former Tobacco user (quit about 5 years ago) Allergies sulfamethoxazole (From Bactrim) Allergy (Severe, Verified 05/20/25 10:59) Hives trimethoprim (From Bactrim) Allergy (Severe, Verified 05/20/25 10:59) Hives HPI EP congestion HPI Details Patient is a 35-year-old male with no underlying immuno suppressive history given, who comes to the walk-in clinic complaining of about a week of upper respiratory infection symptoms. He has had nasal congestion, sinus pressure, occasional cough, mild headache, and mild sore throat. He denies fever or chills, severe headache, weakness or dizziness, vertigo, myalgias or malaise, severe cough, shortness of breath, chest discomfort, severe sore throat, or other significant associated symptoms. [facility] Medical History History of broken collarbone Chest wall contusion Contusion of hip, left Surgical History History of surgery Social History Housing: House Alcohol intake: current Alcohol intake frequency: holidays/special occasions only Patient Tobacco Use Status: Former Tobacco user (quit about 5 years ago) Tobacco use type: Cigarette Years Smoked: 10 years e-Cigarette/Vaping Use: Former Use Second Hand Smoke Exposure: Yes Substance Use Type: Marijuana service: No Current occupational status: employed Current occupation: [employer] Cognitive needs: No Hearing needs: No Vision needs: No Review of Systems Const All systems reviewed & are unremarkable except as noted in HPI and below Physical Exam Vital Signs: Last Vital Signs Temp 97.7 F 05/30/25 10:13 Pulse 61 05/30/25 10:13 Resp 16 05/30/25 10:13 BP 122/80 05/30/25 10:13 Pulse Ox 98 05/30/25 10:13 Oxygen Delivery Method Room Air 05/30/25 10:13 BMI result Body Mass Index 29.8 Const General: cooperative, healthy appearing, comfortable, no acute distress, alert, awake, Physically active and well groomed; No anxious, diaphoretic, ill appearing, intoxicated appearing, poor hygiene or tired appearing Nutritional Appearance: average body habitus Orientation/consciousness: oriented to person Limitations: no limitations HEENT Head: Yes normal to inspection, Yes normocephalic and Yes atraumatic Ears: hearing grossly normal bilaterally, external ears normal, EAC's normal and TM abnormal (Hazy bilaterally, but no erythema, injection, or bulging) General nose exam: Normal external nose present, Normal septum present, Abnormal mucous membranes and turbinates present and Nasal discharge present Face and sinus: Yes normal facial exam, Yes face symmetric, No erythema, No edema, No fluctuance and Yes sinus tenderness (Mild bilateral ethmoid ) Mouth: Normal oral and palatal mucosa present, lip normal and tongue normal Throat: Yes posterior oropharynx normal, Yes abnormal tonsil (mildly erythematous bilaterally), No peritonsillar mass, No uvular edema and No cobblestoning Eyes General: appearance normal, both eyes and all related structures Neck Neck: Yes normal visual inspection, Yes full ROM, Yes no lymphadenopathy, Yes supple and No anterior neck swelling Resp Effort & Inspection: normal respiratory effort, able to speak in complete sentences, no audible wheezes, no cough, no grunting, not labored, no nasal flaring, no retractions and symmetric chest movement Auscultation: clear to auscultation bilaterally, no crackles, no rales, no rhonchi, no wheezes, lung sounds not diminished and No rub present Cardio Palpation: normal PMI Rate: regular rate Rhythm: regular rhythm Heart sounds: S1 normal heart sound present and S2 normal heart sound present Skin Other: Good color, warm and dry Neuro General: oriented to person Psych Appearance: grossly normal Mental Status: mental status grossly normal Speech and movement: Normal speech and movement present Affect: normal affect Attitude: cooperative Thought process: Normal thought process present Insight: Good insight present (Psych) Judgement: Good judgement present (Psych) Assessment & Plan Assessment & Plan (1) Upper respiratory infection: Code(s): J06.9 - Acute upper respiratory infection, unspecified Qualifiers: URI type: unspecified viral URI Qualified Code(s): J06.9 - Acute upper respiratory infection, unspecified Plan: Plan Pending flu COVID and RSV results to determine underlying etiology for upper respiratory infection. I wrote him for ibuprofen to help with the sinus pressure. Discussed symptomatic treatment including heating of the ears, periauricular massage, adequate water intake, massage to the neck and shoulders, humidified air, nasal saline spray or steroid nasal spray for nasal congestion as needed, and monitor for symptoms worsening. He knows to go to the emergency department with worrisome symptoms. Also he complains of having a hole in his wrist immobilizer that he was given in his office 2 weeks ago. Apparently there was metal that started to poke out of it early on, and he removed the metal insert. I told him that I do not have anyone in the office that can advise me as to if we can give him a new wrist splint, so he should discuss this with the transport company manager, and they can follow up with him on Sunday. In the meantime, he can still wear the most immobilizer as he was advised, as it is still steady enough to splint the area. Orders: Orders SARS-CoV2/FLU/RSV 05/30/25 R09.89 - Other specified symptoms and signs involving the circulatory and respiratory systems Medications: New ibuprofen 800 mg PO Q8H PRN 30 tabs 0RF pain Coding Level of Care Code Est Pt Level 4 (61318) Diagnoses Viral upper respiratory tract infection J06.9 URI type: unspecified viral URI
== END 2025-05-30 14:04 | disposition home or self-care (01) ==
PROVIDERS: PCP Physician Assistant; Visit Provider Physician Assistant Medical
DX: J06.9 Acute upper respiratory infection, unspecified (principal)